=== PATIENT | female | born 1935 | race Caucasian/White ===

== ENCOUNTER → 2018-03-08 | Outpatient (CLI) | payer MEDICARE ==
--- NOTE | 2018-03-09 13:01 | MM ---
Reason for exam: screening (asymptomatic). Last mammogram was performed 1 year ago. History: Benign excisional biopsy of the right breast. Took estrogen for 6 months. Physical Findings: A clinical breast exam by your physician is recommended on an annual basis and results should be correlated with mammographic findings. MG Screening Mammo w CAD Bilateral CC and MLO view(s) were taken. Prior study comparison: March 08, 2017, mammogram. January 09, 2016, mammogram. The breast tissue is heterogeneously dense. This may lower the sensitivity of mammography. Stable benign calcifications. There is no discrete abnormality. No significant changes when compared with prior studies. ASSESSMENT: Benign, BI-RAD 2 RECOMMENDATION: Routine screening mammogram of both breasts in 1 year.
== END | disposition home or self-care (01) ==
LOC: RADMAMWWP 10:53
PROVIDERS: ATTEND Family Medicine
DX: Z12.31 Encounter for screening mammogram for malignant neoplasm of breast (principal)
CPT/HCPCS: 77067

== ENCOUNTER 2022-10-28 17:57 | Inpatient (IN) | payer MEDICARE ==
[2022-10-28] MEDS ORDERED: DILTIAZEM DRIP BOLUS FROM BAG 1 MG SOLN IV ONE (19:09)
[2022-10-28] MEDS ORDERED: ENOXAPARIN 80 MG/0.8 ML SYRINGE SQ STA (19:10)
--- NOTE | 2022-10-28 19:11 | XR ---
EXAMINATION TYPE: XR chest 1V portable DATE OF EXAM: 10/28/2022 7:05 PM COMPARISON: none TECHNIQUE: XR chest 1V portable Frontal view of the chest. CLINICAL INDICATION:Female, 86 years old with history of dysrhythmia; FINDINGS: Lungs/Pleura: Low lung volumes are present. There is no evidence of pleural effusion, focal consolida tion, or pneumothorax. Pulmonary vascularity: Unremarkable. Heart/mediastinum: Cardiomediastinal silhouette is unremarkable. Musculoskeletal: No acute osseous pathology. IMPRESSION: No acute cardiopulmonary disease/process.
--- NOTE | 2022-10-28 19:14 | ED ---
General Adult HPI - General Chief complaint: Nausea/Vomiting/Diarrhea Stated complaint: Weakness Time Seen by Provider: 10/28/22 18:49 Source: patient Mode of arrival: ambulatory Limitations: no limitations - History of Present Illness Initial comments: this patient is an 86-year-old woman with history of hypertension who presents to have evaluation of a constellation of symptoms that started approximately 5 days ago. She initially started with generalized malaise and then developed nausea vomiting and diarrhea on Wednesday. She did not note any hematemesis or coffee grounds. The patient did not have any bloody or dark tarry stools. She did not note abdominal pain other than some crampy discomfort. She states over the past couple of days she has been getting more fatigued and weak. Onset/Timin -: days(s) Severity scale (1-10): 0 Improves with: none Worsens with: none Associated Symptoms: nausea/vomiting, weakness Treatments Prior to Arrival: none - Related Data Home Medications Medication Instructions Recorded Confirmed Atorvastatin [Lipitor] 40 mg PO DAILY 10/28/22 10/28/22 Ondansetron Odt [Zofran ODT] 4 mg PO Q8HR PRN 10/28/22 10/28/22 Vit C/E/Zn/Coppr/Lutein/Zeaxan 1 cap PO DAILY 10/28/22 10/28/22 [Preservision Areds 2 Softgel] gemfibroziL [Lopid] 600 mg PO BID 10/28/22 10/28/22 Previous Rx's Medication Instructions Recorded Apixaban [Eliquis] 5 mg PO BID #60 tab 11/02/22 Famotidine [Pepcid] 20 mg PO DAILY #7 tablet 11/02/22 Magnesium Oxide [Mag-Ox] 400 mg PO BID 7 Days #14 tab 11/02/22 Metoprolol Tartrate [Lopressor] 25 mg PO BID #60 tab 11/02/22 Tamsulosin [Flomax] 0.4 mg PO PC-BRKFST #30 cap 11/02/22 cefUROXime axetiL [Ceftin] 500 mg PO BID 7 Days #14 tab 11/02/22 Allergies Allergy/AdvReac Type Severity Reaction Status Date / Time Penicillins Allergy Rash/Hives Verified 10/28/22 20:40 Review of Systems ROS Statement: Those systems with pertinent positive or pertinent negative responses have been documented in the HPI. ROS Other: All systems not noted in ROS Statement are negative. Constitutional: Reports: weakness. Denies: fever, chills Respiratory: Denies: cough, dyspnea Cardiovascular: Reports: chest pain, palpitations. Denies: orthopnea, edema, syncope Gastrointestinal: Reports: nausea, vomiting, diarrhea. Denies: abdominal pain, constipation, hematemesis, melena, hematochezia Genitourinary: Denies: dysuria, hematuria Musculoskeletal: Denies: back pain Skin: Denies: rash Neurological: Denies: headache, weakness Past Medical History Past Medical History: Chest Pain / Angina, Hypertension Additional Past Medical History / Comment(s): Bladder infection History of Any Multi-Drug Resistant Organisms: None Reported Past Surgical History: No Surgical Hx Reported Past Psychological History: No Psychological Hx Reported Smoking Status: Never smoker Past Alcohol Use History: None Reported Past Drug Use History: None Reported General Exam Limitations: no limitations General appearance: alert, in no apparent distress Head exam: Present: atraumatic, normocephalic Eye exam: Present: normal appearance. Absent: scleral icterus, conjunctival injection ENT exam: Present: mucous membranes dry Neck exam: Present: normal inspection, full ROM Respiratory exam: Present: normal lung sounds bilaterally. Absent: respiratory distress, wheezes, rales, rhonchi, stridor, accessory muscle use Cardiovascular Exam: Present: tachycardia, irregular rhythm, normal heart sounds. Absent: systolic murmur, diastolic murmur, rubs, gallop GI/Abdominal exam: Present: soft. Absent: distended, tenderness, guarding, rebound, rigid, mass Extremities exam: Present: normal inspection, normal capillary refill. Absent: pedal edema, calf tenderness Back exam: Present: normal inspection. Absent: CVA tenderness (R), CVA tenderness (L) Neurological exam: Present: alert, oriented X3. Absent: motor sensory deficit Skin exam: Present: warm, dry, intact, normal color. Absent: rash Course Vital Signs 10/28/22 10/28/22 10/28/22 18:12 19:40 20:33 Temperature 98.8 F Pulse Rate 111 H 130 H 128 H Pulse Rate [ [employer] Counter Person ] Respiratory 20 18 17 Rate Blood Pressure 133/67 80/39 87/66 O2 Sat by Pulse 96 Oximetry 0410/28/22 10/28/22 21:37 21:45 22:22 Temperature Pulse Rate 134 H 121 H 114 H Pulse Rate [ [employer] Counter Person ] Respiratory 18 16 16 Rate Blood Pressure 94/77 104/77 93/55 O2 Sat by Pulse Oximetry 10/28/22 10/29/22 10/29/22 23:37 00:00 02:07 Temperature Pulse Rate 121 H 113 H 120 H Pulse Rate [ [employer] Counter Person ] Respiratory 18 16 18 Rate Blood Pressure 85/52 80/46 98/38 O2 Sat by Pulse 95 Oximetry 10/29/22 10/29/22 10/29/22 03:41 04:48 06:10 Temperature Pulse Rate 107 H 110 H 116 H Pulse Rate [ [employer] Counter Person ] Respiratory 18 18 16 Rate Blood Pressure 88/56 92/68 84/60 O2 Sat by Pulse Oximetry 10/29/22 10/29/22 10/29/22 07:15 08:00 08:20 Temperature 98.2 F Pulse Rate 114 H 115 H Pulse Rate [ 113 H [employer] Counter Person ] Respiratory 16 18 18 Rate Blood Pressure 97/68 82/61 O2 Sat by Pulse 97 Oximetry EKG Findings - EKG Results: EKG: interpreted by MARIA VICTORIA, normal ST/T EKG shows: tachycardia (rate 152 bpm), atrial fibrillation Procedures - Sepsis Sepsis Focused Exam #1 Sepsis Focused Exam Complete: Yes Vital Signs & RN Notes Reviewed: Yes Capillary Refill: < 2 Seconds: Fingers Peripheral Pulses: Normal: Radial (R) Skin Color: Normal for Patient Respiratory Exam: normal lung sounds Cardiovascular Exam: tachycardia, irregular rhythm Medical Decision Making - Medical Decision Making This patient is an 86-year-old woman presenting with nausea vomiting and diarrhea for approximately 5-6 days, becoming progressively more weak and fatigued. She has no history of kidney failure or of atrial fibrillation but presents with both of these conditions. Patient also with urinary tract infection and sepsis. Patient started on fluid boluses, antibiotics, Cardizem, Lovenox. The case is discussed with admitting physician and with government teacher. Treatment recommendations are incorporated. Consultations ordered. The patient did have chest x-ray which I interpreted as not showing acute infiltrate, congestive heart failure, pneumothorax. Was pt. sent in by a medical professional or institution (, PA, [facility], urgent care, hospital, or detention...) When possible be specific @ -[No] Did you speak to anyone other than the patient for history (EMS, parent, family, police, friend...)? What history was obtained from this source @ -[No] Did you review nursing and triage notes (agree or disagree)? Why? @ -[I reviewed and agree with nursing and triage notes] Were old charts reviewed (outside hosp., previous admission, EMS record, old EKG, old radiological studies, urgent care reports/EKG's, detention records)? Report findings @ -[No old charts were reviewed] Differential Diagnosis (chest pain, altered mental status, abdominal pain women, abdominal pain men, vaginal bleeding, weakness, fever, dyspnea, syncope, headache, dizziness, GI bleed, back pain, seizure, CVA, palpatations, mental health, musculoskeletal)? @ -[MDM differential vomiting EKG interpreted by me (3pts min.). @ -[As above] X-rays interpreted by me (1pt min.). @ -[None done] CT interpreted by me (1pt min.). @ -[None done] U/S interpreted by me (1pt. min.). @ -[None done] What testing was considered but not performed or refused? (CT, X-rays, U/S, labs)? Why? @ -[None] What meds were considered but not given or refused? Why? @ -[None] Did you discuss the management of the patient with other professionals (professionals i.e. , PA, [facility], lab, RT, psych nurse, social worker masters, cio, teacher, chief sales officer, bilingual case manager)? Give summary @ -[Admitting physician Was smoking cessation discussed for >3mins.? @ -[No] Was critical care preformed (if so, how long)? @ -[Yes 35 minutes Were there social determinants of health that impacted care today? How? (Homelessness, low income, unemployed, alcoholism, drug addiction, transportation, low edu. Level, literacy, decrease access to med. care, skilled nursing, rehab)? @ -[No] Was there de-escalation of care discussed even if they declined (Discuss DNR or withdrawal of care, Hospice)? DNR status @ -[No] What co-morbidities impacted this encounter? (DM, HTN, Smoking, COPD, CAD, Cancer, CVA, ARF, Chemo, Hep., AIDS, mental health diagnosis, sleep apnea, morbid obesity)? @ -[None] Was patient admitted / discharged? Hospital course, mention meds given and route, prescriptions, significant lab abnormalities, going to OR and other pertinent info. @ -[The patient is admitted to have further care as well as multiple medical consultations. The patient is started on Cardizem for the atrial fibrillation. She is started on antibiotics and fluids for urinary tract infection/sepsis. Fluids also to treat the hyponatremia. Undiagnosed new problem with uncertain prognosis? @ -[No] Drug Therapy requiring intensive monitoring for toxicity (Heparin, Nitro, Insulin, Cardizem)? @ -[Cardizem Were any procedures done? @ -[No] Diagnosis/symptom? @ -1. Acute nausea and vomiting 2. Acute renal failure 3. New onset atrial fibrillation, rapid ventricular response, acute 4. Urinary tract infection, acute 5. Hyponatremia 6. Lactic acidosis 7. Elevated troponin I Acute, or Chronic, or Acute on Chronic? @ -[default] Uncomplicated (without systemic symptoms) or Complicated (systemic symptoms)? @ -[Complicated Side effects of treatment? @ -[No] Exacerbation, Progression, or Severe Exacerbation? @ -[No] Poses a threat to life or bodily function? How? (Chest pain, [place], [place], pneumonia, PE, COPD, DKA, ARF, appy, cholecystitis, CVA, Diverticulitis, Homicidal, Suicidal, threat to staff... and all critical care pts) @ -[Yes - Lab Data Result diagrams: 11/02/22 07:36 11/02/22 07:36 Lab Results 10/28/22 10/28/22 10/28/22 Range/Units 19:06 19:06 19:06 WBC 12.2 H (3.8-10.6) k/uL RBC 4.41 (3.80-5.40) m/uL Hgb 11.6 (11.4-16.0) gm/dL Hct 35.1 (34.0-46.0) % MCV 79.7 L (80.0-100.0) fL MCH 26.3 (25.0-35.0) pg MCHC 33.0 (31.0-37.0) g/dL RDW 15.1 (11.5-15.5) % Plt Count 200 (150-450) k/uL MPV 8.2 Neutrophils % 91 % Lymphocytes % 3 % Monocytes % 3 % Eosinophils % 1 % Basophils % 0 % Neutrophils # 11.1 H (1.3-7.7) k/uL Lymphocytes # 0.4 L (1.0-4.8) k/uL Monocytes # 0.4 (0-1.0) k/uL Eosinophils # 0.1 (0-0.7) k/uL Basophils # 0.0 (0-0.2) k/uL PT 10.6 (9.0-12.0) sec INR 1.0 (<1.2) APTT 23.8 (22.0-30.0) sec Sodium 123 L (137-145) mmol/L Potassium 3.3 L (3.5-5.1) mmol/L Chloride 91 L (98-107) mmol/L Carbon Dioxide 13 L (22-30) mmol/L Anion Gap 19 mmol/L BUN 60 H (7-17) mg/dL Creatinine 3.53 H (0.52-1.04) mg/dL Est GFR (CKD-EPI)AfAm 13 (>60 ml/min/1.73 sqM) Est GFR (CKD-EPI)NonAf 11 (>60 ml/min/1.73 sqM) Glucose 159 H (74-99) mg/dL Lactic Ac Sepsis Rflx Plasma Lactic Acid Pawan (0.7-2.0) mmol/L Calcium 7.6 L (8.4-10.2) mg/dL Magnesium 2.0 (1.6-2.3) mg/dL Total Bilirubin 1.3 (0.2-1.3) mg/dL AST 102 H (14-36) U/L ALT 45 H (4-34) U/L Alkaline Phosphatase 204 H (38-126) U/L Troponin I (0.000-0.034) ng/mL Total Protein 6.2 L (6.3-8.2) g/dL Albumin 3.2 L (3.5-5.0) g/dL Urine Color Urine Appearance (Clear) Urine pH (5.0-8.0) Ur Specific Waite (1.001-1.035) Urine Protein (Negative) Urine Glucose (UA) (Negative) Urine Ketones (Negative) Urine Blood (Negative) Urine Nitrite (Negative) Urine Bilirubin (Negative) Urine Urobilinogen (<2.0) mg/dL Ur Leukocyte Esterase (Negative) Urine RBC (0-5) /hpf Urine WBC (0-5) /hpf Urine WBC Clumps (None) /hpf Urine Bacteria (None) /hpf Urine Mucus (None) /hpf Influenza Type A (PCR) (Not Detectd) Influenza Type B (PCR) (Not Detectd) RSV (PCR) (Not Detectd) SARS-CoV-2 (PCR) (Not Detectd) 10/28/22 10/28/22 10/28/22 Range/Units 19:06 19:12 20:20 WBC (3.8-10.6) k/uL RBC (3.80-5.40) m/uL Hgb (11.4-16.0) gm/dL Hct (34.0-46.0) % MCV (80.0-100.0) fL MCH (25.0-35.0) pg MCHC (31.0-37.0) g/dL RDW (11.5-15.5) % Plt Count (150-450) k/uL MPV Neutrophils % % Lymphocytes % % Monocytes % % Eosinophils % % Basophils % % Neutrophils # (1.3-7.7) k/uL Lymphocytes # (1.0-4.8) k/uL Monocytes # (0-1.0) k/uL Eosinophils # (0-0.7) k/uL Basophils # (0-0.2) k/uL PT (9.0-12.0) sec INR (<1.2) APTT (22.0-30.0) sec Sodium (137-145) mmol/L Potassium (3.5-5.1) mmol/L Chloride (98-107) mmol/L Carbon Dioxide (22-30) mmol/L Anion Gap mmol/L BUN (7-17) mg/dL Creatinine (0.52-1.04) mg/dL Est GFR (CKD-EPI)AfAm (>60 ml/min/1.73 sqM) Est GFR (CKD-EPI)NonAf (>60 ml/min/1.73 sqM) Glucose (74-99) mg/dL Lactic Ac Sepsis Rflx Plasma Lactic Acid Pawan (0.7-2.0) mmol/L Calcium (8.4-10.2) mg/dL Magnesium (1.6-2.3) mg/dL Total Bilirubin (0.2-1.3) mg/dL AST (14-36) U/L ALT (4-34) U/L Alkaline Phosphatase (38-126) U/L Troponin I 0.375 H* (0.000-0.034) ng/mL Total Protein (6.3-8.2) g/dL Albumin (3.5-5.0) g/dL Urine Color Yellow Urine Appearance Turbid H (Clear) Urine pH 5.5 (5.0-8.0) Ur Specific Waite 1.016 (1.001-1.035) Urine Protein 2+ H (Negative) Urine Glucose (UA) Negative (Negative) Urine Ketones Negative (Negative) Urine Blood Small H (Negative) Urine Nitrite Negative (Negative) Urine Bilirubin Negative (Negative) Urine Urobilinogen <2.0 (<2.0) mg/dL Ur Leukocyte Esterase Large H (Negative) Urine RBC 20 H (0-5) /hpf Urine WBC >182 H (0-5) /hpf Urine WBC Clumps Many H (None) /hpf Urine Bacteria Many H (None) /hpf Urine Mucus Rare H (None) /hpf Influenza Type A (PCR) Not Detected (Not Detectd) Influenza Type B (PCR) Not Detected (Not Detectd) RSV (PCR) Not Detected (Not Detectd) SARS-CoV-2 (PCR) Not Detected (Not Detectd) 10/28/22 10/28/22 Range/Units 20:27 21:06 WBC (3.8-10.6) k/uL RBC (3.80-5.40) m/uL Hgb (11.4-16.0) gm/dL Hct (34.0-46.0) % MCV (80.0-100.0) fL MCH (25.0-35.0) pg MCHC (31.0-37.0) g/dL RDW (11.5-15.5) % Plt Count (150-450) k/uL MPV Neutrophils % % Lymphocytes % % Monocytes % % Eosinophils % % Basophils % % Neutrophils # (1.3-7.7) k/uL Lymphocytes # (1.0-4.8) k/uL Monocytes # (0-1.0) k/uL Eosinophils # (0-0.7) k/uL Basophils # (0-0.2) k/uL PT (9.0-12.0) sec INR (<1.2) APTT (22.0-30.0) sec Sodium (137-145) mmol/L Potassium (3.5-5.1) mmol/L Chloride (98-107) mmol/L Carbon Dioxide (22-30) mmol/L Anion Gap mmol/L BUN (7-17) mg/dL Creatinine (0.52-1.04) mg/dL Est GFR (CKD-EPI)AfAm (>60 ml/min/1.73 sqM) Est GFR (CKD-EPI)NonAf (>60 ml/min/1.73 sqM) Glucose (74-99) mg/dL Lactic Ac Sepsis Rflx Y Plasma Lactic Acid Pawan 3.0 H* (0.7-2.0) mmol/L Calcium (8.4-10.2) mg/dL Magnesium (1.6-2.3) mg/dL Total Bilirubin (0.2-1.3) mg/dL AST (14-36) U/L ALT (4-34) U/L Alkaline Phosphatase (38-126) U/L Troponin I (0.000-0.034) ng/mL Total Protein (6.3-8.2) g/dL Albumin (3.5-5.0) g/dL Urine Color Urine Appearance (Clear) Urine pH (5.0-8.0) Ur Specific Waite (1.001-1.035) Urine Protein (Negative) Urine Glucose (UA) (Negative) Urine Ketones (Negative) Urine Blood (Negative) Urine Nitrite (Negative) Urine Bilirubin (Negative) Urine Urobilinogen (<2.0) mg/dL Ur Leukocyte Esterase (Negative) Urine RBC (0-5) /hpf Urine WBC (0-5) /hpf Urine WBC Clumps (None) /hpf Urine Bacteria (None) /hpf Urine Mucus (None) /hpf Influenza Type A (PCR) (Not Detectd) Influenza Type B (PCR) (Not Detectd) RSV (PCR) (Not Detectd) SARS-CoV-2 (PCR) (Not Detectd) Critical Care Time Critical Care Time: Yes (35 minutes) Disposition Clinical Impression: Urinary tract infection, Sepsis, Atrial fibrillation with RVR, Acute renal failure, Hyponatremia Disposition: ADMITTED IP TO THIS HOSP Condition: Stable Is patient prescribed a controlled substance at d/c from ED?: No
[2022-10-28 19:22] LABS: Basophils % (A) 0 %; Eosinophils # (A) 0.1 k/uL (0-0.7); Eosinophils % (A) 1 %; HCT 35.1 % (34.0-46.0); HGB 11.6 gm/dL (11.4-16.0); Lymphocytes # (A) 0.4 k/uL (1.0-4.8); Lymphocytes % (A) 3 %; MCH 26.3 pg (25.0-35.0); MCV 79.7 fL (80.0-100.0); Mean Platelet Volume 8.2; Monocytes # (A) 0.4 k/uL (0-1.0); Monocytes % (A) 3 %; Neutrophils # (A) 11.1 k/uL (1.3-7.7); Neutrophils % (A) 91 %; Platelet Count 200 k/uL (150-450); RBC 4.41 m/uL (3.80-5.40); RDW 15.1 % (11.5-15.5); WBC 12.2 k/uL (3.8-10.6)
[2022-10-28 19:29] LABS: Partial Thromboplastin Time 23.8 sec (22.0-30.0); Prothrombin Time 10.6 sec (9.0-12.0)
[2022-10-28] MEDS ORDERED: SODIUM CHLORIDE 0.9% 500 ML 500 ML IV STA ×2 (19:44→20:06)
[2022-10-28 19:45] LABS: Calcium 7.6 mg/dL (8.4-10.2); Total Bilirubin 1.3 mg/dL (0.2-1.3)
[2022-10-28 19:50] LABS: Albumin 3.2 g/dL (3.5-5.0); Potassium 3.3 mmol/L (3.5-5.1); Total Protein 6.2 g/dL (6.3-8.2)
[2022-10-28] MEDS ORDERED: POTASSIUM CHLORIDE ER 20 MEQ TAB.ER PO STA (20:06)
[2022-10-28] MEDS ORDERED: SODIUM CHLORIDE 0.9% 1,000 ML IV STA (20:06)
[2022-10-28] MEDS: DILTIAZEM 125 MG in SODIUM CHLORIDE 0.9% 100 ML IV SCH (21:23)
[2022-10-28 22:14] LABS: Appearance,Urine Turbid (Clear); Bacteria,Urine Many /hpf; Bilirubin,Urine Negative (Negative); Blood,Urine Small (Negative); Color,Urine Yellow; Glucose,Urine (UA) Negative (Negative); Ketones,Urine Negative (Negative); Leukocyte Esterase,Urine Large (Negative); Mucus,Urine Rare /hpf; Nitrite,Urine Negative (Negative); PH, Urine 5.5 (5.0-8.0); Protein,Urine 2+ (Negative); RBC,Urine 20 /hpf (0-5); Specific Gravity,Urine 1.016 (1.001-1.035); Urobilinogen,Urine <2.0 mg/dL (<2.0); WBC,Urine >182 /hpf (0-5)
[2022-10-28] MEDS ORDERED: VANCOMYCIN IV PER PHARMACY 1 EACH MISC MISCELLANE PRN (23:28)
[2022-10-28] MEDS ORDERED: VANCOMYCIN 1,250 MG in SODIUM CHLORIDE 0.9% 250 ML IVPB STA (23:36)
[2022-10-28] MEDS ORDERED: METHADONE 10 MG TAB PO STA (23:58)
[2022-10-29] MEDS ORDERED: ENOXAPARIN 80 MG/0.8 ML SYRINGE SQ SCH (09:00)
[2022-10-29] MEDS ORDERED: SODIUM CHLORIDE 0.9% 1,000 ML IV SCH (09:15)
[2022-10-29] MEDS ORDERED: SODIUM CHLORIDE 0.9% 500 ML 500 ML IV ONE (09:17)
[2022-10-29] MEDS ORDERED: ONDANSETRON ODT 4 MG TAB PO PRN (11:01)
[2022-10-29] MEDS: METOPROLOL TARTRATE 25 MG TAB PO SCH ×2 (11:31→20:38)
--- NOTE | 2022-10-29 11:32 | P.NPCON ---
History of Present Illness - Reason for Consult acute renal failure - History of Present Illness Reason for consultation: Acute kidney injury History of present illness: Patient is a 86-year-old female seen in renal consultation for acute kidney injury. Patient presented to the hospital due to generalized weakness. Patient's stay she felt as if she had the flu. She does admit to body aches but denies fever. She admits to burning with urination. Denies gross hematuria. Patient states she last voided yesterday morning. She denies any melena or hematochezia. No hemoptysis. Denies use of nonsteroidals. No shortness of breath but did have chest pain with palpitations. Patient was noted to be in A. fib with RVR and is currently on Cardizem drip. Patient's blood pressure has been on the lower side in the systolic 80s. She received a liter of normal saline bolus and has another half a liter bolus water. She is also receiving normal saline at 75 mL an hour. No edema. No history of diabetes. She was taking losartan as well as thiazide diuretic at home which are both currently held. She is on antibiotics for UTI. Family present at bedside. Vital signs - Blood pressure in the lower side. In A. fib. General: No acute distress. HEENT: Head exam is unremarkable. LUNGS: No audible rhonchi or wheezes. HEART: Irregular rate and rhythm. ABDOMEN: Mild generalized tenderness. No distention. EXTREMITITES: No edema. Past Medical History Past Medical History: Chest Pain / Angina, Hypertension Additional Past Medical History / Comment(s): Bladder infection History of Any Multi-Drug Resistant Organisms: None Reported Past Surgical History: No Surgical Hx Reported, Hysterectomy Past Psychological History: No Psychological Hx Reported Smoking Status: Never smoker Past Alcohol Use History: None Reported Past Drug Use History: None Reported Medications and Allergies Home Medications Medication Instructions Recorded Confirmed Type Atorvastatin [Lipitor] 40 mg PO DAILY 10/28/22 10/28/22 History Losartan/Hydrochlorothiazide 1 tab PO DAILY 10/28/22 10/28/22 History [Losartan-Hctz 100-12.5 mg Tab] Metoprolol Succinate (ER) [Toprol 50 mg PO HS 10/28/22 10/28/22 History Xl] Ondansetron Odt [Zofran Odt] 4 mg PO Q8HR PRN 10/28/22 10/28/22 History Vit C/E/Zn/Coppr/Lutein/Zeaxan 1 cap PO DAILY 10/28/22 10/28/22 History [Preservision Areds 2 Softgel] gemfibroziL [Lopid] 600 mg PO BID 10/28/22 10/28/22 History Allergies Allergy/AdvReac Type Severity Reaction Status Date / Time Penicillins Allergy Rash/Hives Verified 10/28/22 20:40 Physical Exam Vitals: Vital Signs Temp Pulse Resp BP Pulse Ox 10/29/22 08:20 98.2 F 115 H 18 82/61 97 10/29/22 07:15 114 H 16 97/68 10/29/22 06:10 116 H 16 84/60 10/29/22 04:48 110 H 18 92/68 10/29/22 03:41 107 H 18 88/56 10/29/22 02:07 120 H 18 98/38 10/29/22 00:00 113 H 16 80/46 95 10/28/22 23:37 121 H 18 85/52 10/28/22 22:22 114 H 16 93/55 10/28/22 21:45 121 H 16 104/77 10/28/22 21:37 134 H 18 94/77 10/28/22 20:33 128 H 17 87/66 10/28/22 19:40 130 H 18 80/39 10/28/22 18:12 98.8 F 111 H 20 133/67 96 Intake and Output 10/28/22 10/29/22 10/29/22 22:59 06:59 14:59 Intake Total 49.333 Balance 49.333 Intake: Intake, IV Titration 49.333 Amount Diltiazem 125 mg In 49.333 Sodium Chloride 0.9% 100 ml @ 5 MG/HR 5 mls/hr IV .Q24H [facility] Rx#:[id number] Other: Weight 70.76 kg 70.76 kg Results - Lab Results Most recent lab results Calcium 7.6 mg/dL (8.4-10.2) L 10/28/22 19:06 Magnesium 2.0 mg/dL (1.6-2.3) 10/28/22 19:06 10/28/22 19:06 10/28/22 19:06 Assessment and Plan Plan: Assessment: 1. Acute kidney injury secondary to hemodynamic ATN and severe sepsis. Creatinine 3.53 on admission. Unknown baseline renal function. 2. Hypovolemic hyponatremia further worsened with the use of thiazide diuretic. 3. Metabolic acidosis secondary to lactic acidosis, acute kidney injury and IV fluids. 4. A. fib with RVR maintain on Cardizem drip. Also on Lopressor. Cardiology following. 5. UTI on antibiotics. 6. Benign hypertension. Blood pressure currently in the lower side. Antihypertensives held. 7. Hypokalemia from diuretics. Magnesium normal. Replaced. Plan: Maintain IV fluids. Will change to bicarb drip if no improvement in acidosis. Continue to hold antihypertensives. Check renal ultrasound. Check bladder scan to make sure no urinary retention. Follow-up morning labs. Monitor vancomycin levels. Dose to be adjusted for renal function. Continue to assess daily for need for renal replacement therapy. Discussed with patient, nurse and family present at bedside. Thank you for the consultation. I will continue to follow the patient with you during her hospital stay.
[2022-10-29 11:36] LABS: Basophils % (A) 0 %; Eosinophils % (A) 0 %; HGB 10.8 gm/dL (11.4-16.0); Hypochromasia Slight; Lymphocytes # (A) 0.4 k/uL (1.0-4.8); Lymphocytes % (A) 4 %; MCH 25.9 pg (25.0-35.0); MCHC 30.9 g/dL (31.0-37.0); Mean Platelet Volume 8.6; Monocytes # (A) 0.3 k/uL (0-1.0); Monocytes % (A) 3 %; Neutrophils # (A) 9.2 k/uL (1.3-7.7); Neutrophils % (A) 91 %; Platelet Count 178 k/uL (150-450); RBC 4.16 m/uL (3.80-5.40); RDW 15.1 % (11.5-15.5); WBC 10.1 k/uL (3.8-10.6)
[2022-10-29 11:42] LABS: ALT 48 U/L (4-34); AST 82 U/L (14-36); African American GFR (CKD) 14 (>60 ml/min/1.73 sqM); Albumin 2.8 g/dL (3.5-5.0); Alkaline Phosphatase 231 U/L (38-126); Anion Gap 19 mmol/L; Blood Urea Nitrogen 58 mg/dL (7-17); Carbon Dioxide 12 mmol/L (22-30); Chloride 99 mmol/L (98-107); Glucose 90 mg/dL (74-99); Non-African American GFR(CKD) 12 (>60 ml/min/1.73 sqM); Sodium 130 mmol/L (137-145); Total Bilirubin 0.8 mg/dL (0.2-1.3); Total Protein 5.6 g/dL (6.3-8.2)
--- NOTE | 2022-10-29 11:53 | P.CRDCN ---
History of Present Illness History of present illness: HISTORY OF PRESENT ILLNESS: This is a 86-year-old female with a past medical history significant for hypertension and hyperlipidemia. 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 We have been asked to see the patient in consultation for atrial fibrillation with RVR. Patient examined at the bedside. Patient states she started to feel unwell on Wednesday. She reports having nausea. She reports having vomiting and diarrhea. She states that she has had generalized weakness. She states she has had no appetite and reports decreased oral intake. She denies any use of NSAIDs at home. She denied any chest pain or shortness of breath. She denied any fluttering in her chest or palpitations. Patient presented to the hospital for further evaluation. Patient was found to have urinary tract infection with sepsis, acute renal failure, hyponatremia, and atrial fibrillation with RVR. The patient denies a history of atrial fibrillation. The patient was started on therapeutic Lovenox and IV Cardizem. She remains in atrial for relation of the time of my examination with a heart rate around 110. She is hypotensive this morning with a blood pressure 82/61. * EKG reveals atrial fibrillation with RVR * Chest xray negative for acute process * Laboratory data: WBC 10.1. Hemoglobin 10.8. Platelet count 178. Sodium 123. Potassium 3.3. BUN 60. Creatinine 3.53. Lactic acid 3.0. Repeat 1.0. AST 102. ALT 45. Troponin 0.375. * Current home cardiac medications include metoprolol succinate 50 mg at night, losartan-hydrochlorothiazide 100-12.5mg daily, Lipitor 40 mg daily, and Lopid 600 mg twice a day REVIEW OF SYSTEMS: At the time of my exam: CONSTITUTIONAL: Denies fever or chills. HEENT: Denies blurred vision, vision changes, or eye pain. Denies hemoptysis CARDIOVASCULAR: Denies chest pain. Denies orthopnea. Denies PND. Denies palpitations RESPIRATORY: Denies shortness of breath. GASTROINTESTINAL: Denies abdominal pain. Denies nausea or vomiting. HEMATOLOGIC: Denies bleeding disorders. GENITOURINARY: Denies any blood in urine. SKIN: Denies pruitis. Denies rash. PHYSICAL EXAM: VITAL SIGNS: Reviewed. GENERAL: Well-developed in no acute distress. HEENT: Head is normocephalic. Pupils are equal, round. Sclerae anicteric. Mucous membranes of the mouth are moist. Neck supple. No JVD or thyromegaly LUNGS: Respirations even and unlabored. Lungs essentially clear to auscultation bilaterally. HEART: Tachycardic. Regular rate and rhythm. S1 and S2 heard. ABDOMEN: Soft. Nondistended. Nontender. EXTREMITIES: Normal range of motion. No clubbing or cyanosis. Peripheral pulses intact. No lower extremity edema NEUROLOGIC: Awake and alert. Oriented x 3. ASSESSMENT: Generalized weakness Nausea and vomiting with diarrhea Urinary tract infection with sepsis Hyponatremia Lactic acidosis Acute renal failure Abnormal troponin, suspect secondary to above, no evidence of acute coronary syndrome New-onset atrial fibrillation with RVR Elevated LFTs Hypotension History of hypertension Hyperlipidemia PLAN: Obtain 2-D echo to assess cardiac structure and function Patient currently on therapeutic Lovenox 70 mg every 12 hours. We'll transition to oral when renal function improves-Eliquis 5mg BID. Patient to receive IV fluid bolus this morning. Followed by IV fluids at 75 mL an hour Resume metoprolol. Change dosing to 25 mg twice a day secondary to hypotension Wean Cardizem drip as tolerated Hold losartan secondary to kidney function and hypotension Hold Lipitor secondary to elevated LFTs Continue to monitor labs Continue telemetry monitoring Check TSH Further recommendations pending patient course Nurse practitioner note has been reviewed by physician. Signing provider agrees with the documented findings, assessment, and plan of care. Past Medical History Past Medical History: Chest Pain / Angina, Hypertension Additional Past Medical History / Comment(s): Bladder infection History of Any Multi-Drug Resistant Organisms: None Reported Past Surgical History: No Surgical Hx Reported Past Psychological History: No Psychological Hx Reported Smoking Status: Never smoker Past Alcohol Use History: None Reported Past Drug Use History: None Reported Medications and Allergies Home Medications Medication Instructions Recorded Confirmed Type Atorvastatin [Lipitor] 40 mg PO DAILY 10/28/22 10/28/22 History Losartan/Hydrochlorothiazide 1 tab PO DAILY 10/28/22 10/28/22 History [Losartan-Hctz 100-12.5 mg Tab] Metoprolol Succinate (ER) [Toprol 50 mg PO HS 10/28/22 10/28/22 History Xl] Ondansetron Odt [Zofran Odt] 4 mg PO Q8HR PRN 10/28/22 10/28/22 History Vit C/E/Zn/Coppr/Lutein/Zeaxan 1 cap PO DAILY 10/28/22 10/28/22 History [Preservision Areds 2 Softgel] gemfibroziL [Lopid] 600 mg PO BID 10/28/22 10/28/22 History Allergies Allergy/AdvReac Type Severity Reaction Status Date / Time Penicillins Allergy Rash/Hives Verified 10/28/22 20:40 Physical Exam Vitals: Vital Signs Temp Pulse Resp BP Pulse Ox 10/29/22 08:20 98.2 F 115 H 18 82/61 97 10/29/22 07:15 114 H 16 97/68 10/29/22 06:10 116 H 16 84/60 10/29/22 04:48 110 H 18 92/68 10/29/22 03:41 107 H 18 88/56 10/29/22 02:07 120 H 18 98/38 10/29/22 00:00 113 H 16 80/46 95 10/28/22 23:37 121 H 18 85/52 10/28/22 22:22 114 H 16 93/55 10/28/22 21:45 121 H 16 104/77 10/28/22 21:37 134 H 18 94/77 10/28/22 20:33 128 H 17 87/66 10/28/22 19:40 130 H 18 80/39 10/28/22 18:12 98.8 F 111 H 20 133/67 96 Intake and Output 10/28/22 10/29/22 10/29/22 22:59 06:59 14:59 Intake Total 49.333 Balance 49.333 Intake: Intake, IV Titration 49.333 Amount Diltiazem 125 mg In 49.333 Sodium Chloride 0.9% 100 ml @ 5 MG/HR 5 mls/hr IV .Q24H [facility] Rx#:[id number] Other: Weight 70.76 kg Results 10/29/22 10:34 10/29/22 10:34 Cardiac Enzymes 10/28/22 10/28/22 Range/Units 19:06 19:06 AST 102 H (14-36) U/L Troponin I 0.375 H* (0.000-0.034) ng/mL Coagulation 10/28/22 Range/Units 19:06 PT 10.6 (9.0-12.0) sec APTT 23.8 (22.0-30.0) sec CBC 10/28/22 Range/Units 19:06 WBC 12.2 H (3.8-10.6) k/uL RBC 4.41 (3.80-5.40) m/uL Hgb 11.6 (11.4-16.0) gm/dL Hct 35.1 (34.0-46.0) % Plt Count 200 (150-450) k/uL Comprehensive Metabolic Panel 10/28/22 Range/Units 19:06 Sodium 123 L (137-145) mmol/L Potassium 3.3 L (3.5-5.1) mmol/L Chloride 91 L (98-107) mmol/L Carbon Dioxide 13 L (22-30) mmol/L BUN 60 H (7-17) mg/dL Creatinine 3.53 H (0.52-1.04) mg/dL Glucose 159 H (74-99) mg/dL Calcium 7.6 L (8.4-10.2) mg/dL AST 102 H (14-36) U/L ALT 45 H (4-34) U/L Alkaline Phosphatase 204 H (38-126) U/L Total Protein 6.2 L (6.3-8.2) g/dL Albumin 3.2 L (3.5-5.0) g/dL Current Medications Generic Name Dose Route Start Last Admin Trade Name Freq PRN Reason Stop Dose Admin Diltiazem HCl 125 mg/ Sodium 125 mls @ 5 mls/hr 10/28/22 19:15 10/29/22 07:15 Chloride IV 5 mg/hr .Q24H [facility] 5 mls/hr Infusion 5 MG/HR Ceftriaxone Sodium 1 gm/ 50 mls @ 100 mls/hr 10/29/22 21:00 Sodium Chloride IVPB Q24H [facility] Vancomycin HCl 1,250 mg/ 250 mls @ 125 mls/hr 10/29/22 20:00 Sodium Chloride IVPB 10/29/22 21:59 ONCE ONE Miscellaneous Information 1 each 10/28/22 23:28 Vancomycin Iv Per Pharmacy 1 Each Misc MISCELLANE DIRECTED PRN Per Protocol Intake and Output 10/28/22 10/29/22 10/29/22 22:59 06:59 14:59 Intake Total 49.333 Balance 49.333 Intake: Intake, IV Titration 49.333 Amount Diltiazem 125 mg In 49.333 Sodium Chloride 0.9% 100 ml @ 5 MG/HR 5 mls/hr IV .Q24H [facility] Rx#:[id number] Other: Weight 70.76 kg 10/28/22 19:06 10/28/22 19:06
[2022-10-29] MEDS ORDERED: Potassium Replacement Protocol 1 EACH MISC MISCELLANE PRN (12:48)
[2022-10-29 12:53] LABS: T4, Free (Free Thyroxine) 1.42 ng/dL (0.78-2.19)
[2022-10-29] MEDS ORDERED: POTASSIUM CHLORIDE ER 20 MEQ TAB.ER PO ONE (13:00)
--- NOTE | 2022-10-29 13:12 | US ---
EXAMINATION TYPE: US kidneys/renal and bladder DATE OF EXAM: 10/29/2022 COMPARISON: NONE CLINICAL INDICATION: Female, 86 years old with history of jeanette; JEANETTE EXAM MEASUREMENTS: Right Kidney: 12.5 x 6.6 x 5.9 cm Left Kidney: 12.0 x 5.0 x 5.9 cm Multiple grayscale and color Doppler ultrasound images of both kidneys and urinary bladder were obtai tad. Right Kidney:Measures slightly enlarged. Two anechoic areas seen at mid. #1 measures 3.0 x 2.7 x 3.7 cm. #2 measures 3.2 x 2.7 x 2.5 cm. Left Kidney: Anechoic area seen medially: 1.0 x 1.3 x 1.1 cm. Hypoechoic lesion seen upper pole: 3.5 x 3.6 x 3.0 cm. Bladder: Appears anechoic. Bilateral Jets seen: Not seen during exam. No hydronephrosis or nephrolithiasis. Corticomedullary differentiation is maintained bilaterally. Franklyn ateral simple cysts identified with additional hypoechoic lesion within the upper pole of the left ki dney measuring 3.5 x 3.6 x 3.0 cm. No internal color flow identified. There is some posterior acousti c enhancement.. Urinary bladder appears anechoic. IMPRESSION: 1. No hydronephrosis or nephrolithiasis. 2. Bilateral simple renal cysts with additional hypoechoic cystic lesion within the superior pole lef t kidney. This could represent a hemorrhagic/proteinaceous cyst. Further evaluation with CT or MR abd omen with IV contrast (renal mass protocol) is recommended.
[2022-10-29] MEDS ORDERED: MELATONIN 3 MG TABLET PO PRN (13:18)
[2022-10-29] MEDS ORDERED: ACETAMINOPHEN TAB 325 MG TAB PO PRN (13:18)
[2022-10-29] MEDS ORDERED: LORazepam 0.5 MG TAB PO PRN (13:18)
[2022-10-29] MEDS ORDERED: ONDANSETRON 4 MG/2 ML VIAL IVP PRN (13:18)
[2022-10-29] MEDS ORDERED: DEXTROSE 5% IN WATER 1,000 ML with SODIUM BICARB (1 MEQ/ML) 100 ML IV SCH (13:30)
[2022-10-29] MEDS: ATORVASTATIN 40 MG TAB PO SCH (13:52)
[2022-10-29] MEDS: FENOFIBRATE 160 MG TAB PO SCH (13:52)
--- NOTE | 2022-10-29 15:27 | P.HPIM ---
History of Present Illness H&P Date: 10/29/22 Chief Complaint: Weak and tired This is a pleasant 86-year-old patient who follows with Dr. Ortiz. Chronic stable medical conditions include hypertension, hyperlipidemia, arthritis. Patient is passively old paper to get around. About 2 weeks ago she was diagnosed a UTI. Received antibiotics. About 5 days ago patient started having nausea vomiting and diarrhea that progressed. By time yesterday for biliary to get out of bed but able to keep much down weak and tired. She is having 2-3 bowel movements a day. Watery. No blood. Totally exhausted. In the ER she was found to be in atrial fibrillation with rapid ventricular rate. Was put on a Cardizem drip. Subcu Lovenox This morning laying in bed. Tired. On a soft diet. Other family members are present. No fever no chills Review of systems: GEN.: Tired EYES: None HEENT: None NECK: None RESPIRATORY: None CARDIOVASCULAR: None GASTROINTESTINAL: As above GENITOURINARY: None MUSCULOSKELETAL: Some joint pains LYMPHATICS: None HEMATOLOGICAL: None PSYCHIATRY: None NEUROLOGICAL: None Past medical history to include: Hypertension, hyperlipidemia Social history: Lives alone. No smoking. No alcohol. Physical examination: VITAL SIGNS: 98.8, 1:30, 18, 80/39, 96% room air upon presentation GENERAL: BMI 28.5, laying in bed awake tired. EYES: Pupils equal. Conjunctiva normal. HEENT: External appearance of nose and ears normal, oral cavity grossly normal. NECK: JVD not raised; masses not palpable. HEART: Heart sounds irregular; no edema. LUNGS: Respiratory rate normal; clear to auscultation. ABDOMEN: Soft, nontender, liver spleen not palpable, no masses palpable. PSYCH: [Alert and oriented x3; mood and affect tired MUSCULOSKELETAL:No Clubbing/cyanosis;muscles-grossly intact, OA NEUROLOGICAL: Cranial nerves grossly intact; no facial asymmetry, power and sensation grossly intact. LYMPHATICS: No lymph nodes palpable in the axilla and neck INVESTIGATIONS, reviewed in the clinical context: October 29: White count 10.1 hemoglobin 10.8 platelets 178 sodium 1:30 potassium 3 BUN 58 creatinine 3.36 bicarb 12 October 28: Hemoglobin 11.6 sodium 123 potassium 3.3 BUN 60 creatinine 3.53 Troponin I 0.375, 0.266 JSD 82 ALT 48 TSH 0.401 free T4 1 0.4 to UA negative for nitrite Influenza type A, B, RSV, COVID-19: Not detected EKG tracing personally reviewed by me-atrial fibrillation rate 130s Chest x-ray film personally reviewed by me-no infiltrates Assessment and plan: -New onset atrial fibrillation with a rapid ventricular rate IV Cardizem drip. Lovenox 70 mg subcu every 12 -Acute kidney injury combination of prerenal, ATN IV fluids -Acute metabolic acidosis from renal failure Sodium bicarbonate drip -Essential hypertension Lopressor 25 mg twice a day -Hypotension from A. fib with rapid ventricular rate increased acute kidney injury and present presentation IV fluids Hyperlipidemia Lopid, Lipitor -Possibly antibiotic associated diarrhea IV fluids. Diet has been advanced. -DO NOT RESUSCITATE Care was discussed with the patient in several family members bedside. Qu estions answered Past Medical History Past Medical History: Chest Pain / Angina, Hypertension Additional Past Medical History / Comment(s): Bladder infection History of Any Multi-Drug Resistant Organisms: None Reported Past Surgical History: No Surgical Hx Reported Past Psychological History: No Psychological Hx Reported Smoking Status: Never smoker Past Alcohol Use History: None Reported Past Drug Use History: None Reported Medications and Allergies Home Medications Medication Instructions Recorded Confirmed Type Atorvastatin [Lipitor] 40 mg PO DAILY 10/28/22 10/28/22 History Losartan/Hydrochlorothiazide 1 tab PO DAILY 10/28/22 10/28/22 History [Losartan-Hctz 100-12.5 mg Tab] Metoprolol Succinate (ER) [Toprol 50 mg PO HS 10/28/22 10/28/22 History Xl] Ondansetron Odt [Zofran Odt] 4 mg PO Q8HR PRN 10/28/22 10/28/22 History Vit C/E/Zn/Coppr/Lutein/Zeaxan 1 cap PO DAILY 10/28/22 10/28/22 History [Preservision Areds 2 Softgel] gemfibroziL [Lopid] 600 mg PO BID 10/28/22 10/28/22 History Allergies Allergy/AdvReac Type Severity Reaction Status Date / Time Penicillins Allergy Rash/Hives Verified 10/28/22 20:40 Physical Exam Vitals: Vital Signs Temp Pulse Resp BP Pulse Ox 10/29/22 08:20 98.2 F 115 H 18 82/61 97 10/29/22 07:15 114 H 16 97/68 10/29/22 06:10 116 H 16 84/60 10/29/22 04:48 110 H 18 92/68 10/29/22 03:41 107 H 18 88/56 10/29/22 02:07 120 H 18 98/38 10/29/22 00:00 113 H 16 80/46 95 10/28/22 23:37 121 H 18 85/52 10/28/22 22:22 114 H 16 93/55 10/28/22 21:45 121 H 16 104/77 10/28/22 21:37 134 H 18 94/77 10/28/22 20:33 128 H 17 87/66 10/28/22 19:40 130 H 18 80/39 10/28/22 18:12 98.8 F 111 H 20 133/67 96 Intake and Output 10/28/22 10/29/22 10/29/22 22:59 06:59 14:59 Intake Total 49.333 Balance 49.333 Intake: Intake, IV Titration 49.333 Amount Diltiazem 125 mg In 49.333 Sodium Chloride 0.9% 100 ml @ 5 MG/HR 5 mls/hr IV .Q24H [facility] Rx#:[id number] Other: Weight 70.76 kg Results CBC & Chem 7: 10/29/22 10:34 10/29/22 10:34 Labs: Abnormal Lab Results - Last 24 Hours (Table) 10/28/22 10/28/22 10/28/22 Range/Units 19:06 19:06 19:06 WBC 12.2 H (3.8-10.6) k/uL MCV 79.7 L (80.0-100.0) fL Neutrophils # 11.1 H (1.3-7.7) k/uL Lymphocytes # 0.4 L (1.0-4.8) k/uL Sodium 123 L (137-145) mmol/L Potassium 3.3 L (3.5-5.1) mmol/L Chloride 91 L (98-107) mmol/L Carbon Dioxide 13 L (22-30) mmol/L BUN 60 H (7-17) mg/dL Creatinine 3.53 H (0.52-1.04) mg/dL Glucose 159 H (74-99) mg/dL Plasma Lactic Acid Pawan (0.7-2.0) mmol/L Calcium 7.6 L (8.4-10.2) mg/dL AST 102 H (14-36) U/L ALT 45 H (4-34) U/L Alkaline Phosphatase 204 H (38-126) U/L Troponin I 0.375 H* (0.000-0.034) ng/mL Total Protein 6.2 L (6.3-8.2) g/dL Albumin 3.2 L (3.5-5.0) g/dL Urine Appearance (Clear) Urine Protein (Negative) Urine Blood (Negative) Ur Leukocyte Esterase (Negative) Urine RBC (0-5) /hpf Urine WBC (0-5) /hpf Urine WBC Clumps (None) /hpf Urine Bacteria (None) /hpf Urine Mucus (None) /hpf 10/28/22 10/28/22 Range/Units 20:20 20:27 WBC (3.8-10.6) k/uL MCV (80.0-100.0) fL Neutrophils # (1.3-7.7) k/uL Lymphocytes # (1.0-4.8) k/uL Sodium (137-145) mmol/L Potassium (3.5-5.1) mmol/L Chloride (98-107) mmol/L Carbon Dioxide (22-30) mmol/L BUN (7-17) mg/dL Creatinine (0.52-1.04) mg/dL Glucose (74-99) mg/dL Plasma Lactic Acid Pawan 3.0 H* (0.7-2.0) mmol/L Calcium (8.4-10.2) mg/dL AST (14-36) U/L ALT (4-34) U/L Alkaline Phosphatase (38-126) U/L Troponin I (0.000-0.034) ng/mL Total Protein (6.3-8.2) g/dL Albumin (3.5-5.0) g/dL Urine Appearance Turbid H (Clear) Urine Protein 2+ H (Negative) Urine Blood Small H (Negative) Ur Leukocyte Esterase Large H (Negative) Urine RBC 20 H (0-5) /hpf Urine WBC >182 H (0-5) /hpf Urine WBC Clumps Many H (None) /hpf Urine Bacteria Many H (None) /hpf Urine Mucus Rare H (None) /hpf Microbiology - Last 24 Hours (Table) 10/28/22 20:20 Urine Culture - Preliminary Urine,Catheterized
--- NOTE | 2022-10-29 17:29 | CA ---
Transthoracic Echo Report Name: Maia Patiño Age: 86 Gender: F : 1935 Exam Date: 10/29/2022 13:34 Exam Location: [facility] Ht (in): 62 Wt (lb): 156 Ordering Physician: Myesha Claros Attending/Referring Phys: [id number], Hyacinth Form Layer Zohreh Benjamin RDCS Procedure CPT: Indications: LV function Cardiac Hx: Technical Quality: Fair Contrast 1: Total Dose (mL): Contrast 2: Total Dose (mL): MEASUREMENTS (Male / Female) Normal Values 2D ECHO LV Diastolic Diameter PLAX 3.2 cm 4.2 - 5.9 / 3.9 - 5.3 cm LV Systolic Diameter PLAX 1.9 cm IVS Diastolic Thickness 1.1 cm 0.6 - 1.0 / 0.6 - 0.9 cm LVPW Diastolic Thickness 1.1 cm 0.6 - 1.0 / 0.6 - 0.9 cm LV Relative Wall Thickness 0.7 RV Internal Dim ED PLAX 3.5 cm LA Volume 47.1 cm??? 18 - 58 / 22 - 52 cm??? M-MODE Aortic Root Diameter MM 3.2 cm LA Systolic Diameter MM 4.9 cm LA Ao Ratio MM 1.6 AV Cusp Separation MM 1.2 cm DOPPLER AV Peak Velocity 138.6 cm/s AV Peak Gradient 7.7 mmHg AV Mean Velocity 103.5 cm/s AV Mean Gradient 4.7 mmHg AV Velocity Time Integral 25.6 cm LVOT Peak Velocity 114.7 cm/s LVOT Peak Gradient 5.3 mmHg LVOT Velocity Time Integral 19.1 cm MV Area PHT 3.3 cm??? Mitral E Point Velocity 134.3 cm/s Mitral A Point Velocity 0.4 cm/s Mitral E to A Ratio 310.2 MV Deceleration Time 232.9 ms MV E' Velocity 7.5 cm/s Mitral E to MV E' Ratio 17.8 TR Peak Velocity 272.3 cm/s TR Peak Gradient 29.7 mmHg Right Ventricular Systolic Press 34.0 mmHg FINDINGS Left Ventricle Left ventricular cavity size normal. Mildly increased left ventricular wall thickness. Normal left ventricular systolic function with no obvious regional wall motion abnormalities. Left ventricular ejection fraction is estimated at 55 %. Right Ventricle Right ventricular systolic pressure within normal limits. Mild right ventricular dilatation. Right Atrium Normal right atrial size. Left Atrium Normal left atrial size. Mitral Valve Structurally normal mitral valve. [id number] mitral regurgitation. Aortic Valve No aortic valve stenosis or regurgitation. Thickened aortic valve without stenosis. Tricuspid Valve Structurally normal tricuspid valve. Mild tricuspid regurgitation. Pulmonic Valve Structurally normal pulmonic valve. Pericardium No pericardial effusion. Aorta Normal size aortic root and proximal ascending aorta. CONCLUSIONS Normal LV function Mild to moderate mitral regurgitation Previewed by: Dr. Franco Dumont MD (Electronically Signed) Final Date: 29 October 2022 17:28
[2022-10-29] MEDS: DEXTROSE 5% IN WATER 1,000 ML with SODIUM BICARB (1 MEQ/ML) 150 ML IV SCH (17:32)
[2022-10-29] MEDS ORDERED: VANCOMYCIN 1,250 MG in SODIUM CHLORIDE 0.9% 250 ML IVPB ONE (20:00)
[2022-10-29] MEDS: DILTIAZEM 125 MG in SODIUM CHLORIDE 0.9% 100 ML IV SCH (20:17)
--- NOTE | 2022-10-29 22:41 | P.CONS ---
History of Present Illness - Reason for Consult Consult date: 10/29/22 Sepsis, UTI Requesting physician: Juancarlos Chapman - Chief Complaint Mental status changes x one day - History of Present Illness Patient is a 78-year-old female with a past medical history significant for hypertension and history of recurrent UTI presented to hospital for evaluation of generalized weakness malaise nausea did have an episode of vomiting some left-sided abdominal pain more of a dull aching 4-5 today no radiation specially nausea vomiting did have some constipation no loose stools did have some chills but no high-grade fever, Patient did have urinary symptoms of burning and some suprapubic discomfort and frequency however urine output has decreased over the last day or 2 per the patient patient presented to the hospital was afebrile she did have vital of 12.2 with a left shift did have elevated BUN and creatinine as well as elevated liver enzymes urine was positive influenza RSV and COVID testing was negative chest x-ray was negative for pneumonia patient did have abdominal ultrasound that was negative for hydronephrosis patient was started on Rocephin has been admitted to hospital infectious disease was consulted for further management of antibiotic therapy Review of Systems Positive point and negatives has been mentioned in the HPI, complete review of systems was performed and all other systems are negative Past Medical History Past Medical History: Chest Pain / Angina, Hypertension Additional Past Medical History / Comment(s): Bladder infection History of Any Multi-Drug Resistant Organisms: None Reported Past Surgical History: No Surgical Hx Reported Past Psychological History: No Psychological Hx Reported Smoking Status: Never smoker Past Alcohol Use History: None Reported Past Drug Use History: None Reported Medications and Allergies Home Medications Medication Instructions Recorded Confirmed Type Atorvastatin [Lipitor] 40 mg PO DAILY 10/28/22 10/28/22 History Ondansetron Odt [Zofran ODT] 4 mg PO Q8HR PRN 10/28/22 10/28/22 History Vit C/E/Zn/Coppr/Lutein/Zeaxan 1 cap PO DAILY 10/28/22 10/28/22 History [Preservision Areds 2 Softgel] gemfibroziL [Lopid] 600 mg PO BID 10/28/22 10/28/22 History Apixaban [Eliquis] 5 mg PO BID #60 tab 11/02/22 Rx Famotidine [Pepcid] 20 mg PO DAILY #7 tablet 11/02/22 Rx Magnesium Oxide [Mag-Ox] 400 mg PO BID 7 Days #14 tab 11/02/22 Rx Metoprolol Tartrate [Lopressor] 25 mg PO BID #60 tab 11/02/22 Rx Tamsulosin [Flomax] 0.4 mg PO PC-BRKFST #30 cap 11/02/22 Rx cefUROXime axetiL [Ceftin] 500 mg PO BID 7 Days #14 tab 11/02/22 Rx Allergies Allergy/AdvReac Type Severity Reaction Status Date / Time Penicillins Allergy Rash/Hives Verified 10/28/22 20:40 Physical Exam Vitals: Vital Signs Temp Pulse Pulse Resp BP BP Pulse Ox 10/29/22 11:35 97.9 F 113 H 18 100/69 93 L 10/29/22 08:20 98.2 F 115 H 18 82/61 97 10/29/22 08:00 113 H 18 10/29/22 07:15 114 H 16 97/68 10/29/22 06:10 116 H 16 84/60 10/29/22 04:48 110 H 18 92/68 10/29/22 03:41 107 H 18 88/56 10/29/22 02:07 120 H 18 98/38 10/29/22 00:00 113 H 16 80/46 95 10/28/22 23:37 121 H 18 85/52 10/28/22 22:22 114 H 16 93/55 10/28/22 21:45 121 H 16 104/77 10/28/22 21:37 134 H 18 94/77 10/28/22 20:33 128 H 17 87/66 10/28/22 19:40 130 H 18 80/39 10/28/22 18:12 98.8 F 111 H 20 133/67 96 Intake and Output 10/28/22 10/29/22 10/29/22 22:59 06:59 14:59 Intake Total 49.333 Balance 49.333 Intake: Intake, IV Titration 49.333 Amount Diltiazem 125 mg In 49.333 Sodium Chloride 0.9% 100 ml @ 5 MG/HR 5 mls/hr IV .Q24H [facility] Rx#:[id number] Other: Weight 70.76 kg 70.76 kg GENERAL DESCRIPTION: Elderly female lying in bed, no distress. No tachypnea or accessory muscle of respiration use. HEENT: Shows Pallor , no scleral icterus. Oral mucous membrane is dry. No pharyngeal erythema or thrush NECK: Trachea central, no thyromegaly. LUNGS: Unlabored breathing. Clear to auscultation anteriorly. No wheeze or crackle. HEART: S1, S2, regular rate and rhythm. No loud murmur ABDOMEN: Soft, no tenderness , guarding or rigidity, no organomegaly EXTREMITIES: No edema of feet. SKIN: No rash, no masses palpable. NEUROLOGICAL: The patient is awake, alert, oriented x3, mood and affect normal. Results CBC & Chem 7: 11/02/22 07:36 11/02/22 07:36 Labs: Abnormal Lab Results - Last 24 Hours (Table) 10/28/22 10/28/22 10/28/22 Range/Units 19:06 19:06 19:06 WBC 12.2 H (3.8-10.6) k/uL Hgb (11.4-16.0) gm/dL MCV 79.7 L (80.0-100.0) fL MCHC (31.0-37.0) g/dL Neutrophils # 11.1 H (1.3-7.7) k/uL Lymphocytes # 0.4 L (1.0-4.8) k/uL Sodium 123 L (137-145) mmol/L Potassium 3.3 L (3.5-5.1) mmol/L Chloride 91 L (98-107) mmol/L Carbon Dioxide 13 L (22-30) mmol/L BUN 60 H (7-17) mg/dL Creatinine 3.53 H (0.52-1.04) mg/dL Glucose 159 H (74-99) mg/dL Plasma Lactic Acid Pawan (0.7-2.0) mmol/L Calcium 7.6 L (8.4-10.2) mg/dL AST 102 H (14-36) U/L ALT 45 H (4-34) U/L Alkaline Phosphatase 204 H (38-126) U/L Troponin I 0.375 H* (0.000-0.034) ng/mL Total Protein 6.2 L (6.3-8.2) g/dL Albumin 3.2 L (3.5-5.0) g/dL TSH (0.465-4.680) mIU/L Urine Appearance (Clear) Urine Protein (Negative) Urine Blood (Negative) Ur Leukocyte Esterase (Negative) Urine RBC (0-5) /hpf Urine WBC (0-5) /hpf Urine WBC Clumps (None) /hpf Urine Bacteria (None) /hpf Urine Mucus (None) /hpf 10/28/22 10/28/22 10/29/22 Range/Units 20:20 20:27 10:34 WBC (3.8-10.6) k/uL Hgb 10.8 L (11.4-16.0) gm/dL MCV (80.0-100.0) fL MCHC 30.9 L (31.0-37.0) g/dL Neutrophils # 9.2 H (1.3-7.7) k/uL Lymphocytes # 0.4 L (1.0-4.8) k/uL Sodium (137-145) mmol/L Potassium (3.5-5.1) mmol/L Chloride (98-107) mmol/L Carbon Dioxide (22-30) mmol/L BUN (7-17) mg/dL Creatinine (0.52-1.04) mg/dL Glucose (74-99) mg/dL Plasma Lactic Acid Pawan 3.0 H* (0.7-2.0) mmol/L Calcium (8.4-10.2) mg/dL AST (14-36) U/L ALT (4-34) U/L Alkaline Phosphatase (38-126) U/L Troponin I (0.000-0.034) ng/mL Total Protein (6.3-8.2) g/dL Albumin (3.5-5.0) g/dL TSH (0.465-4.680) mIU/L Urine Appearance Turbid H (Clear) Urine Protein 2+ H (Negative) Urine Blood Small H (Negative) Ur Leukocyte Esterase Large H (Negative) Urine RBC 20 H (0-5) /hpf Urine WBC >182 H (0-5) /hpf Urine WBC Clumps Many H (None) /hpf Urine Bacteria Many H (None) /hpf Urine Mucus Rare H (None) /hpf 10/29/22 10/29/22 Range/Units 10:34 10:34 WBC (3.8-10.6) k/uL Hgb (11.4-16.0) gm/dL MCV (80.0-100.0) fL MCHC (31.0-37.0) g/dL Neutrophils # (1.3-7.7) k/uL Lymphocytes # (1.0-4.8) k/uL Sodium 130 L (137-145) mmol/L Potassium 3.0 L (3.5-5.1) mmol/L Chloride (98-107) mmol/L Carbon Dioxide 12 L (22-30) mmol/L BUN 58 H (7-17) mg/dL Creatinine 3.36 H (0.52-1.04) mg/dL Glucose (74-99) mg/dL Plasma Lactic Acid Pawan (0.7-2.0) mmol/L Calcium 7.0 L (8.4-10.2) mg/dL AST 82 H (14-36) U/L ALT 48 H (4-34) U/L Alkaline Phosphatase 231 H (38-126) U/L Troponin I 0.266 H* (0.000-0.034) ng/mL Total Protein 5.6 L (6.3-8.2) g/dL Albumin 2.8 L (3.5-5.0) g/dL TSH 0.401 L (0.465-4.680) mIU/L Urine Appearance (Clear) Urine Protein (Negative) Urine Blood (Negative) Ur Leukocyte Esterase (Negative) Urine RBC (0-5) /hpf Urine WBC (0-5) /hpf Urine WBC Clumps (None) /hpf Urine Bacteria (None) /hpf Urine Mucus (None) /hpf Microbiology - Last 24 Hours (Table) 10/28/22 20:20 Urine Culture - Preliminary Urine,Catheterized Assessment and Plan (1) Urinary tract infection Status: Acute Code(s): N39.0 - URINARY TRACT INFECTION, SITE NOT SPECIFIED SNOMED Code(s): 66999196 Plan: 1patient was in the hospital with generalized weakness malaise did have a urinary symptoms of burning nausea and vomiting also constipation patient noticed to have left lower abdominal wall tenderness with concern for possible diverticulitis versus left-sided pyelonephritis as the patient did have significantly positive UA 2-we will obtain CT of abdominal pelvis with oral contrast only 3-patient to continue with Rocephin while waiting for the work-up to be completed We will follow on clinical condition and cultures to further adjust medication if needed Thank you for this consultation we will follow the patient along with you Time with Patient: Greater than 30
[2022-10-30] MEDS: DEXTROSE 5% IN WATER 1,000 ML with SODIUM BICARB (1 MEQ/ML) 150 ML IV SCH ×3 (03:24→18:36)
[2022-10-30] MEDS ORDERED: ENOXAPARIN 80 MG/0.8 ML SYRINGE SQ SCH (09:00)
[2022-10-30] MEDS: IOPAMIDOL CONTRAST (ORAL USE) VIAL PO PRN ×2 (09:12→09:15)
[2022-10-30] MEDS: ATORVASTATIN 40 MG TAB PO SCH (09:13)
[2022-10-30] MEDS: VIT A,C & E-LUTEIN-MINERALS 1 EACH TAB PO SCH (09:13)
[2022-10-30] MEDS: FENOFIBRATE 160 MG TAB PO SCH (09:13)
[2022-10-30] MEDS: METOPROLOL TARTRATE 25 MG TAB PO SCH ×2 (09:13→20:04)
--- NOTE | 2022-10-30 11:16 | CT ---
EXAMINATION TYPE: CT abdomen pelvis wo con DATE OF EXAM: 10/30/2022 HISTORY: Lt sided tenderness, abn US CT DLP: 693.6 mGycm. Automated Exposure Control for Dose Reduction was Utilized. TECHNIQUE: CT scan of the abdomen and pelvis is performed with oral but without IV contrast. COMPARISON: Renal ultrasound from yesterday. FINDINGS: Within the limitations of a non-contrast study, the following observations are made. LUNG BASES: No significant abnormality is appreciated. LIVER/GB: No significant abnormality is appreciated. PANCREAS: No significant abnormality is seen. SPLEEN: No significant abnormality is seen. ADRENALS: No significant abnormality is seen. KIDNEYS: Right kidney shows central 4.2 x 3.0 cm simple appearing thin-walled cyst axial image 41 is slightly smaller lateral 2.8 cm thin-walled cyst both mid to lower pole level. There is 2.3 cm simple appearing thin-walled cyst upper pole right kidney axial image 31 not clearly seen on ultrasound. Left kidney shows simple appearing exophytic thin-walled 3.0 cm cyst with Hounsfield units averaging between 7 and 8 posteriorly upper pole left kidney corresponding to ultrasound lesion of concern. The re is a hyperdense 1.[address] axial image 33 anteriorly at upper pole level corresponds to f airly simple-appearing cyst on ultrasound. Rmoero catheter decompresses bladder. No renal calculi or hydronephrosis seen bilaterally. BOWEL: There is moderate to large size hiatal hernia with twisting of the herniated portion of stomac h. Stomach is poorly distended and thus suboptimally evaluated. Oral contrast extends to the rectum. There is no suspicious small or large bowel dilatation. There is left lateral pelvic hernia containin g fat and nondilated portion of sigmoid colon. GENITAL ORGANS: Uterus is surgically absent. Occasional scattered tiny left-sided pelvic phlebolith. LYMPH NODES: No greater than 1cm abdominal or pelvic lymph nodes are appreciated. OSSEOUS STRUCTURES: Mild to moderate disc space narrowing at T12-L1 and L1-L2 levels. Moderate joint space loss in both hips. OTHER: Small to moderate size fat-containing right inguinal hernia. IMPRESSION: 1. There is a spigelian type hernia containing nonobstructed sigmoid colon in the left pelvis lateral ly. No bowel obstruction. No acute findings are evident. 2. There are simple appearing thin-walled cysts scattered throughout both kidneys. No concerning danie d or cystic mass clearly seen on noncontrast CT.
[2022-10-30] MEDS ORDERED: TAMSULOSIN 0.4 MG CAP.ER.24H PO STA (11:40)
--- NOTE | 2022-10-30 11:41 | P.PN ---
Subjective Patient is seen in follow-up for acute kidney injury. Renal function improving. Nonoliguric. Romero catheter placed 10/29/2022 for urinary retention. On room air. Denies chest pain or shortness of breath. Off Cardizem drip. Heart rate stable. Vital signs are stable. General: No acute distress. HEENT: Head exam is unremarkable. LUNGS: No audible rhonchi or wheezes. HEART: Rate and Rhythm are regular. ABDOMEN: Nontender. EXTREMITITES: No edema. Objective - Vital Signs Vital signs: Vital Signs Temp 98.4 F 10/30/22 09:11 Pulse 95 10/30/22 09:11 Resp 18 10/30/22 09:11 BP 94/65 10/30/22 09:11 Pulse Ox 99 10/30/22 09:11 FiO2 Intake & Output 10/29/22 10/30/22 10/30/22 18:59 06:59 18:59 Intake Total 98.791 120 Output Total 750 350 Balance 98.791 -750 -230 Weight 70.76 kg Intake: Intake, IV Titration 98.791 Amount Diltiazem 125 mg In 98.791 Sodium Chloride 0.9% 100 ml @ 5 MG/HR 5 mls/hr IV .Q24H [facility] Rx#:[id number] Oral 120 Output: Urine 750 350 Other: Voiding Method Indwelling Catheter Indwelling Catheter # Bowel Movements 2 - Labs CBC & Chem 7: 10/29/22 10:34 10/30/22 09:17 Labs: Abnormal Lab Results - Last 24 Hours (Table) 10/29/22 10/29/22 10/29/22 Range/Units 10:34 10:34 10:34 Hgb 10.8 L (11.4-16.0) gm/dL MCHC 30.9 L (31.0-37.0) g/dL Neutrophils # 9.2 H (1.3-7.7) k/uL Lymphocytes # 0.4 L (1.0-4.8) k/uL Sodium 130 L (137-145) mmol/L Potassium 3.0 L (3.5-5.1) mmol/L Carbon Dioxide 12 L (22-30) mmol/L BUN 58 H (7-17) mg/dL Creatinine 3.36 H (0.52-1.04) mg/dL Calcium 7.0 L (8.4-10.2) mg/dL AST 82 H (14-36) U/L ALT 48 H (4-34) U/L Alkaline Phosphatase 231 H (38-126) U/L Troponin I 0.266 H* (0.000-0.034) ng/mL Total Protein 5.6 L (6.3-8.2) g/dL Albumin 2.8 L (3.5-5.0) g/dL TSH 0.401 L (0.465-4.680) mIU/L 10/30/22 Range/Units 09:17 Hgb (11.4-16.0) gm/dL MCHC (31.0-37.0) g/dL Neutrophils # (1.3-7.7) k/uL Lymphocytes # (1.0-4.8) k/uL Sodium (137-145) mmol/L Potassium (3.5-5.1) mmol/L Carbon Dioxide (22-30) mmol/L BUN (7-17) mg/dL Creatinine 2.64 H (0.52-1.04) mg/dL Calcium (8.4-10.2) mg/dL AST (14-36) U/L ALT (4-34) U/L Alkaline Phosphatase (38-126) U/L Troponin I (0.000-0.034) ng/mL Total Protein (6.3-8.2) g/dL Albumin (3.5-5.0) g/dL TSH (0.465-4.680) mIU/L Microbiology - Last 24 Hours (Table) 10/28/22 23:35 Blood Culture - Preliminary Blood 10/28/22 23:35 Blood Culture - Preliminary Blood 10/28/22 20:20 Urine Culture - Preliminary Urine,Catheterized Gram Neg Bacilli Assessment and Plan Plan: Assessment: 1. Acute kidney injury secondary to hemodynamic ATN and severe sepsis. Creatinine 3.53 on admission - 2.64 today. Nonoliguric. Unknown baseline renal function. No hydronephrosis noted on kidney ultrasound. CAT scan showed bilateral simple cysts. No acute findings. 2. Hypovolemic hyponatremia further worsened with the use of thiazide diuretic. Improved. 3. Metabolic acidosis secondary to lactic acidosis, acute kidney injury and IV fluids. Currently on bicarb drip. 4. A. fib with RVR status post Cardizem drip. Also on Lopressor. Cardiology following. 5. Gram-negative UTI on antibiotics. 6. Benign hypertension. Blood pressure currently in the lower side. Antihypertensives held. 7. Hypokalemia from diuretics. Magnesium normal. Replaced. 8. Urinary retention. Romero catheter placed. Plan: Maintain bicarb drip for now. Follow-up morning labs. Continue to hold antihypertensives. Check cortisol level. Add midodrine - hold for sbp >115. Add Flomax.
--- NOTE | 2022-10-30 11:59 | P.PN ---
Subjective Progress Note Date: 10/30/22 This is a 86-year-old female with a past medical history significant for hypertension and hyperlipidemia. 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 We have been asked to see the patient in consultation for atrial fibrillation with RVR. Patient examined at the bedside. Patient states she started to feel unwell on Wednesday. She reports having nausea. She reports having vomiting and diarrhea. She states that she has had generalized weakness. She states she has had no appetite and reports decreased oral intake. She denies any use of NSAIDs at home. She denied any chest pain or shortness of breath. She denied any fluttering in her chest or palpitations. Patient presented to the hospital for further evaluation. Patient was found to have urinary tract infection with sepsis, acute renal failure, hyponatremia, and atrial fibrillation with RVR. The patient denies a history of atrial fibrillation. The patient was started on therapeutic Lovenox and IV Cardizem. She remains in atrial for relation of the time of my examination with a heart rate around 110. She is hypotensive this morning with a blood pressure 82/61. * EKG reveals atrial fibrillation with RVR * Chest xray negative for acute process * Laboratory data: WBC 10.1. Hemoglobin 10.8. Platelet count 178. Sodium 123. Potassium 3.3. BUN 60. Creatinine 3.53. Lactic acid 3.0. Repeat 1.0. AST 102. ALT 45. Troponin 0.375. * Current home cardiac medications include metoprolol succinate 50 mg at night, losartan-hydrochlorothiazide 100-12.5mg daily, Lipitor 40 mg daily, and Lopid 600 mg twice a day 10/30/2022 Patient was seen and examined resting comfortably in bed. Labs this morning showed creatinine of 2.64. Echocardiogram with Doppler study showed a normal LV systolic function with mild to moderate MR. She remains on Lovenox. She's converted to sinus mechanism and IV cardizem has been stopped. Objective - Vital Signs Vital signs: Vital Signs Temp 98.4 F 10/30/22 09:11 Pulse 95 10/30/22 09:11 Resp 18 10/30/22 09:11 BP 94/65 10/30/22 09:11 Pulse Ox 99 10/30/22 09:11 FiO2 Intake & Output 10/29/22 10/30/22 10/30/22 18:59 06:59 18:59 Intake Total 98.791 120 Output Total 750 350 Balance 98.791 -750 -230 Weight 70.76 kg Intake: Intake, IV Titration 98.791 Amount Diltiazem 125 mg In 98.791 Sodium Chloride 0.9% 100 ml @ 5 MG/HR 5 mls/hr IV .Q24H [facility] Rx#:[id number] Oral 120 Output: Urine 750 350 Other: Voiding Method Indwelling Catheter Indwelling Catheter # Bowel Movements 2 - Exam GENERAL: Well-developed in no acute distress. HEENT: Head is normocephalic. Pupils are equal, round. Sclerae anicteric. Mucous membranes of the mouth are moist. Neck supple. No JVD or thyromegaly LUNGS: Respirations even and unlabored. Lungs essentially clear to auscultation bilaterally. HEART: Regular rate and rhythm. S1 and S2 heard. ABDOMEN: Soft. Nondistended. Nontender. EXTREMITIES: Normal range of motion. No clubbing or cyanosis. Peripheral pulses intact. No lower extremity edema NEUROLOGIC: Awake and alert. Oriented x 3. - Labs CBC & Chem 7: 10/29/22 10:34 10/30/22 09:17 Labs: Abnormal Lab Results - Last 24 Hours (Table) 10/29/22 10/29/22 10/30/22 Range/Units 10:34 10:34 09:17 Sodium 130 L (137-145) mmol/L Potassium 3.0 L (3.5-5.1) mmol/L Carbon Dioxide 12 L (22-30) mmol/L BUN 58 H (7-17) mg/dL Creatinine 3.36 H 2.64 H (0.52-1.04) mg/dL Calcium 7.0 L (8.4-10.2) mg/dL AST 82 H (14-36) U/L ALT 48 H (4-34) U/L Alkaline Phosphatase 231 H (38-126) U/L Troponin I 0.266 H* (0.000-0.034) ng/mL Total Protein 5.6 L (6.3-8.2) g/dL Albumin 2.8 L (3.5-5.0) g/dL TSH 0.401 L (0.465-4.680) mIU/L Microbiology - Last 24 Hours (Table) 10/28/22 23:35 Blood Culture - Preliminary Blood 10/28/22 23:35 Blood Culture - Preliminary Blood 10/28/22 20:20 Urine Culture - Preliminary Urine,Catheterized Gram Neg Bacilli Assessment and Plan Assessment: Generalized weakness Nausea and vomiting with diarrhea Urinary tract infection with sepsis Hyponatremia Lactic acidosis Acute renal failure Abnormal troponin, suspect secondary to above, no evidence of acute coronary syndrome New-onset atrial fibrillation with RVR, currently maintaining sinus mechanism Elevated LFTs Hypotension History of hypertension Hyperlipidemia Plan: From Cardiology's perspective we will switch to Eliquis 2.5 mg BID. Continue to monitor renal function. Continue to hold ARB for now. Continue telemetry. We will continue to follow the patient and provide further recommendations accordingly. 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 Patient was seen and examined.
[2022-10-30] MEDS: MIDODRINE 5 MG TAB PO SCH ×2 (13:14→17:35)
--- NOTE | 2022-10-30 13:18 | P.PN ---
Subjective Progress Note Date: 10/30/22 Principal diagnosis: Urinary tract infection Patient is a 78-year-old female with a past medical history significant for hypertension and history of recurrent UTI presented to hospital for evaluation of generalized weakness malaise nausea did have an episode of vomiting patient did have positive concerning for UTI she was also tender left lower quadrant area for a CT was done did show hernia but no evidence of any obstruction or colitis On today's evaluation that is 10/30/2022, the patient denies having any fever or any chills, the patient is breathing comfortably, patient apparently further nausea vomiting abdominal pain has improved has been complaining of some diarrhea no blood or mucus in the stool Objective - Vital Signs Vital signs: Vital Signs Temp 98.4 F 10/30/22 09:11 Pulse 95 10/30/22 09:11 Resp 18 10/30/22 09:11 BP 94/65 10/30/22 09:11 Pulse Ox 99 10/30/22 09:11 FiO2 Intake & Output 10/29/22 10/30/22 10/30/22 18:59 06:59 18:59 Intake Total 98.791 120 Output Total 750 350 Balance 98.791 -750 -230 Weight 70.76 kg Intake: Intake, IV Titration 98.791 Amount Diltiazem 125 mg In 98.791 Sodium Chloride 0.9% 100 ml @ 5 MG/HR 5 mls/hr IV .Q24H [facility] Rx#:[id number] Oral 120 Output: Urine 750 350 Other: Voiding Method Indwelling Catheter Indwelling Catheter # Bowel Movements 2 - Exam GENERAL DESCRIPTION: An elderly female lying in bed in no distress RESPIRATORY SYSTEM: Unlabored breathing , decreased breath sounds at bases HEART: S1 S2 regular rate and rhythm , ABDOMEN: Soft , no tenderness EXTREMITIES: No edema feet - Labs CBC & Chem 7: 10/29/22 10:34 10/30/22 09:17 Labs: Abnormal Lab Results - Last 24 Hours (Table) 10/29/22 10/29/22 10/29/22 Range/Units 10:34 10:34 10:34 Hgb 10.8 L (11.4-16.0) gm/dL MCHC 30.9 L (31.0-37.0) g/dL Neutrophils # 9.2 H (1.3-7.7) k/uL Lymphocytes # 0.4 L (1.0-4.8) k/uL Sodium 130 L (137-145) mmol/L Potassium 3.0 L (3.5-5.1) mmol/L Carbon Dioxide 12 L (22-30) mmol/L BUN 58 H (7-17) mg/dL Creatinine 3.36 H (0.52-1.04) mg/dL Calcium 7.0 L (8.4-10.2) mg/dL AST 82 H (14-36) U/L ALT 48 H (4-34) U/L Alkaline Phosphatase 231 H (38-126) U/L Troponin I 0.266 H* (0.000-0.034) ng/mL Total Protein 5.6 L (6.3-8.2) g/dL Albumin 2.8 L (3.5-5.0) g/dL TSH 0.401 L (0.465-4.680) mIU/L Microbiology - Last 24 Hours (Table) 10/28/22 23:35 Blood Culture - Preliminary Blood 10/28/22 23:35 Blood Culture - Preliminary Blood 10/28/22 20:20 Urine Culture - Preliminary Urine,Catheterized Gram Neg Bacilli Assessment and Plan (1) Urinary tract infection Current Visit: Yes Status: Acute Code(s): N39.0 - URINARY TRACT INFECTION, SITE NOT SPECIFIED SNOMED Code(s): 81042936 Plan: 1patient was in the hospital with generalized weakness malaise did have a urinary symptoms of burning nausea and vomiting also constipation patient noticed to have left lower abdominal wall tenderness with concern for possible diverticulitis versus left-sided pyelonephritis as the patient did have significantly positive UA 2-CT of abdominal pelvis with oral contrast only did show hernia but no o bstruction or colitis 3-patient to continue with Rocephin while waiting for cultures to finalize and monitor clinical course closely Time with Patient: Less than 30
[2022-10-30 14:56] LABS: Calcium 6.9 mg/dL (8.4-10.2); Potassium 2.9 mmol/L (3.5-5.1)
--- NOTE | 2022-10-30 15:26 | CDI ---
Documentation Clarification Form Date: 10/30/2022 2:58:22 PM From: Rupa Franks RN, CCDS Admit Date: 10/28/2022 11:28:00 PM Patient Name: Maia Patiño Visit Number: [id number] Discharge Date: ATTENTION: The Clinical Documentation Specialists (CDI) and [facility] Coding Staff appreciate your assistance in clarifying documentation. Please respond to the clarification below the line at the bottom and electronically sign. The CDI & [facility] Coding staff will review the response and follow-up if needed. Please note: Queries are made part of the Legal Health Record. If you have any questions, please contact the author of this message via ITS. Dr. Gregory Aleman Sepsis is documented in the ED assessment, Cardiology consult and Nephrology. Based on this information and the findings below, is there an additional diagnosis that is clinically appropriate for this patient? 10/29 ID Consult: concern for possible diverticulitis versus left-sided pyelonephritis as the patient did have significantly positive UA History/Risk Factors: Hypertension, Angina Bladder infection Clinical Indicators: 86-year-old female who present for evaluation of nausea/vomiting/diarrhea. 10/28 VS 133/67 111 20 98.8 96 % RA 10/28 Labs: WBC 12.2, Neutrophils 11.1 10/29 WBC 10.1 10/28 Lactic acid: 3.0 10/28 Blood cultures: Pending 10/28 Urine Culture: Gram Neg Bacilli Treatment: Rocephin 2 Gm IVPB Q 24 HRS Vancomycin HCL 1,250 mg IVPB X2 10/28 -10/29 .9NS 500 ML Bolus x3 10/28 Is there an additional diagnosis that is clinically appropriate for this patient? [ ] Sepsis, present on admission [ + ] Sepsis ruled out [ ] Other, please specify [ ] Unable to determine SIRS Criteria: 2 or more of the following may indicate SIRS Temperature < 96.8F (36C) or > 101.0F (38.3C) Heart Rate > 90 bpm Respiratory Rate > 20 breaths/min or PaCO2 < 32 mmHg White Blood Cell Count > 12,000 or < 4,000 cells/mm3 or > 10% bands (Template Last Reviewed: July 2022) MTDD
--- NOTE | 2022-10-30 16:01 | P.PN ---
Progress Note - Text Progress Note Date: 10/30/22 Chief Complaint: Weak and tired This is a pleasant 86-year-old patient who follows with Dr. Ortiz. Chronic stable medical conditions include hypertension, hyperlipidemia, arthritis. Patient is normally able to get around. About 2 weeks ago she was diagnosed a UTI. Received antibiotics. About 5 days ago patient started having nausea vomiting and diarrhea that progressed. By time yesterday finding it difficult to get out of bed and not able to keep much down weak and tired. She is having 2-3 bowel movements a day. Watery. No blood. Totally exhausted. In the ER she was found to be in atrial fibrillation with rapid ventricular rate. Was put on a Cardizem drip. Subcu Lovenox This morning laying in bed. Tired. On a soft diet. Other family members are present. No fever no chills October 30: Patient had 2 bowel movements overnight. Does feel a bit better. Color looking better. Daughter the bedside. Diet advanced. Computed tomography scan abdomen does done today nonspecific. She converted to sinus. IV Cardizem was discontinued. Blood pressure low this morning. On sodium bicarbonate drip. Active Medications Acetaminophen (Acetaminophen Tab 325 Mg Tab) 650 mg PO Q6HR PRN PRN Reason: Mild Pain or Fever > 100.5 Apixaban (Apixaban 2.5 Mg Tablet) 2.5 mg PO BID [facility]; Protocol Atorvastatin Calcium (Atorvastatin 40 Mg Tab) 40 mg PO DAILY [facility] Last Admin: 10/30/22 09:13 Dose: 40 mg Fenofibrate (Fenofibrate 160 Mg Tab) 160 mg PO DAILY [facility] Last Admin: 10/30/22 09:13 Dose: 160 mg Sodium Bicarbonate 150 ml/ (Dextrose/Water) 1,150 mls @ 125 mls/hr IV .Q9H12M [facility] Last Admin: 10/30/22 03:24 Dose: 125 mls/hr Ceftriaxone Sodium 2 gm/ (Sodium Chloride) 50 mls @ 100 mls/hr IVPB Q24H [facility] Last Admin: 10/29/22 20:37 Dose: 100 mls/hr Lorazepam (Lorazepam 0.5 Mg Tab) 0.5 mg PO Q6HR PRN PRN Reason: Anxiety Melatonin (Melatonin 3 Mg Tablet) 3 mg PO HS PRN PRN Reason: Insomnia Metoprolol Tartrate (Metoprolol Tartrate 25 Mg Tab) 25 mg PO BID [facility] Last Admin: 10/30/22 09:13 Dose: 25 mg Midodrine (Midodrine 5 Mg Tab) 5 mg PO AC-BID [facility] Last Admin: 10/30/22 13:14 Dose: 5 mg Miscellaneous Information (Potassium Replacement Protocol 1 Each Misc) 1 each MISCELLANE DAILY PRN; Protocol PRN Reason: Per Protocol Multivitamins/Minerals (Vit A,C & F-Pfslew-Cdfdmhzv 1 Each Tab) 1 each PO DAILY [facility] Last Admin: 10/30/22 09:13 Dose: 1 each Ondansetron HCl (Ondansetron Odt 4 Mg Tab) 4 mg PO Q8HR PRN PRN Reason: Nausea Ondansetron HCl (Ondansetron 4 Mg/2 Ml Vial) 4 mg IVP Q8HR PRN PRN Reason: Nausea And Vomiting Potassium Chloride (Potassium Chloride Er 20 Meq Tab.Er) 20 meq PO Q1HR [facility]; Protocol Stop: 10/30/22 18:01 Past medical history to include: Hypertension, hyperlipidemia Social history: Lives alone. No smoking. No alcohol. Physical examination: VITAL SIGNS: 97.6, 86, 16, 107/65, 99% room air GENERAL: BMI 28.5, up in a chair, breathing a bit better EYES: Pupils equal. Conjunctiva normal. HEENT: External appearance of nose and ears normal, oral cavity grossly normal. NECK: JVD not raised; masses not palpable. HEART: Heart sounds irregular; no edema. LUNGS: Respiratory rate normal; clear to auscultation. ABDOMEN: Soft, nontender, liver spleen not palpable, no masses palpable. PSYCH: [Alert and oriented x3; mood and affect tired MUSCULOSKELETAL:No Clubbing/cyanosis;muscles-grossly intact, OA INVESTIGATIONS, reviewed in the clinical context: Renal ultrasound: Nonspecific 2-D echocardiogram: EF 55%. [id number] MR. CT abdomen pelvis: Sclerae GEN hernia left pelvis. Thinwall cyst both the kidneys October 30: Sodium 132 potassium 2.9 BUN 59 creatinine 2.65 October 29: White count 10.1 hemoglobin 10.8 platelets 178 sodium 1:30 potassium 3 BUN 58 creatinine 3.36 bicarb 12 October 28: Hemoglobin 11.6 sodium 123 potassium 3.3 BUN 60 creatinine 3.53 Troponin I 0.375, 0.266 JSD 82 ALT 48 TSH 0.401 free T4 1 0.4 to UA negative for nitrite Influenza type A, B, RSV, COVID-19: Not detected EKG tracing personally reviewed by me-atrial fibrillation rate 130s Chest x-ray film personally reviewed by me-no infiltrates Assessment and plan: -Paroxysmal atrial fibrillation with a rapid ventricular rate, non-sinus rhythm IV Cardizem drip discontinued. Lovenox changed over to eliquis -Acute kidney injury combination of prerenal, ATN: Slow to respond IV sodium bicarbonate drip -Acute metabolic acidosis from renal failure: Slow to respond Sodium bicarbonate drip -Essential hypertension Lopressor 25 mg twice a day -Hypotension from A. fib with rapid ventricular rate increased acute kidney injury and present presentation IV fluids Hyperlipidemia Lopid, Lipitor -Possibly antibiotic associated diarrhea IV fluids. Diet has been advanced. Add Metamucil -DO NOT RESUSCITATE Care was discussed with the patient and daughter the bedside. IV Cardizem and subcu Lovenox discontinued. Started on eliquis. Add Metamucil. Continue sodium bicarbonate drip.
[2022-10-30] MEDS: POTASSIUM CHLORIDE ER 20 MEQ TAB.ER PO SCH (17:35)
[2022-10-30 18:42] LABS: Calcium 6.7 mg/dL (8.4-10.2); Magnesium 1.8 mg/dL (1.6-2.3); Potassium 3.1 mmol/L (3.5-5.1)
[2022-10-30] MEDS: APIXABAN 2.5 MG TABLET PO SCH (20:04)
[2022-10-30] MEDS: PSYLLIUM HUSK 100% 6 GM PACKET PO SCH (20:05)
[2022-10-31] MEDS: DEXTROSE 5% IN WATER 1,000 ML with SODIUM BICARB (1 MEQ/ML) 150 ML IV SCH (02:54)
[2022-10-31] MEDS: MIDODRINE 5 MG TAB PO SCH ×2 (06:26→16:51)
[2022-10-31] MEDS: METOPROLOL TARTRATE 25 MG TAB PO SCH ×2 (08:36→20:29)
[2022-10-31] MEDS: ATORVASTATIN 40 MG TAB PO SCH (08:36)
[2022-10-31] MEDS: VIT A,C & E-LUTEIN-MINERALS 1 EACH TAB PO SCH (08:36)
[2022-10-31] MEDS: APIXABAN 2.5 MG TABLET PO SCH ×2 (08:36→20:29)
[2022-10-31] MEDS: FENOFIBRATE 160 MG TAB PO SCH (08:36)
[2022-10-31] MEDS: PSYLLIUM HUSK 100% 6 GM PACKET PO SCH (08:36)
[2022-10-31 09:34] LABS: Calcium 6.7 mg/dL (8.4-10.2)
[2022-10-31 09:35] LABS: Potassium 2.7 mmol/L (3.5-5.1)
[2022-10-31] MEDS ORDERED: SODIUM CHLORIDE TAB 1 GM TAB PO STA (11:12)
--- NOTE | 2022-10-31 11:13 | P.PN ---
Subjective Patient is seen in follow-up for acute kidney injury. Renal function improving. Nonoliguric. Romero catheter placed 10/29/2022 for urinary retention. On room air. Denies chest pain or shortness of breath. Off Cardizem drip. Heart rate stable. Daughter present at bedside. Vital signs are stable. General: No acute distress. HEENT: Head exam is unremarkable. LUNGS: No audible rhonchi or wheezes. HEART: Rate and Rhythm are regular. ABDOMEN: Nontender. EXTREMITITES: No edema. Objective - Vital Signs Vital signs: Vital Signs Temp 97.7 F 10/31/22 08:30 Pulse 80 10/31/22 08:30 Resp 16 10/31/22 08:30 BP 110/68 10/31/22 08:30 Pulse Ox 96 10/31/22 08:30 FiO2 Intake & Output 10/30/22 10/31/22 10/31/22 18:59 06:59 18:59 Intake Total 120 318 0 Output Total 825 550 700 Balance -353 -968 -102 Intake: Oral 120 318 0 Output: Urine 825 550 700 Other: Voiding Method Indwelling Catheter Indwelling Catheter Indwelling Catheter # Bowel Movements 2 - Labs CBC & Chem 7: 10/29/22 10:34 10/31/22 08:59 Labs: Abnormal Lab Results - Last 24 Hours (Table) 10/30/22 10/30/22 10/31/22 Range/Units 09:17 17:56 08:59 Sodium 132 L 127 L 127 L (137-145) mmol/L Potassium 2.9 L 3.1 L 2.7 L* (3.5-5.1) mmol/L Chloride 90 L 90 L (98-107) mmol/L Carbon Dioxide 15 L 21 L (22-30) mmol/L BUN 59 H 54 H 46 H (7-17) mg/dL Creatinine 2.65 H 2.12 H 1.62 H (0.52-1.04) mg/dL Glucose 159 H 115 H 152 H (74-99) mg/dL Calcium 6.9 L 6.7 L 6.7 L (8.4-10.2) mg/dL Microbiology - Last 24 Hours (Table) 10/28/22 23:35 Blood Culture - Preliminary Blood 10/28/22 23:35 Blood Culture - Preliminary Blood 10/28/22 20:20 Urine Culture - Preliminary Urine,Catheterized Gram Neg Bacilli Assessment and Plan Plan: Assessment: 1. Acute kidney injury secondary to hemodynamic ATN and severe sepsis. Creatin ine 3.53 on admission - 1.62 today. Nonoliguric. Unknown baseline renal function. No hydronephrosis noted on kidney ultrasound. CAT scan showed bilateral simple cysts. No acute findings. 2. Hypovolemic hyponatremia further worsened with the use of thiazide diuretic. Sodium level is stable at 127 today. 3. Metabolic acidosis secondary to lactic acidosis, acute kidney injury and IV fluids. Currently on bicarb drip. 4. A. fib with RVR status post Cardizem drip. On Lopressor. Cardiology following. 5. Gram-negative UTI on antibiotics. 6. Benign hypertension. Stable. 7. Hypokalemia from diuretics and intracellular shifting from IV bicarb. Magnesium normal. 8. Urinary retention. Romero catheter placed. Flomax discontinued. Unclear why. 9. Mild to moderate mitral regurgitation. Plan: Hep-Lock IV fluids. Replace potassium and recheck this afternoon and continue to replace as needed. Cortisol level now. Maintain midodrine - hold for sbp >115. Trial avoid tomorrow. Encouraged oral intake. 1200 mL fluid restriction. Sodium chloride tab once today.
[2022-10-31] MEDS: POTASSIUM CHLORIDE ER 20 MEQ TAB.ER PO SCH ×5 (12:15→19:00)
[2022-10-31] MEDS ORDERED: POTASSIUM CHLORIDE ER 20 MEQ TAB.ER PO ONE (15:00)
--- NOTE | 2022-10-31 15:36 | P.PN ---
Subjective Progress Note Date: 10/31/22 This is a 86-year-old female with a past medical history significant for hypertension and hyperlipidemia. Patient does not follow with a programming specialist. We have been asked to see the patient in consultation for atrial fibrillation with RVR. Patient examined at the bedside. Patient states she started to feel unwell on Wednesday. She reports having nausea. She reports having vomiting and diarrhea. She states that she has had generalized weakness. She states she has had no appetite and reports decreased oral intake. She denies any use of NSAIDs at home. She denied any chest pain or shortness of breath. She denied any fluttering in her chest or palpitations. Patient presented to the hospital for further evaluation. Patient was found to have urinary tract infection with sepsis, acute renal failure, hyponatremia, and atrial fibrillation with RVR. The patient denies a history of atrial fibrillation. The patient was started on therapeutic Lovenox and IV Cardizem. She remains in atrial for relation of the time of my examination with a heart rate around 110. She is hypotensive this morning with a blood pressure 82/61. * EKG reveals atrial fibrillation with RVR * Chest xray negative for acute process * Laboratory data: WBC 10.1. Hemoglobin 10.8. Platelet count 178. Sodium 123. Potassium 3.3. BUN 60. Creatinine 3.53. Lactic acid 3.0. Repeat 1.0. AST 102. ALT 45. Troponin 0.375. * Current home cardiac medications include metoprolol succinate 50 mg at night, losartan-hydrochlorothiazide 100-12.5mg daily, Lipitor 40 mg daily, and Lopid 600 mg twice a day 10/30/2022 Patient was seen and examined resting comfortably in bed. Labs this morning showed creatinine of 2.64. Echocardiogram with Doppler study showed a normal LV systolic function with mild to moderate MR. She remains on Lovenox. She's converted to sinus mechanism and IV cardizem has been stopped. 10/31/2022 Patient is overall feeling about the same. She continues to complain of nausea. Potassium is low, being replaced by nephrology. Objective - Vital Signs Vital signs: Vital Signs Temp 98.0 F 10/31/22 11:40 Pulse 65 10/31/22 11:40 Resp 16 10/31/22 11:40 BP 112/73 10/31/22 11:40 Pulse Ox 97 10/31/22 11:40 FiO2 Intake & Output 10/30/22 10/31/22 10/31/22 18:59 06:59 18:59 Intake Total 120 318 0 Output Total 286 055 3697 Balance -367 -319 -1252 Intake: Oral 120 318 0 Output: Urine 355 792 2123 Other: Voiding Method Indwelling Catheter Indwelling Catheter Indwelling Catheter # Bowel Movements 2 - Exam GENERAL: Well-developed in no acute distress. HEENT: Head is normocephalic. Pupils are equal, round. Sclerae anicteric. Mucous membranes of the mouth are moist. Neck supple. No JVD or thyromegaly LUNGS: Respirations even and unlabored. Lungs essentially clear to auscultation bilaterally. HEART: Regular rate and rhythm. S1 and S2 heard. ABDOMEN: Soft. Nondistended. Nontender. EXTREMITIES: Normal range of motion. No clubbing or cyanosis. Peripheral pulses intact. No lower extremity edema NEUROLOGIC: Awake and alert. Oriented x 3. - Labs CBC & Chem 7: 10/29/22 10:34 10/31/22 08:59 Labs: Abnormal Lab Results - Last 24 Hours (Table) 10/30/22 10/31/22 Range/Units 17:56 08:59 Sodium 127 L 127 L (137-145) mmol/L Potassium 3.1 L 2.7 L* (3.5-5.1) mmol/L Chloride 90 L 90 L (98-107) mmol/L Carbon Dioxide 21 L (22-30) mmol/L BUN 54 H 46 H (7-17) mg/dL Creatinine 2.12 H 1.62 H (0.52-1.04) mg/dL Glucose 115 H 152 H (74-99) mg/dL Calcium 6.7 L 6.7 L (8.4-10.2) mg/dL Microbiology - Last 24 Hours (Table) 10/28/22 23:35 Blood Culture - Preliminary Blood 10/28/22 23:35 Blood Culture - Preliminary Blood Assessment and Plan Assessment: Generalized weakness Nausea and vomiting with diarrhea Urinary tract infection with sepsis Hyponatremia Lactic acidosis Acute renal failure Abnormal troponin, suspect secondary to above, no evidence of acute coronary syndrome New-onset atrial fibrillation with RVR, currently maintaining sinus mechanism Elevated LFTs Hypotension History of hypertension Hyperlipidemia Plan: From Cardiology's perspective medications were reviewed and will continue the same. Continue to monitor renal function and adjust Eliquis dose if needed. Continue to hold ARB for now. Continue telemetry. We will continue to follow the patient and provide further recommendations accordingly. [employer] note has been reviewed, I agree with a documented findings and plan of care. Patient was seen and examined.
[2022-10-31] MEDS ORDERED: ONDANSETRON 4 MG/2 ML VIAL IVP PRN (16:50)
[2022-10-31] MEDS ORDERED: DEXTROSE 50% SYRINGE 50 ML IVP PRN ×2 (16:51)
--- NOTE | 2022-10-31 17:03 | P.PN ---
Subjective Progress Note Date: 10/31/22 This is a pleasant 86-year-old patient who follows with Dr. Ortiz. Chronic stable medical conditions include hypertension, hyperlipidemia, arthritis. Patient is normally able to get around. About 2 weeks ago she was diagnosed a UTI. Received antibiotics. About 5 days ago patient started having nausea v omiting and diarrhea that progressed. By time yesterday finding it difficult to get out of bed and not able to keep much down weak and tired. She is having 2-3 bowel movements a day. Watery. No blood. Totally exhausted. In the ER she was found to be in atrial fibrillation with rapid ventricular rate. Was put on a Cardizem drip. Subcu Lovenox This morning laying in bed. Tired. On a soft diet. Other family members are present. No fever no chills October 30: Patient had 2 bowel movements overnight. Does feel a bit better. Color looking better. Daughter the bedside. Diet advanced. Computed tomography scan abdomen does done today nonspecific. She converted to sinus. IV Cardizem was discontinued. Blood pressure low this morning. On sodium bicarbonate drip. 10/31/2022 Patient is evaluated today resting in bed. Complaints of nausea and had an episode of vomiting today. No coffee ground or black emesis. Denies any further episodes of diarrhea actually reports feeling constipated. Has bowel sounds and soft abdomen. Likely medication effect causing the nausea. Urine culture has completed showing E. Coli with drug resistance and she remains on IV ceftriaxone. Sodium is 127 today, potassium 2.7, BUN 46, creatinine 1.62. Patient is on midodrine. Bicarb gtt is off. Patient is started on fluid restriction 1200 ml. Review of Systems Constitutional: Denied any fatigue denied any fever. Cardio vascular: denied any chest pain, palpitations Gastrointestinal: denied any nausea, vomiting, diarrhea Pulmonary: Denied any shortness of breath cough Neurologic denied any new focal deficits All inpatient medications were reviewed and appropriate changes in these medications as dictated in the interval history and assessment and plan. Assessment and Plan Assessment -Acute urinary tract infection and sepsis present on admission -Nausea and vomiting likely medication related -Hyponatremia, Hypovolemic on admission -Urinary retention currently with indwelling cheng catheter -Paroxysmal atrial fibrillation with a rapid ventricular rate now in normal sinus rhythm -Acute kidney injury combination of prerenal and acute tubular necrosis -Essential hypertension with hypotension on admission -Hyperlipidemia -Possibly antibiotic associated diarrhea check C.Dif GI prophylaxis DVT prophylaxis on eliquis Do Not Resuscitate/Do Not Intubate Plan IV sodium bicarbonate discontinued Continue IV ceftriaxone antibiotics per ID Replace potassium and repeat this afternoon Continue 1200 CC fluid restriction AM labs Continue IDC possible voiding trial tomorrow Home on discharge The impression and plan of care has been dictated by Juliana Braun, Nurse Practitioner as directed. Dr. Tessa MD I have performed a history and physical examination and medical decision making of this patient, discussed the same with the dictator, and agree with the dic tators assessment and plan as written, documented as a scribe. Based on total visit time, I have performed more than 50% of this visit. Objective - Vital Signs Vital signs: Vital Signs Temp 97.9 F 10/31/22 15:20 Pulse 71 10/31/22 15:20 Resp 16 10/31/22 15:20 BP 127/73 10/31/22 15:20 Pulse Ox 96 10/31/22 15:20 FiO2 Intake & Output 10/30/22 10/31/22 10/31/22 18:59 06:59 18:59 Intake Total 120 318 0 Output Total 010 131 9052 Balance -516 -283 -9278 Intake: Oral 120 318 0 Output: Urine 118 057 3097 Other: Voiding Method Indwelling Catheter Indwelling Catheter Indwelling Catheter # Bowel Movements 2 - Labs CBC & Chem 7: 10/29/22 10:34 10/31/22 08:59 Labs: Abnormal Lab Results - Last 24 Hours (Table) 10/30/22 10/31/22 Range/Units 17:56 08:59 Sodium 127 L 127 L (137-145) mmol/L Potassium 3.1 L 2.7 L* (3.5-5.1) mmol/L Chloride 90 L 90 L (98-107) mmol/L Carbon Dioxide 21 L (22-30) mmol/L BUN 54 H 46 H (7-17) mg/dL Creatinine 2.12 H 1.62 H (0.52-1.04) mg/dL Glucose 115 H 152 H (74-99) mg/dL Calcium 6.7 L 6.7 L (8.4-10.2) mg/dL Microbiology - Last 24 Hours (Table) 10/28/22 20:20 Urine Culture - Final Urine,Catheterized Escherichia coli 04/19/23 23:35 Blood Culture - Preliminary Blood 10/28/22 23:35 Blood Culture - Preliminary Blood Assessment and Plan Time with Patient: Less than 30
[2022-10-31 17:09] LABS: Glucose,Whole Blood 102 mg/dL (70-110)
[2022-10-31] MEDS: INSULIN ASPART (NovoLOG) 100 UNIT/ML VIAL SQ SCH ×2 (17:20→20:19)
[2022-10-31 20:19] LABS: Glucose,Whole Blood 106 mg/dL (70-110)
[2022-10-31] MEDS: PANTOPRAZOLE 40 MG/10 ML VIAL IVP SCH (20:30)
--- NOTE | 2022-10-31 22:28 | P.PN ---
Subjective Progress Note Date: 10/31/22 Principal diagnosis: Urinary tract infection Patient is a 78-year-old female with a past medical history significant for hypertension and history of recurrent UTI presented to hospital for evaluation of generalized weakness malaise nausea did have an episode of vomiting patient did have positive concerning for UTI she was also tender left lower quadrant area for a CT was done did show hernia but no evidence of any obstruction or colitis On today's evaluation that is 10/31/2022, the patient remains to be afebrile, the patient is breathing comfortably on room air, patient denies further nausea vomiting abdominal pain has improved and diarrhea has resolved Objective - Vital Signs Vital signs: Vital Signs Temp 98.2 F 10/31/22 04:00 Pulse 73 10/31/22 04:00 Resp 18 10/31/22 01:37 BP 113/70 10/31/22 06:22 Pulse Ox 99 10/31/22 04:00 FiO2 Intake & Output 10/30/22 10/31/22 10/31/22 18:59 06:59 18:59 Intake Total 120 318 0 Output Total 825 550 700 Balance -430 -284 -700 Intake: Oral 120 318 0 Output: Urine 825 550 700 Other: Voiding Method Indwelling Catheter Indwelling Catheter # Bowel Movements 2 - Exam GENERAL DESCRIPTION: An elderly female lying in bed in no distress RESPIRATORY SYSTEM: Unlabored breathing , decreased breath sounds at bases HEART: S1 S2 regular rate and rhythm , ABDOMEN: Soft , no tenderness EXTREMITIES: No edema feet - Labs CBC & Chem 7: 10/29/22 10:34 10/31/22 20:39 Labs: Abnormal Lab Results - Last 24 Hours (Table) 10/30/22 10/30/22 10/30/22 Range/Units 09:17 09:17 17:56 Sodium 132 L 127 L (137-145) mmol/L Potassium 2.9 L 3.1 L (3.5-5.1) mmol/L Chloride 90 L (98-107) mmol/L Carbon Dioxide 15 L 21 L (22-30) mmol/L BUN 59 H 54 H (7-17) mg/dL Creatinine 2.64 H 2.65 H 2.12 H (0.52-1.04) mg/dL Glucose 159 H 115 H (74-99) mg/dL Calcium 6.9 L 6.7 L (8.4-10.2) mg/dL Microbiology - Last 24 Hours (Table) 10/28/22 23:35 Blood Culture - Preliminary Blood 10/28/22 23:35 Blood Culture - Preliminary Blood 10/28/22 20:20 Urine Culture - Preliminary Urine,Catheterized Gram Neg Bacilli Assessment and Plan (1) Urinary tract infection Current Visit: Yes Status: Acute Code(s): N39.0 - URINARY TRACT INFECTION, SITE NOT SPECIFIED SNOMED Code(s): 89342194 Plan: 1patient was in the hospital with generalized weakness malaise did have a urinary symptoms of burning nausea and vomiting also constipation patient noticed to have left lower abdominal wall tenderness with concern for possible diverticulitis versus left-sided pyelonephritis as the patient did have significantly positive UA 2-CT of abdominal pelvis with oral contrast only did show hernia but no obstruction or colitis 3-patient has shown some clinical improvement and will continue with Rocephin while waiting for cultures to finalize and continue supportive care Time with Patient: Less than 30
[2022-11-01 06:14] LABS: Glucose,Whole Blood 87 mg/dL (70-110)
[2022-11-01] MEDS: INSULIN ASPART (NovoLOG) 100 UNIT/ML VIAL SQ SCH ×4 (06:15→21:22)
[2022-11-01] MEDS: MIDODRINE 5 MG TAB PO SCH ×2 (06:28→16:15)
[2022-11-01 08:28] LABS: Basophils % (A) 0 %; Eosinophils # (A) 0.2 k/uL (0-0.7); Eosinophils % (A) 2 %; HCT 33.1 % (34.0-46.0); HGB 10.2 gm/dL (11.4-16.0); Lymphocytes # (A) 1.2 k/uL (1.0-4.8); Lymphocytes % (A) 8 %; MCH 25.5 pg (25.0-35.0); MCV 82.4 fL (80.0-100.0); Mean Platelet Volume 8.7; Monocytes # (A) 0.4 k/uL (0-1.0); Monocytes % (A) 3 %; Neutrophils # (A) 11.7 k/uL (1.3-7.7); Neutrophils % (A) 84 %; Platelet Count 238 k/uL (150-450); RBC 4.01 m/uL (3.80-5.40); RDW 15.8 % (11.5-15.5); WBC 13.9 k/uL (3.8-10.6)
[2022-11-01 08:48] LABS: Albumin 2.7 g/dL (3.5-5.0); Calcium 7.9 mg/dL (8.4-10.2); Magnesium 1.9 mg/dL (1.6-2.3); Potassium 4.3 mmol/L (3.5-5.1); Total Bilirubin 0.4 mg/dL (0.2-1.3); Total Protein 5.4 g/dL (6.3-8.2)
--- NOTE | 2022-11-01 09:56 | P.PN ---
Subjective Patient is seen in follow-up for acute kidney injury. Renal function improving. Nonoliguric. Romero catheter placed 10/29/2022 for urinary retention. On room air. Denies chest pain or shortness of breath. Oral intake good. Off Cardizem drip and IV fluids. Heart rate stable. Daughter present at bedside. Vital signs are stable. General: No acute distress. HEENT: Head exam is unremarkable. LUNGS: No audible rhonchi or wheezes. HEART: Rate and Rhythm are regular. ABDOMEN: Nontender. EXTREMITITES: No edema. Objective - Vital Signs Vital signs: Vital Signs Temp 97.9 F 11/01/22 08:15 Pulse 74 11/01/22 08:15 Resp 16 11/01/22 08:15 BP 111/74 11/01/22 08:15 Pulse Ox 93 L 11/01/22 09:05 FiO2 Intake & Output 10/31/22 11/01/22 11/01/22 18:59 06:59 18:59 Intake Total 120 0 Output Total 1250 1700 0 Balance -1130 -1700 0 Intake: Oral 120 0 Output: Gastric Drainage 0 Urine 1250 1700 Stool 0 0 Urine/Stool Mix 0 Emesis 0 Oral Regurgitation 0 Other 0 Other: Voiding Method Indwelling Catheter Indwelling Catheter Indwelling Catheter # Voids 0 # Bowel Movements 0 - Labs CBC & Chem 7: 11/01/22 07:47 11/01/22 07:47 Labs: Abnormal Lab Results - Last 24 Hours (Table) 10/31/22 11/01/22 11/01/22 Range/Units 16:52 07:47 07:47 WBC 13.9 H (3.8-10.6) k/uL Hgb 10.2 L (11.4-16.0) gm/dL Hct 33.1 L (34.0-46.0) % RDW 15.8 H (11.5-15.5) % Neutrophils # 11.7 H (1.3-7.7) k/uL Sodium 130 L (137-145) mmol/L Potassium 3.2 L (3.5-5.1) mmol/L Chloride 97 L (98-107) mmol/L BUN 39 H (7-17) mg/dL Creatinine 1.33 H (0.52-1.04) mg/dL Calcium 7.9 L (8.4-10.2) mg/dL AST 78 H (14-36) U/L ALT 45 H (4-34) U/L Alkaline Phosphatase 209 H (38-126) U/L Total Protein 5.4 L (6.3-8.2) g/dL Albumin 2.7 L (3.5-5.0) g/dL Microbiology - Last 24 Hours (Table) 10/28/22 20:20 Urine Culture - Final Urine,Catheterized Escherichia coli 10/28/22 23:35 Blood Culture - Preliminary Blood 10/28/22 23:35 Blood Culture - Preliminary Blood Assessment and Plan Plan: Assessment: 1. Acute kidney injury secondary to hemodynamic ATN and severe sepsis. Creatinine 3.53 on admission - 1.33 today. Nonoliguric. Unknown baseline renal function. No hydronephrosis noted on kidney ultrasound. CAT scan showed bilateral simple cysts. No acute findings. 2. Hypovolemic hyponatremia further worsened with the use of thiazide diuretic. Sodium level improved to 130 today. 3. Metabolic acidosis secondary to lactic acidosis, acute kidney injury and IV fluids. Status post bicarb drip. Improved. 4. A. fib with RVR status post Cardizem drip. On Lopressor. Cardiology following. 5. E. coli UTI on antibiotics. 6. Benign hypertension. Stable. 7. Hypokalemia from diuretics and intracellular shifting from IV bicarb. Magnesium normal. Replaced. Improved. 8. Urinary retention. Romero catheter placed. On Flomax. 9. Mild to moderate mitral regurgitation. Plan: Hep-Lock IV fluids. Cortisol level not low. Maintain midodrine - hold for sbp >115. Trial of void today. Encouraged oral intake. Maintain fluid restriction.
[2022-11-01] MEDS: PANTOPRAZOLE 40 MG/10 ML VIAL IVP SCH ×2 (10:27→21:21)
[2022-11-01] MEDS: VIT A,C & E-LUTEIN-MINERALS 1 EACH TAB PO SCH (10:28)
[2022-11-01] MEDS: METOPROLOL TARTRATE 25 MG TAB PO SCH ×2 (10:28→21:21)
[2022-11-01] MEDS: ATORVASTATIN 40 MG TAB PO SCH (10:28)
[2022-11-01] MEDS: APIXABAN 2.5 MG TABLET PO SCH ×2 (10:28→21:21)
[2022-11-01] MEDS: TAMSULOSIN 0.4 MG CAP.ER.24H PO SCH (10:31)
[2022-11-01 12:29] LABS: Glucose,Whole Blood 104 mg/dL (70-110)
--- NOTE | 2022-11-01 13:26 | P.PN ---
Subjective Progress Note Date: 11/01/22 This is a 86-year-old female with a past medical history significant for hypertension and hyperlipidemia. 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 We have been asked to see the patient in consultation for atrial fibrillation with RVR. Patient examined at the bedside. Patient states she started to feel unwell on Wednesday. She reports having nausea. She reports having vomiting and diarrhea. She states that she has had generalized weakness. She states she has had no appetite and reports decreased oral intake. She denies any use of NSAIDs at home. She denied any chest pain or shortness of breath. She denied any fluttering in her chest or palpitations. Patient presented to the hospital for further evaluation. Patient was found to have urinary tract infection with sepsis, acute renal failure, hyponatremia, and atrial fibrillation with RVR. The patient denies a history of atrial fibrillation. The patient was started on therapeutic Lovenox and IV Cardizem. She remains in atrial for relation of the time of my examination with a heart rate around 110. She is hypotensive this morning with a blood pressure 82/61. * EKG reveals atrial fibrillation with RVR * Chest xray negative for acute process * Laboratory data: WBC 10.1. Hemoglobin 10.8. Platelet count 178. Sodium 123. Potassium 3.3. BUN 60. Creatinine 3.53. Lactic acid 3.0. Repeat 1.0. AST 102. ALT 45. Troponin 0.375. * Current home cardiac medications include metoprolol succinate 50 mg at night, losartan-hydrochlorothiazide 100-12.5mg daily, Lipitor 40 mg daily, and Lopid 600 mg twice a day 10/30/2022 Patient was seen and examined resting comfortably in bed. Labs this morning showed creatinine of 2.64. Echocardiogram with Doppler study showed a normal LV systolic function with mild to moderate MR. She remains on Lovenox. She's converted to sinus mechanism and IV cardizem has been stopped. 10/31/2022 Patient is overall feeling about the same. She continues to complain of nausea. Potassium is low, being replaced by nephrology. 11/01/2022 Patient was seen and examined resting completely bed. She is overall feeling better. Denies any nausea today. Her breathing is stable. Labs show sodium 1:30, potassium 4.3, BUN and creatinine have improved at 39 and 1.33 respectively. AST ALT and alkaline phosphatase remained elevated but improved compared to 10/29/2022. Total bilirubin is normal. Objective - Vital Signs Vital signs: Vital Signs Temp 97.9 F 11/01/22 08:15 Pulse 74 11/01/22 08:15 Resp 16 11/01/22 08:15 BP 111/74 11/01/22 08:15 Pulse Ox 93 L 11/01/22 09:05 FiO2 Intake & Output 10/31/22 11/01/22 11/01/22 18:59 06:59 18:59 Intake Total 120 0 Output Total 1250 1700 0 Balance -1130 -1700 0 Intake: Oral 120 0 Output: Gastric Drainage 0 Urine 1250 1700 Stool 0 0 Urine/Stool Mix 0 Emesis 0 Oral Regurgitation 0 Other 0 Other: Voiding Method Indwelling Catheter Indwelling Catheter Indwelling Catheter # Voids 0 # Bowel Movements 0 - Exam GENERAL: Well-developed in no acute distress. HEENT: Head is normocephalic. Pupils are equal, round. Sclerae anicteric. Mucous membranes of the mouth are moist. Neck supple. No JVD or thyromegaly LUNGS: Respirations even and unlabored. Lungs essentially clear to auscultation bilaterally. HEART: Regular rate and rhythm. S1 and S2 heard. ABDOMEN: Soft. Nondistended. Nontender. EXTREMITIES: Normal range of motion. No clubbing or cyanosis. Peripheral pulses intact. No lower extremity edema NEUROLOGIC: Awake and alert. Oriented x 3. - Labs CBC & Chem 7: 11/01/22 07:47 11/01/22 07:47 Labs: Abnormal Lab Results - Last 24 Hours (Table) 10/31/22 11/01/22 11/01/22 Range/Units 16:52 07:47 07:47 WBC 13.9 H (3.8-10.6) k/uL Hgb 10.2 L (11.4-16.0) gm/dL Hct 33.1 L (34.0-46.0) % RDW 15.8 H (11.5-15.5) % Neutrophils # 11.7 H (1.3-7.7) k/uL Sodium 130 L (137-145) mmol/L Potassium 3.2 L (3.5-5.1) mmol/L Chloride 97 L (98-107) mmol/L BUN 39 H (7-17) mg/dL Creatinine 1.33 H (0.52-1.04) mg/dL Calcium 7.9 L (8.4-10.2) mg/dL AST 78 H (14-36) U/L ALT 45 H (4-34) U/L Alkaline Phosphatase 209 H (38-126) U/L Total Protein 5.4 L (6.3-8.2) g/dL Albumin 2.7 L (3.5-5.0) g/dL Microbiology - Last 24 Hours (Table) 10/28/22 23:35 Blood Culture - Preliminary Blood 10/28/22 23:35 Blood Culture - Preliminary Blood 10/28/22 20:20 Urine Culture - Final Urine,Catheterized Escherichia coli Assessment and Plan Assessment: Generalized weakness Nausea and vomiting with diarrhea Urinary tract infection with sepsis Hyponatremia Lactic acidosis Acute renal failure Abnormal troponin, suspect secondary to above, no evidence of acute coronary syndrome New-onset atrial fibrillation with RVR, currently maintaining sinus mechanism Elevated LFTs Hypotension History of hypertension Hyperlipidemia Plan: From Cardiology's perspective medications were reviewed and will continue the same. Continue to monitor renal function and if creatinine remains less than 1.5 increase Eliquis to 5 mg by mouth twice a day. We will continue to follow the patient and provide further recommendations accordingly. WELDER EXPLOSION note has been reviewed, I agree with a documented findings and plan of care. Patient was seen and examined.
--- NOTE | 2022-11-01 14:47 | P.PN ---
Subjective Progress Note Date: 11/01/22 This is a pleasant 86-year-old patient who follows with Dr. Ortiz. Chronic stable medical conditions include hypertension, hyperlipidemia, arthritis. Patient is normally able to get around. About 2 weeks ago she was diagnosed a UTI. Received antibiotics. About 5 days ago patient started having nausea v omiting and diarrhea that progressed. By time yesterday finding it difficult to get out of bed and not able to keep much down weak and tired. She is having 2-3 bowel movements a day. Watery. No blood. Totally exhausted. In the ER she was found to be in atrial fibrillation with rapid ventricular rate. Was put on a Cardizem drip. Subcu Lovenox This morning laying in bed. Tired. On a soft diet. Other family members are present. No fever no chills October 30: Patient had 2 bowel movements overnight. Does feel a bit better. Color looking better. Daughter the bedside. Diet advanced. Computed tomography scan abdomen does done today nonspecific. She converted to sinus. IV Cardizem was discontinued. Blood pressure low this morning. On sodium bicarbonate drip. 10/31/2022 Patient is evaluated today resting in bed. Complaints of nausea and had an episode of vomiting today. No coffee ground or black emesis. Denies any further episodes of diarrhea actually reports feeling constipated. Has bowel sounds and soft abdomen. Likely medication effect causing the nausea. Urine culture has completed showing E. Coli with drug resistance and she remains on IV ceftriaxone. Sodium is 127 today, potassium 2.7, BUN 46, creatinine 1.62. Patient is on midodrine. Bicarb gtt is off. Patient is started on fluid restriction 1200 ml. 11/01/2022 Patient clinically has improved today. Patient has been up ambulating without difficulty. Urine culture has finalized to E.Coli with no resistance on IV ceftriaxone and pending final recommendations by ID. Creatinine down to 1.33. Indwelling catheter has been removed and patient has urinated and passed voiding trial. Nausea has improve with no further episodes of emesis. Patient is having bowel movements. LFT's remain elevated slightly improving. Abdominal pelvis CT negative for liver/gallbladder findings. Hepatitis panel is done. Review of Systems Constitutional: Denied any fatigue denied any fever. Cardio vascular: denied any chest pain, palpitations Gastrointestinal: denied any nausea, vomiting, diarrhea Pulmonary: Denied any shortness of breath cough Neurologic denied any new focal deficits All inpatient medications were reviewed and appropriate changes in these medications as dictated in the interval history and assessment and plan. Assessment and Plan Assessment -Acute urinary tract infection and sepsis present on admission -Nausea and vomiting likely medication related and improved -Possibly antibiotic associated diarrhea, improved and C. Dif negative. -Hyponatremia, Hypovolemic on admission improving. -Urinary retention currently with indwelling cheng catheter, resolved and catheter has been discontinued. -Paroxysmal atrial fibrillation with a rapid ventricular rate now in normal sinus rhythm -Acute kidney injury combination of prerenal and acute tubular necrosis improving -Essential hypertension with hypotension on admission -Hyperlipidemia GI prophylaxis DVT prophylaxis on eliquis Do Not Resuscitate/Do Not Intubate Plan IV sodium bicarbonate discontinued Continue IV ceftriaxone antibiotics per ID Continue 1200 CC fluid restriction Follow up LFTs in the AM Possible D/C in the next 24 hours The impression and plan of care has been dictated by Juliana Braun Nurse Practitioner as directed. Dr. Tessa MD I have performed a history and physical examination and medical decision making of this patient, discussed the same with the dictator, and agree with the dictators assessment and plan as written, documented as a scribe. Based on total visit time, I have performed more than 50% of this visit. Objective - Vital Signs Vital signs: Vital Signs Temp 97.9 F 11/01/22 08:15 Pulse 74 11/01/22 08:15 Resp 16 11/01/22 08:15 BP 111/74 11/01/22 08:15 Pulse Ox 93 L 11/01/22 09:05 FiO2 Intake & Output 10/31/22 11/01/22 11/01/22 18:59 06:59 18:59 Intake Total 120 0 Output Total 1250 1700 0 Balance -1130 -1700 0 Intake: Oral 120 0 Output: Gastric Drainage 0 Urine 1250 1700 Stool 0 0 Urine/Stool Mix 0 Emesis 0 Oral Regurgitation 0 Other 0 Other: Voiding Method Indwelling Catheter Indwelling Catheter Indwelling Catheter # Voids 0 # Bowel Movements 0 - Labs CBC & Chem 7: 11/01/22 07:47 11/01/22 07:47 Labs: Abnormal Lab Results - Last 24 Hours (Table) 10/31/22 11/01/22 11/01/22 Range/Units 16:52 07:47 07:47 WBC 13.9 H (3.8-10.6) k/uL Hgb 10.2 L (11.4-16.0) gm/dL Hct 33.1 L (34.0-46.0) % RDW 15.8 H (11.5-15.5) % Neutrophils # 11.7 H (1.3-7.7) k/uL Sodium 130 L (137-145) mmol/L Potassium 3.2 L (3.5-5.1) mmol/L Chloride 97 L (98-107) mmol/L BUN 39 H (7-17) mg/dL Creatinine 1.33 H (0.52-1.04) mg/dL Calcium 7.9 L (8.4-10.2) mg/dL AST 78 H (14-36) U/L ALT 45 H (4-34) U/L Alkaline Phosphatase 209 H (38-126) U/L Total Protein 5.4 L (6.3-8.2) g/dL Albumin 2.7 L (3.5-5.0) g/dL Microbiology - Last 24 Hours (Table) 10/28/22 20:20 Urine Culture - Final Urine,Catheterized Escherichia coli 10/28/22 23:35 Blood Culture - Preliminary Blood 10/28/22 23:35 Blood Culture - Preliminary Blood Assessment and Plan Time with Patient: Less than 30
[2022-11-01 16:44] LABS: Glucose,Whole Blood 117 mg/dL (70-110)
[2022-11-01 20:11] LABS: Glucose,Whole Blood 154 mg/dL (70-110)
--- NOTE | 2022-11-01 20:14 | P.PN ---
Subjective Progress Note Date: 11/01/22 Principal diagnosis: Urinary tract infection Patient is a 78-year-old female with a past medical history significant for hypertension and history of recurrent UTI presented to hospital for evaluation of generalized weakness malaise nausea did have an episode of vomiting patient did have positive concerning for UTI she was also tender left lower quadrant area for a CT was done did show hernia but no evidence of any obstruction or colitis On today's evaluation that is 11/01/2022, the patient continues to be afebrile, the patient is breathing comfortably on room air, patient denies any chest pain shortness of cough, no nausea vomiting abdominal pain has improved and diarrhea has resolved Objective - Vital Signs Vital signs: Vital Signs Temp 97.8 F 11/01/22 03:18 Pulse 70 11/01/22 03:18 Resp 14 11/01/22 03:18 BP 113/71 11/01/22 06:20 Pulse Ox 95 11/01/22 03:18 FiO2 Intake & Output 10/31/22 11/01/22 11/01/22 18:59 06:59 18:59 Intake Total 120 0 Output Total 1250 1700 Balance -1130 -1700 Intake: Oral 120 0 Output: Gastric Drainage 0 Urine 1250 1700 Stool 0 Urine/Stool Mix 0 Emesis 0 Oral Regurgitation 0 Other 0 Other: Voiding Method Indwelling Catheter Indwelling Catheter # Voids 0 # Bowel Movements 0 - Exam GENERAL DESCRIPTION: An elderly female lying in bed in no distress RESPIRATORY SYSTEM: Unlabored breathing , decreased breath sounds at bases HEART: S1 S2 regular rate and rhythm , ABDOMEN: Soft , no tenderness EXTREMITIES: No edema feet - Labs CBC & Chem 7: 11/01/22 07:47 11/01/22 07:47 Labs: Abnormal Lab Results - Last 24 Hours (Table) 10/31/22 10/31/22 Range/Units 08:59 16:52 Sodium 127 L (137-145) mmol/L Potassium 2.7 L* 3.2 L (3.5-5.1) mmol/L Chloride 90 L (98-107) mmol/L BUN 46 H (7-17) mg/dL Creatinine 1.62 H (0.52-1.04) mg/dL Glucose 152 H (74-99) mg/dL Calcium 6.7 L (8.4-10.2) mg/dL Microbiology - Last 24 Hours (Table) 10/28/22 20:20 Urine Culture - Final Urine,Catheterized Escherichia coli 10/28/22 23:35 Blood Culture - Preliminary Blood 10/28/22 23:35 Blood Culture - Preliminary Blood Assessment and Plan (1) Urinary tract infection Current Visit: Yes Status: Acute Code(s): N39.0 - URINARY TRACT INFECTION, SITE NOT SPECIFIED SNOMED Code(s): 93852436 Plan: 1patient was in the hospital with generalized weakness malaise did have a urinary symptoms of burning nausea and vomiting also constipation patient noticed to have left lower abdominal wall tenderness with concern for possible diverticulitis versus left-sided pyelonephritis as the patient did have significantly positive UA 2-CT of abdominal pelvis with oral contrast only did show hernia but no obstruction or colitis 3-patient has shown some clinical improvement and urine cultures have been fi nalized with an E. coli that is sensitive pathogen on Rocephin finishing therapy with oral Ceftin This was a telehealth visit Time with Patient: Less than 30
[2022-11-02 06:20] LABS: Glucose,Whole Blood 95 mg/dL (70-110)
[2022-11-02] MEDS: INSULIN ASPART (NovoLOG) 100 UNIT/ML VIAL SQ SCH ×2 (06:20→12:33)
[2022-11-02] MEDS: MIDODRINE 5 MG TAB PO SCH (06:30)
[2022-11-02 07:55] LABS: Basophils % (A) 0 %; Eosinophils # (A) 0.2 k/uL (0-0.7); Eosinophils % (A) 1 %; HCT 32.1 % (34.0-46.0); Lymphocytes # (A) 1.2 k/uL (1.0-4.8); Lymphocytes % (A) 10 %; MCH 25.9 pg (25.0-35.0); MCV 83.6 fL (80.0-100.0); Mean Platelet Volume 7.9; Monocytes # (A) 0.4 k/uL (0-1.0); Monocytes % (A) 3 %; Neutrophils # (A) 10.6 k/uL (1.3-7.7); Neutrophils % (A) 83 %; Platelet Count 211 k/uL (150-450); RBC 3.84 m/uL (3.80-5.40); RDW 15.7 % (11.5-15.5); WBC 12.8 k/uL (3.8-10.6)
[2022-11-02 09:00] LABS: Albumin 2.7 g/dL (3.5-5.0); Calcium 8.2 mg/dL (8.4-10.2); Magnesium 1.8 mg/dL (1.6-2.3); Potassium 4.3 mmol/L (3.5-5.1); Total Bilirubin 0.4 mg/dL (0.2-1.3); Total Protein 5.4 g/dL (6.3-8.2)
[2022-11-02] MEDS: ATORVASTATIN 40 MG TAB PO SCH (09:58)
[2022-11-02] MEDS: APIXABAN 2.5 MG TABLET PO SCH (09:58)
[2022-11-02] MEDS: PANTOPRAZOLE 40 MG/10 ML VIAL IVP SCH (09:58)
[2022-11-02] MEDS: METOPROLOL TARTRATE 25 MG TAB PO SCH (09:58)
[2022-11-02] MEDS: VIT A,C & E-LUTEIN-MINERALS 1 EACH TAB PO SCH (09:58)
[2022-11-02] MEDS: TAMSULOSIN 0.4 MG CAP.ER.24H PO SCH (09:58)
[2022-11-02] MEDS ORDERED: MAGNESIUM OXIDE 400 MG TAB PO SCH (10:00)
--- NOTE | 2022-11-02 10:11 | P.PN ---
Subjective HISTORY OF PRESENTING ILLNESS This is a 86-year-old female with a past medical history significant for hypertension and hyperlipidemia. 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 We have been asked to see the patient in consultation for atrial fibrillation with RVR. Patient examined at the bedside. Patient states she started to feel unwell on Wednesday. She reports having nausea. She reports having vomiting and diarrhea. She states that she has had generalized weakness. She states she has had no appetite and reports decreased oral intake. She denies any use of NSAIDs at home. She denied any chest pain or shortness of breath. She denied any fluttering in her chest or palpitations. Patient presented to the hospital for further evaluation. Patient was found to have urinary tract infection with sepsis, acute renal failure, hyponatremia, and atrial fibrillation with RVR. The patient denies a history of atrial fibrillation. The patient was started on therapeutic Lovenox and IV Cardizem. She remains in atrial for relation of the time of my examination with a heart rate around 110. She is hypotensive this morning with a blood pressure 82/61. EKG reveals atrial fibrillation with RVR Chest xray negative for acute process Laboratory data: WBC 10.1. Hemoglobin 10.8. Platelet count 178. Sodium 123. Potassium 3.3. BUN 60. Creatinine 3.53. Lactic acid 3.0. Repeat 1.0. AST 102. ALT 45. Troponin 0.375. Current home cardiac medications include metoprolol succinate 50 mg at night, losartan-hydrochlorothiazide 100-12.5mg daily, Lipitor 40 mg daily, and Lopid 600 mg twice a day 10/30/2022 Patient was seen and examined resting comfortably in bed. Labs this morning showed creatinine of 2.64. Echocardiogram with Doppler study showed a normal LV systolic function with mild to moderate MR. She remains on Lovenox. She's converted to sinus mechanism and IV cardizem has been stopped. 10/31/2022 Patient is overall feeling about the same. She continues to complain of nausea. Potassium is low, being replaced by nephrology. 11/01/2022 Patient was seen and examined resting completely bed. She is overall feeling better. Denies any nausea today. Her breathing is stable. Labs show sodium 1:30, potassium 4.3, BUN and creatinine have improved at 39 and 1.33 respectively. AST ALT and alkaline phosphatase remained elevated but improved compared to 10/29/2022. Total bilirubin is normal. 11/02 Patient seen and examined. Creatinine improved to 1.0 today. She denies any chest pain or pressure. States has been eating okay and no lightheadedness or dizziness. PHYSICAL EXAMINATION Vital signs reviewed. CONSTITUTIONAL: No apparent distress. HEENT: Head is normocephalic. Pupils are equal, round. Sclerae anicteric. Mucous membranes of the mouth are moist. No JVD. No carotid bruit. CHEST EXAMINATION: Lungs are clear to auscultation. No chest wall tenderness is noted on palpation or with deep breathing. HEART EXAMINATION: Regular rate and rhythm. S1, S2 heard. No murmurs, gallops or rub. ABDOMEN: Soft, nontender. Positive bowel sounds. EXTREMITIES: 2+ peripheral pulses, no lower extremity edema and no calf tenderness. NEUROLOGIC EXAMINATION: Patient is awake, alert and oriented x3. Assessment: Generalized weakness Nausea and vomiting with diarrhea Urinary tract infection with sepsis Hyponatremia Lactic acidosis Acute renal failure Abnormal troponin, suspect secondary to above, no evidence of acute coronary syndrome New-onset atrial fibrillation with RVR, currently maintaining sinus mechanism Elevated LFTs Hypotension History of hypertension Hyperlipidemia Plan: Patient remains in sinus rhythm. Change Eliquis to 5 mg twice a day. Continue current regimen. Appears stable for discharge home. Objective - Vital Signs Vital signs: Vital Signs Temp 97.8 F 11/02/22 04:00 Pulse 81 11/02/22 04:00 Resp 19 11/02/22 04:00 BP 142/84 11/02/22 04:00 Pulse Ox 95 11/02/22 04:00 FiO2 Intake & Output 11/01/22 11/02/22 11/02/22 18:59 06:59 18:59 Intake Total 240 Output Total 840 1000 Balance -840 -1000 240 Intake: Oral 240 Output: Urine 600 1000 Post Void Residual 240 Stool 0 Other: Voiding Method Toilet Toilet # Voids 2 - Labs CBC & Chem 7: 11/02/22 07:36 11/02/22 07:36 Labs: Abnormal Lab Results - Last 24 Hours (Table) 11/01/22 11/01/22 11/01/22 Range/Units 07:47 16:43 20:09 WBC (3.8-10.6) k/uL Hgb (11.4-16.0) gm/dL Hct (34.0-46.0) % RDW (11.5-15.5) % Neutrophils # (1.3-7.7) k/uL Sodium (137-145) mmol/L BUN (7-17) mg/dL POC Glucose (mg/dL) 117 H 154 H (70-110) mg/dL Hemoglobin A1c 6.2 H (0.0-6.0) % Calcium (8.4-10.2) mg/dL AST (14-36) U/L ALT (4-34) U/L Alkaline Phosphatase (38-126) U/L Total Protein (6.3-8.2) g/dL Albumin (3.5-5.0) g/dL 11/02/22 11/02/22 Range/Units 07:36 07:36 WBC 12.8 H (3.8-10.6) k/uL Hgb 10.0 L (11.4-16.0) gm/dL Hct 32.1 L (34.0-46.0) % RDW 15.7 H (11.5-15.5) % Neutrophils # 10.6 H (1.3-7.7) k/uL Sodium 134 L (137-145) mmol/L BUN 34 H (7-17) mg/dL POC Glucose (mg/dL) (70-110) mg/dL Hemoglobin A1c (0.0-6.0) % Calcium 8.2 L (8.4-10.2) mg/dL AST 58 H (14-36) U/L ALT 39 H (4-34) U/L Alkaline Phosphatase 173 H (38-126) U/L Total Protein 5.4 L (6.3-8.2) g/dL Albumin 2.7 L (3.5-5.0) g/dL Microbiology - Last 24 Hours (Table) 10/28/22 23:35 Blood Culture - Preliminary Blood 10/28/22 23:35 Blood Culture - Preliminary Blood
--- NOTE | 2022-11-02 11:08 | P.PN ---
Subjective Patient is seen for follow-up for acute kidney injury. She is currently doing well. Renal function has improved. Patient had urine retention for which a Romero catheter was placed and this has been removed. Serum creatinine improved to 1.0 today Objective - Vital Signs Vital signs: Vital Signs Temp 97.8 F 11/02/22 04:00 Pulse 81 11/02/22 04:00 Resp 19 11/02/22 04:00 BP 142/84 11/02/22 04:00 Pulse Ox 95 11/02/22 04:00 FiO2 Intake & Output 11/01/22 11/02/22 11/02/22 18:59 06:59 18:59 Intake Total 240 Output Total 840 1000 Balance -840 -1000 240 Intake: Oral 240 Output: Urine 600 1000 Post Void Residual 240 Stool 0 Other: Voiding Method Toilet Toilet # Voids 2 - Exam Patient is awake, comfortable, no acute distress Examination of the heart S1 and S2 Examination of the lungs bilateral breath sounds are heard Abdomen is soft nontender Examination of the lower extremities shows no evidence of edema COOKING CHEF exam grossly intact - Labs CBC & Chem 7: 11/02/22 07:36 11/02/22 07:36 Labs: Abnormal Lab Results - Last 24 Hours (Table) 11/01/22 11/01/22 11/01/22 Range/Units 07:47 16:43 20:09 WBC (3.8-10.6) k/uL Hgb (11.4-16.0) gm/dL Hct (34.0-46.0) % RDW (11.5-15.5) % Neutrophils # (1.3-7.7) k/uL Sodium (137-145) mmol/L BUN (7-17) mg/dL POC Glucose (mg/dL) 117 H 154 H (70-110) mg/dL Hemoglobin A1c 6.2 H (0.0-6.0) % Calcium (8.4-10.2) mg/dL AST (14-36) U/L ALT (4-34) U/L Alkaline Phosphatase (38-126) U/L Total Protein (6.3-8.2) g/dL Albumin (3.5-5.0) g/dL 11/02/22 11/02/22 Range/Units 07:36 07:36 WBC 12.8 H (3.8-10.6) k/uL Hgb 10.0 L (11.4-16.0) gm/dL Hct 32.1 L (34.0-46.0) % RDW 15.7 H (11.5-15.5) % Neutrophils # 10.6 H (1.3-7.7) k/uL Sodium 134 L (137-145) mmol/L BUN 34 H (7-17) mg/dL POC Glucose (mg/dL) (70-110) mg/dL Hemoglobin A1c (0.0-6.0) % Calcium 8.2 L (8.4-10.2) mg/dL AST 58 H (14-36) U/L ALT 39 H (4-34) U/L Alkaline Phosphatase 173 H (38-126) U/L Total Protein 5.4 L (6.3-8.2) g/dL Albumin 2.7 L (3.5-5.0) g/dL Microbiology - Last 24 Hours (Table) 10/28/22 23:35 Blood Culture - Preliminary Blood 10/28/22 23:35 Blood Culture - Preliminary Blood Assessment and Plan Assessment: . Acute kidney injury secondary to hemodynamic ATN and severe sepsis. Creatin ine 3.53 on admission - 1.0 today. Nonoliguric. Unknown baseline renal function. No hydronephrosis noted on kidney ultrasound. CAT scan showed bilateral simple cysts. No acute findings. 2. Hypovolemic hyponatremia further worsened with the use of thiazide diuretic. Sodium level improved to 130 today. 3. Metabolic acidosis secondary to lactic acidosis, acute kidney injury and IV fluids. Status post bicarb drip. Improved. 4. A. fib with RVR status post Cardizem drip. On Lopressor. Cardiology following. 5. E. coli UTI on antibiotics. 6. Benign hypertension. Stable. 7. Hypokalemia from diuretics and intracellular shifting from IV bicarb. Magnesium normal. Replaced. Improved. 8. Urinary retention. Status post removal of Romero catheter yesterday On Flomax. Post void scans less than 80 ML 9. Mild to moderate mitral regurgitation. Plan: Patient is stable for discharge from nephrology standpoint.
--- NOTE | 2022-11-02 11:22 | P.PN ---
Subjective Progress Note Date: 11/02/22 Principal diagnosis: Urinary tract infection Patient is a 78-year-old female with a past medical history significant for hypertension and history of recurrent UTI presented to hospital for evaluation of generalized weakness malaise nausea did have an episode of vomiting patient did have positive concerning for UTI she was also tender left lower quadrant area for a CT was done did show hernia but no evidence of any obstruction or colitis On today's evaluation that is 11/02/2022, the patient denies any fever or chills, the patient is breathing comfortably on room air, patient denies any chest pain shortness of cough, the patient denies nausea vomiting abdominal pain and no diarrhea Objective - Vital Signs Vital signs: Vital Signs Temp 97.8 F 11/02/22 04:00 Pulse 81 11/02/22 04:00 Resp 19 11/02/22 04:00 BP 142/84 11/02/22 04:00 Pulse Ox 95 11/02/22 04:00 FiO2 Intake & Output 11/01/22 11/02/22 11/02/22 18:59 06:59 18:59 Intake Total 240 Output Total 840 1000 Balance -840 -1000 240 Intake: Oral 240 Output: Urine 600 1000 Post Void Residual 240 Stool 0 Other: Voiding Method Toilet Toilet # Voids 2 - Exam GENERAL DESCRIPTION: An elderly female lying in bed in no distress RESPIRATORY SYSTEM: Unlabored breathing , decreased breath sounds at bases HEART: S1 S2 regular rate and rhythm , ABDOMEN: Soft , no tenderness EXTREMITIES: No edema feet - Labs CBC & Chem 7: 11/02/22 07:36 11/02/22 07:36 Labs: Abnormal Lab Results - Last 24 Hours (Table) 11/01/22 11/01/22 11/01/22 Range/Units 07:47 16:43 20:09 WBC (3.8-10.6) k/uL Hgb (11.4-16.0) gm/dL Hct (34.0-46.0) % RDW (11.5-15.5) % Neutrophils # (1.3-7.7) k/uL Sodium (137-145) mmol/L BUN (7-17) mg/dL POC Glucose (mg/dL) 117 H 154 H (70-110) mg/dL Hemoglobin A1c 6.2 H (0.0-6.0) % Calcium (8.4-10.2) mg/dL AST (14-36) U/L ALT (4-34) U/L Alkaline Phosphatase (38-126) U/L Total Protein (6.3-8.2) g/dL Albumin (3.5-5.0) g/dL 11/02/22 11/02/22 Range/Units 07:36 07:36 WBC 12.8 H (3.8-10.6) k/uL Hgb 10.0 L (11.4-16.0) gm/dL Hct 32.1 L (34.0-46.0) % RDW 15.7 H (11.5-15.5) % Neutrophils # 10.6 H (1.3-7.7) k/uL Sodium 134 L (137-145) mmol/L BUN 34 H (7-17) mg/dL POC Glucose (mg/dL) (70-110) mg/dL Hemoglobin A1c (0.0-6.0) % Calcium 8.2 L (8.4-10.2) mg/dL AST 58 H (14-36) U/L ALT 39 H (4-34) U/L Alkaline Phosphatase 173 H (38-126) U/L Total Protein 5.4 L (6.3-8.2) g/dL Albumin 2.7 L (3.5-5.0) g/dL Microbiology - Last 24 Hours (Table) 10/28/22 23:35 Blood Culture - Preliminary Blood 10/28/22 23:35 Blood Culture - Preliminary Blood Assessment and Plan (1) Urinary tract infection Current Visit: Yes Status: Acute Code(s): N39.0 - URINARY TRACT INFECTION, SITE NOT SPECIFIED SNOMED Code(s): 04215464 Plan: 1patient was in the hospital with generalized weakness malaise did have a urinary symptoms of burning nausea and vomiting also constipation patient noticed to have left lower abdominal wall tenderness with concern for possible diverticulitis versus left-sided pyelonephritis as the patient did have significantly positive UA 2-CT of abdominal pelvis with oral contrast only did show hernia but no obstruction or colitis 3-patient has shown clinical improvement and urine cultures have been finalized with an E. coli that is sensitive pathogen , patient on Rocephin and will finish therapy with oral Ceftin prescription sent to the pharmacy Time with Patient: Less than 30
[2022-11-02 11:37] LABS: Glucose,Whole Blood 104 mg/dL (70-110)
[2022-11-02 11:48] VITALS: RESP 18; TEMP 98
[2022-11-02 14:03] VITALS: BP 141/64; PULSE 84
[2022-11-02] MEDS ORDERED: APIXABAN 5 MG TAB PO SCH (21:00)
[2022-11-03 02:12] LABS: Hepatitis A Antibody IgM Nonreactive (Nonreactive); Hepatitis B Core IgM Nonreactive (Nonreactive); Hepatitis B Surface Antigen Nonreactive (Nonreactive); Hepatitis C IgG Antibody Nonreactive (Nonreactive)
--- NOTE | 2022-11-03 23:18 | P.DS ---
Providers Date of admission: 10/28/22 23:28 Attending physician: Gregory Aleman Consults: 10/28/22 23:28 Consult Physician Routine Consulting Provider: Dorothy Saleh Consult Reason/Comments: Sepsis, UTI Do you want consulting provider notified?: Yes Consult Physician Routine Consulting Provider: Franco Dumont Consult Reason/Comments: New onset atrial fibrillation Do you want consulting provider notified?: Yes 10/29/22 08:32 Consult Physician Routine Consulting Provider: Kenyon Gomez Consult Reason/Comments: acute renal failure Do you want consulting provider notified?: Yes Primary care physician: Avelino Ortiz [facility] Course: Final Diagnosis -Acute urinary tract infection and sepsis present on admission -Troponin leak likely from the sepsis, cardiology has ruled out an acute coronary syndrome -Lactic acidosis on admission resolved -Elevated LFT's with abdominal pelvis CT showing no acute gallbladder or liver changes. Possibly medication effect patient is on gemfibrozil and atorvastatin outpatient. Possibly from the sepsis as well. -Nausea and vomiting likely medication related and improved -Possibly antibiotic associated diarrhea, improved and C. Dif negative. -Hyponatremia, Hypovolemic on admission resolved -new onset atrial fibrillation with a rapid ventricular rate now in normal sinus rhythm -Acute kidney injury combination of prerenal and acute tubular necrosis resolved -Urinary retention currently with indwelling cheng catheter, resolved and catheter has been discontinued. -Essential hypertension with hypotension on admission -Hyperlipidemia Do Not Resuscitate/Do Not Intubate Discharge Disposition Patient is stable for discharge home. Patient to continue antibiotic therapy with oral ceftin 500 mg twice a day for 7 days. Patient has been started on flom ax, urinary retention has resolved and indwelling catheter has been removed. Likely this can be discontinued outpatient if no further issues with urinary retention. Patient has been anticoagulated with eliquis 5 mg twice a day. Recommend follow up labs to monitor patients liver enzymes closely they have remained elevated this admission. Patient is on atorvastatin and gemfibrozil. Follow up with nephrology, ID, and cardiology. Patient is given information for Dr. Naz Dumont if LFTs remain elevated for follow up if needed. Hospital Course This is a pleasant 86-year-old patient who follows with Dr. Ortiz. Chronic stable medical conditions include hypertension, hyperlipidemia, arthritis. Patient is normally able to get around. About 2 weeks ago she was diagnosed a UTI. Received antibiotics. About 5 days ago patient started having nausea vomiting and diarrhea that progressed. By time yesterday finding it difficult to get out of bed and not able to keep much down weak and tired. She is having 2-3 water bowel movemnts per day and is significantly weakened. Patient reports low appetite. In the ER she was found to be in atrial fibrillation with rapid ventricular rate and was started on a Cardizem gtt. Patients urinalysis was suggestive of an acute urinary tract infection and sepsis is suspected. Patient was hypotensive on admission. Creatinine was 3.53 and patient also had lactic a cidosis. Patient was started on IV fluids. Patient was admitted for acute renal failure, UTI and atrial fibrillation with rapid rate. Patient was started on bicarbonate gtt for the JEANETTE. She did convert to normal sinus rhythm and was taken off the oral Cardizem. Patient was evaluated by cardiology, nephrology, and infectious disease. Patient required urinary catheter as she did develop urinary retention which attributed to the acute kidney injury. Patient was started on IV antibiotics while awaiting for the urine culture to finalize. Experienced nausea and vomiting this was likely from the antibiotics. Diarrhea has improved. Urine culture found to be positive for E. Coli and ID recommending short course of oral ceftin on discharge. Patient had echocardiogram done showing normal LV function and mild to moderate mitral regurgitation. Patient was recommended to be anticoagulated by cardiology. Patient has also had elevated LFTs this admission she had abdominal pelvis CT done showing no acute changes to the gallbladder or liver. There is a spigelian type hernia containing nonobstructed sigmoid colon in the left pelvis laterally. No bowel obstruction. No acute findings are evident. There are simple appearing thin-walled cysts scattered throughout both kidney. No concerning solid or cystic mass clearly seen on noncontrast CT. Patients renal function normalized and patient did pass a voiding trial after urinary catheter has been removed. Recommending for patient to follow up LFT's closely on discharge. 11/02/2022 Patient is evaluated today sitting up in the chair. No acute events overnight. Patient denies shortness of breath, no chest pain. No nausea, vomiting, or diarrhea. Has had normal bowel movement. She is tolerating diet. Patients lungs are clear, S1 S2 auscultated and patient is alert x 3. Focal neurological exam is negative. Patients labs today show a creatinine of 1.03. Sodium of 134. Magnesium of 1.8. Patient will be discharged home with above mentioned recommen dations. Please see medication reconciliation for a list of current medication. Thank you for allowing us to participate in the care of this patient. The impression and plan of care has been dictated by Juliaan Braun, Nurse Practitioner as directed. Dr. Tessa MD I have performed a history and physical examination and medical decision making of this patient, discussed the same with the dictator, and agree with the dictators assessment and plan as written, documented as a scribe. Based on total visit time, I have performed more than 50% of this visit. Patient Condition at Discharge: Stable Plan - Discharge Summary New Discharge Prescriptions: New cefUROXime axetiL [Ceftin] 500 mg PO BID 7 Days #14 tab Tamsulosin [Flomax] 0.4 mg PO PC-BRKFST #30 cap Metoprolol Tartrate [Lopressor] 25 mg PO BID #60 tab Apixaban [Eliquis] 5 mg PO BID #60 tab Magnesium Oxide [Mag-Ox] 400 mg PO BID 7 Days #14 tab Famotidine [Pepcid] 20 mg PO DAILY #7 tablet Continue Ondansetron Odt [Zofran ODT] 4 mg PO Q8HR PRN PRN Reason: Nausea gemfibroziL [Lopid] 600 mg PO BID Vit C/E/Zn/Coppr/Lutein/Zeaxan [Preservision Areds 2 Softgel] 1 cap PO DAILY Atorvastatin [Lipitor] 40 mg PO DAILY Discontinued Metoprolol Succinate (ER) [Toprol Xl] 50 mg PO HS Losartan/Hydrochlorothiazide [Losartan-Hctz 100-12.5 mg Tab] 1 tab PO DAILY Discharge Medication List Atorvastatin [Lipitor] 40 mg PO DAILY 10/28/22 [History] Ondansetron Odt [Zofran ODT] 4 mg PO Q8HR PRN 10/28/22 [History] Vit C/E/Zn/Coppr/Lutein/Zeaxan [Preservision Areds 2 Softgel] 1 cap PO DAILY 10/28/22 [History] gemfibroziL [Lopid] 600 mg PO BID 10/28/22 [History] Apixaban [Eliquis] 5 mg PO BID #60 tab 11/02/22 [Rx] Famotidine [Pepcid] 20 mg PO DAILY #7 tablet 11/02/22 [Rx] Magnesium Oxide [Mag-Ox] 400 mg PO BID 7 Days #14 tab 11/02/22 [Rx] Metoprolol Tartrate [Lopressor] 25 mg PO BID #60 tab 11/02/22 [Rx] Tamsulosin [Flomax] 0.4 mg PO PC-BRKFST #30 cap 11/02/22 [Rx] cefUROXime axetiL [Ceftin] 500 mg PO BID 7 Days #14 tab 11/02/22 [Rx] Follow up Appointment(s)/Referral(s): Robert Peña MD [STAFF PHYSICIAN] - 1 Week (Office will call patient to schedule the appt) Tayler Martinez MD [STAFF PHYSICIAN] - 1-2 Days Avelino Ortiz MD [Primary Care Provider] - 1-2 days Esha Dumont MD [STAFF PHYSICIAN] - As Needed Kenyon Gomez DO [STAFF PHYSICIAN] - 1 Week Ambulatory/Diagnostic Orders: Basic Metabolic Panel [LAB.AMB] Time Frame: 3 Days, Location: None Selected Comprehensive Metabolic Panel [LAB.AMB] Time Frame: 3 Days, Location: None Selected Activity/Diet/Wound Care/Special Instructions: Repeat labs in 2 to 3 days Follow up with primary care Follow up with cardiology Recommend to monitor liver enzymes and f/u labs See GI services Dr. Naz Dumont if needed Discharge Disposition: HOME SELF-CARE
== END 2022-11-02 14:48 | disposition home or self-care (01) | DRG 871 ==
LOC: EC 17:57 → 3SCARD 23:28
PROVIDERS: ADMIT Hospitalist; ATTEND Hospitalist
DX: A41.51 Sepsis due to Escherichia coli [E. coli] (principal); N17.0 Acute kidney failure with tubular necrosis; E87.21 Acute metabolic acidosis; E87.1 Hypo-osmolality and hyponatremia; K52.1 Toxic gastroenteritis and colitis; K57.92 Diverticulitis of intestine, part unspecified, without perforation or abscess without bleeding; N39.0 Urinary tract infection, site not specified; Z16.30 Resistance to unspecified antimicrobial drugs; I95.89 Other hypotension; I48.0 Paroxysmal atrial fibrillation; I34.0 Nonrheumatic mitral (valve) insufficiency; I10 Essential (primary) hypertension; E86.1 Hypovolemia; T36.95XA Adverse effect of unspecified systemic antibiotic, initial encounter; E78.5 Hyperlipidemia, unspecified; Z66 Do not resuscitate; M19.90 Unspecified osteoarthritis, unspecified site; B96.20 Unspecified Escherichia coli [E. coli] as the cause of diseases classified elsewhere; R53.81 Other malaise; K59.00 Constipation, unspecified; E87.6 Hypokalemia; T50.2X5A Adverse effect of carbonic-anhydrase inhibitors, benzothiadiazides and other diuretics, initial encounter; R77.8 Other specified abnormalities of plasma proteins; N28.1 Cyst of kidney, acquired; R65.20 Severe sepsis without septic shock; Z20.822 Contact with and (suspected) exposure to COVID-19; Z88.0 Allergy status to penicillin; Z79.899 Other long term (current) drug therapy; Z87.440 Personal history of urinary (tract) infections
CPT/HCPCS: 36415; 71045; 74176; 76770; 80048; 80053; 80074; 81001; 82533; 82565; 83036; 83605; 83735; 84132; 84439; 84443; 84484; 85025; 85610; 85730; 87077; 87086; 87186; 87324; 87636; 93005; 93306; 94760; 96361; 96365; 96366; 96367; 96368; 96372; 99291

== ENCOUNTER → 2022-11-19 | Outpatient (CLI) | payer MEDICARE ==
[2022-11-19 10:40] LABS: ALT 19 U/L (4-34); AST 25 U/L (14-36); African American GFR (CKD) 65 (>60 ml/min/1.73 sqM); Albumin 4.3 g/dL (3.5-5.0); Albumin/Globulin Ratio 1.3; Alkaline Phosphatase 123 U/L (38-126); Anion Gap 13 mmol/L; Blood Urea Nitrogen 21 mg/dL (7-17); Calcium 9.6 mg/dL (8.4-10.2); Carbon Dioxide 20 mmol/L (22-30); Chloride 108 mmol/L (98-107); Globulin 3.4 g/dL; Glucose 92 mg/dL (74-99); Non-African American GFR(CKD) 57 (>60 ml/min/1.73 sqM); Potassium 3.8 mmol/L (3.5-5.1); Sodium 141 mmol/L (137-145); Total Bilirubin 0.4 mg/dL (0.2-1.3); Total Protein 7.7 g/dL (6.3-8.2)
[2022-11-19 16:18] LABS: Chol/HDL Ratio 3.72 Ratio; LDL Cholesterol,Calculated 109.1 mg/dL (0.0-131.0)
== END | disposition home or self-care (01) ==
LOC: LABWHC1 09:23
PROVIDERS: ATTEND Internal Medicine Interventional Cardiology
DX: I50.32 Chronic diastolic (congestive) heart failure (principal); E78.2 Mixed hyperlipidemia
CPT/HCPCS: 36415; 80053; 80061; 83880

== ENCOUNTER → 2023-03-30 | Outpatient (CLI) | payer MEDICARE ==
[2023-03-30 16:06] LABS: BUN/Creat Ratio 18.75 Ratio (12.00-20.00); Chol/HDL Ratio 3.07 Ratio; Glucose 96 mg/dL (70-110); LDL Cholesterol,Calculated 110.4 mg/dL (0.0-131.0)
[2023-03-30 16:07] LABS: ALT 18 U/L (8-44); AST 28 U/L (13-35); Albumin 4.7 d/dL (3.8-4.9); Albumin/Globulin Ratio 1.88 Ratio (1.60-3.17); Alkaline Phosphatase 106 U/L (41-126); Calcium 9.8 mg/dL (8.7-10.3); Carbon Dioxide 25.4 mmol/L (21.6-31.8); Chloride 103 mmol/L (96-109); Globulin 2.5 d/dL (1.6-3.3); Sodium 140 mmol/L (135-145); Total Bilirubin 0.5 mg/dL (0.3-1.2); Total Protein 7.2 d/dL (6.2-8.2)
== END | disposition home or self-care (01) ==
LOC: LABWHC1 10:11
PROVIDERS: ATTEND Internal Medicine Interventional Cardiology
DX: E78.2 Mixed hyperlipidemia (principal)
CPT/HCPCS: 36415; 80053; 80061

== ENCOUNTER → 2023-08-24 | Outpatient (CLI) | payer MEDICARE ==
[2023-08-24 15:47] LABS: ALT 29 U/L (8-44); AST 31 U/L (13-35); Albumin 4.6 g/dL (3.8-4.9); Albumin/Globulin Ratio 1.53 Ratio (1.60-3.17); Alkaline Phosphatase 118 U/L (41-126); BUN/Creat Ratio 17.12 Ratio (12.00-20.00); Blood Urea Nitrogen 13.7 mg/dL (9.0-27.0); Chloride 106 mmol/L (96-109); Chol/HDL Ratio 2.99 Ratio; Glucose 97 mg/dL (70-110); LDL Cholesterol,Calculated 76.3 mg/dL (0.0-131.0); Potassium 3.8 mmol/L (3.5-5.5); Sodium 143 mmol/L (135-145); Total Bilirubin 0.4 mg/dL (0.3-1.2); Total Protein 7.6 g/dL (6.2-8.2)
== END | disposition home or self-care (01) ==
LOC: LABWHC1 10:49
PROVIDERS: ATTEND Internal Medicine Interventional Cardiology
DX: I10 Essential (primary) hypertension (principal); E78.2 Mixed hyperlipidemia
CPT/HCPCS: 36415; 80053; 80061

== ENCOUNTER → 2024-01-21 | Outpatient (CLI) | payer MEDICARE ==
--- NOTE | 2024-01-21 10:51 | FL ---
EXAMINATION TYPE: FL barium enema DATE OF EXAM: 01/21/2024 9:14 AM CLINICAL INDICATION:Female, 88 years old with history of K57.30 diverticulosis; COMPARISON: 10/30/2022 TECHNIQUE: The procedure was explained and patient history elicited. All patient questions were answ ered prior to beginning. Multiple spot fluoroscopic images of the colon were obtained after the recta l administration of liquid barium as the contrast agent. Multiple postprocedural overhead images, w ere obtained and reviewed. Fluoroscopic time: 1 minute 22 seconds min Fluoroscopic images: No Radiographs taken: 20 DAP: Not reported [id number] FINDINGS: The room service manager abdominal radiograph demonstrates a normal bowel gas pattern without dilated loo ps of small or large bowel. There is no evidence for organomegaly or pneumoperitoneum. No abnormal calcifications. The visualized osseous structures are intact. The colon demonstrates normal course and contour without evidence of focal stricture or internal fill ing defects. There is multiple colonic diverticula present. Views of the cecum with manual compressi on are unremarkable. Postevacuation images are unremarkable. IMPRESSION: 1. No evidence for abnormal stricture or mass lesion within the sigmoid colon. 2. Colonic diverticulosis.
== END | disposition home or self-care (01) ==
LOC: RADFLMAIN 07:53
PROVIDERS: ATTEND Surgery Plastic and Reconstructive Surgery
DX: K57.30 Diverticulosis of large intestine without perforation or abscess without bleeding (principal)
CPT/HCPCS: 74270

== ENCOUNTER → 2024-05-08 | Outpatient (CLI) | payer MEDICARE ==
[2024-05-08 15:44] LABS: ALT 27 U/L (8-44); AST 38 U/L (13-35); Albumin 4.7 g/dL (3.8-4.9); Albumin/Globulin Ratio 1.57 Ratio (1.60-3.17); Alkaline Phosphatase 111 U/L (41-126); BUN/Creat Ratio 40.14 Ratio (12.00-20.00); Blood Urea Nitrogen 28.1 mg/dL (9.0-27.0); Calcium 9.8 mg/dL (8.7-10.3); Carbon Dioxide 21.5 mmol/L (21.6-31.8); Chloride 104 mmol/L (96-109); Glucose 102 mg/dL (70-110); Potassium 3.8 mmol/L (3.5-5.5); Sodium 141 mmol/L (135-145); Total Bilirubin 0.5 mg/dL (0.3-1.2); Total Protein 7.7 g/dL (6.2-8.2)
[2024-05-08 17:13] LABS: Basophils # (A) 0.04 X 10*3/uL (0.00-0.10); Basophils % (A) 0.7 %; Eosinophils # (A) 0.12 X 10*3/uL (0.04-0.35); Eosinophils % (A) 2.1 %; HCT 38.4 % (37.2-46.3); HGB 12.2 g/dL (12.0-15.0); Lymphocytes # (A) 1.29 X 10*3/uL (0.90-5.00); Lymphocytes % (A) 22.7 %; MCH 29.4 pg (27.0-32.0); MCHC 31.8 g/dL (32.0-37.0); MCV 92.5 FL (80.0-97.0); Mean Platelet Volume 10.4 FL (9.5-12.2); Monocytes # (A) 0.45 X 10*3/uL (0.20-1.00); Monocytes % (A) 7.9 %; NRBC Per 100 WBC 0 X 10*3/uL (0.00-0.01); Neutrophils # (A) 3.76 X 10*3/uL (1.80-7.70); Neutrophils % (A) 66.2 %; Platelet Count 264 X 10*3/uL (140-440); RBC 4.15 X 10*6/uL (4.10-5.20); RDW 14.1 % (11.5-14.5); WBC 5.68 X 10*3/uL (4.50-10.00)
== END | disposition home or self-care (01) ==
LOC: LABWHC1 09:26
PROVIDERS: ATTEND Surgery Plastic and Reconstructive Surgery
DX: K57.92 Diverticulitis of intestine, part unspecified, without perforation or abscess without bleeding (principal)
CPT/HCPCS: 36415; 80053; 85025; 86850; 86900; 86901

== ENCOUNTER 2024-05-11 10:01 | Inpatient (IN) | payer MEDICARE ==
[2024-05-11] MEDS ORDERED: Antibiotics per Pharmacy 1 EACH MISC MISCELLANE PRN (10:52)
--- NOTE | 2024-05-11 10:54 | P.GSHP ---
History of Present Illness H&P Date: 05/11/24 CHIEF COMPLAINT: Sigmoid diverticulosis possible obstruction HISTORY OF PRESENT ILLNESS: The patient is a 88-year-old female who presents with change in bowel habits including intermittent large bowel obstruction for over 6 months. She reports intermittent gas bloat. She had attempted prior colonoscopy unsuccessful. She presents for surgical options, sigmoid colectomy. PAST MEDICAL HISTORY: Please see list. PAST SURGICAL HISTORY: Please see list. MEDICATIONS: Please see list. ALLERGIES: Please see list. SOCIAL HISTORY: No illicit drug use FAMILY HISTORY: No reports of Crohn disease or ulcerative colitis. REVIEW OF ORGAN SYSTEMS: CONSTITUTIONAL: Denies any fever or chills. HEENT: Denies any trouble with vision or nosebleeds. No difficulty swallowing. LYMPHATIC: The patient denies any lumps and bumps around the neck. ENDOCRINE: Denies any thyroid disorders. Has blood sugar glucose intolerance. RESPIRATORY: Denies pneumonia. Denies any troubles with breathing or dyspnea on exertion. CARDIOVASCULAR: Denies any chest pain, palpitations, or recent heart attacks. GASTROINTESTINAL: Has chronic diverticulitis. GENITOURINARY: Has increased urinary frequency. MUSCULOSKELETAL: Has back pain, stiffness, joint arthritis. NEUROLOGIC: Denies any numbness or tingling along the distal extremities. No seizure disorders or headaches. PSYCHIATRIC: Denies depression or suidical ideation. HEMATOLOGIC: Denies any abnormal bleeding or bruising. PHYSICAL EXAM: VITAL SIGNS: Stable GENERAL: Well-developed pleasant in no acute distress. HEENT: No scleral icterus. Extraocular movements grossly intact. Moist buccal mucosa. NECK: Supple without lymphadenopathy. CHEST: Unlabored respirations. Equal bilateral excursions. CARDIOVASCULAR: Tachycardic ABDOMEN: Soft, nontender, nondistended. MUSCULOSKELETAL: No clubbing, cyanosis, or edema. NERUO: Cranial nerves 2-12 grossly intact. PSYCH: Alert and oriented to person place and time. ASSESSMENT: 1. Sigmoid diverticulosis with intermittent bowel obstruction PLAN: 1. Benefits and risks of surgical robotic sigmoid resection was reviewed in detail. Robotic-assisted approach was also described. 2. Enhanced colon recovery program. 3. DVT prophylaxis. 4. Antibiotic prophylaxis. 5. Inpatient hospitalization greater than 2 nights. 6. Recommend colonoscopy for extent of obstruction and evaluation of neoplasm. 7. Immediate EKG preop due to tachyarrhythmia 8. CBC and CMP preoperatively 9. She is elevated risk for complications Past Medical History Past Medical History: Hyperlipidemia, Hypertension Additional Past Medical History / Comment(s): Bladder infection, doesn't know why she's on eliquis History of Any Multi-Drug Resistant Organisms: None Reported Past Surgical History: Hysterectomy Past Anesthesia/Blood Transfusion Reactions: No Reported Reaction Smoking Status: Never smoker - Past Family History Father History Unknown: Yes Medications and Allergies Home Medications Medication Instructions Recorded Confirmed Type Atorvastatin [Lipitor] 40 mg PO HS 10/28/22 05/11/24 History Vit C/E/Zn/Coppr/Lutein/Zeaxan 1 cap PO DAILY 10/28/22 05/11/24 History [Preservision Areds 2 Softgel] Apixaban [Eliquis] 5 mg PO BID #60 tab 11/02/22 05/09/24 Rx Ezetimibe [Zetia] 10 mg PO DAILY 05/09/24 05/09/24 History Furosemide [Lasix] 20 mg PO DAILY 05/09/24 05/11/24 History Metoprolol Tartrate [Lopressor] 50 mg PO DAILY 05/09/24 05/09/24 History Allergies Allergy/AdvReac Type Severity Reaction Status Date / Time Penicillins Allergy Rash/Hives Verified 05/11/24 10:30 Surgical - Exam Vital Signs Temp Pulse Resp BP Pulse Ox 98.3 F 121 H 16 149/91 97 05/11/24 10:40 05/11/24 10:40 05/11/24 10:40 05/11/24 10:40 05/11/24 10:40
[2024-05-11] MEDS: IV FLUID CONTINUATION 1,000 ML IV ONE ×2 (11:11→13:30)
[2024-05-11 11:21] LABS: Basophils % (A) 0 %; Eosinophils # (A) 0.1 k/uL (0-0.7); Eosinophils % (A) 1 %; HCT 36.9 % (34.0-46.0); HGB 12.1 gm/dL (11.4-16.0); Hypochromasia Slight; Lymphocytes # (A) 1.1 k/uL (1.0-4.8); Lymphocytes % (A) 19 %; MCH 29.3 pg (25.0-35.0); MCHC 32.9 g/dL (31.0-37.0); Mean Platelet Volume 6.8; Monocytes # (A) 0.3 k/uL (0-1.0); Monocytes % (A) 5 %; Neutrophils # (A) 4.1 k/uL (1.3-7.7); Neutrophils % (A) 73 %; Platelet Count 227 k/uL (150-450); RBC 4.14 m/uL (3.80-5.40); RDW 13.9 % (11.5-15.5); WBC 5.6 k/uL (3.8-10.6)
[2024-05-11 11:43] LABS: ALT 33 U/L (4-34); AST 50 U/L (14-36); African American GFR (CKD) >90 (>60 ml/min/1.73 sqM); Albumin 4.6 g/dL (3.5-5.0); Alkaline Phosphatase 118 U/L (38-126); Anion Gap 8 mmol/L; Blood Urea Nitrogen 15 mg/dL (7-17); Carbon Dioxide 22 mmol/L (22-30); Chloride 109 mmol/L (98-107); Glucose 94 mg/dL (74-99); Non-African American GFR(CKD) 78 (>60 ml/min/1.73 sqM); Potassium 3.4 mmol/L (3.5-5.1); Sodium 139 mmol/L (137-145); Total Protein 7.6 g/dL (6.3-8.2)
[2024-05-11 11:45] LABS: Calcium 9.6 mg/dL (8.4-10.2)
[2024-05-11] MEDS ORDERED: LIDOCAINE 1% INJ 10MG/ML (20 ML MDV) ONE (11:46)
[2024-05-11] MEDS ORDERED: PROPOFOL 10 MG/ML 20 ML VIAL IV ONE (11:46)
--- NOTE | 2024-05-11 12:47 | P.PCN ---
Date of Procedure: 05/11/24 Description of Procedure: PREOPERATIVE DIAGNOSIS: Sigmoid diverticulitis partial obstruction POSTOPERATIVE DIAGNOSIS: Sigmoid diverticulitis partial obstruction OPERATION: Colonoscopy to the ascending colon SURGEON: Aye Hernandez MD. ANESTHESIA: MAC. INDICATIONS: The patient is a 58-year-old female who presents for colonoscopy screening. Benefits and risks were described and informed consent was obtained. DESCRIPTION OF PROCEDURE: The patient had undergone Sutab prep. The patient had been brought into the operating room and laid in the left lateral decubitus position. After adequate intravenous sedation, the rectum was examined with 2% lidocaine jelly. No external hemorrhoids were encountered. The rectal tone was within normal limits. No lesions were palpated in the rectal vault. An Olympus colonoscope was advanced ascending colon. The prep was excellent. Scattered diverticulosis was encountered with partial obstruction. No colonic polyps were found. No evidence of focal colitis was found. Retroflexion of the scope demonstrated grade 3 internal hemorrhoids without active bleeding or inflammation. The colon was desufflated. The patient had tolerated the procedure well. Withdrawal time was over 6 minutes. FINDINGS: Aronchick preparation quality scale 1 (1-5) Internal hemorrhoids, grade 3 External prolapsed hemorrhoids, grade 3 No arteriovenous malformations. No adenomatous polyps. No focal colitis. Sigmoid diverticulosis with partial obstruction RECOMMENDATIONS: Inpatient admission for colectomy sigmoid colon described IV fluid hydration Bonds prep for colectomy while inpatient Plan - Discharge Summary Discharge Rx Participant: No New Discharge Prescriptions: No Action Furosemide [Lasix] 20 mg PO DAILY Vit C/E/Zn/Coppr/Lutein/Zeaxan [Preservision Areds 2 Softgel] 1 cap PO DAILY Atorvastatin [Lipitor] 40 mg PO HS Apixaban [Eliquis] 5 mg PO BID #60 tab Metoprolol Tartrate [Lopressor] 50 mg PO DAILY Ezetimibe [Zetia] 10 mg PO DAILY Discharge Medication List Atorvastatin [Lipitor] 40 mg PO HS 10/28/22 [History] Vit C/E/Zn/Coppr/Lutein/Zeaxan [Preservision Areds 2 Softgel] 1 cap PO DAILY 10/28/22 [History] Apixaban [Eliquis] 5 mg PO BID #60 tab 11/02/22 [Rx] Ezetimibe [Zetia] 10 mg PO DAILY 05/09/24 [History] Furosemide [Lasix] 20 mg PO DAILY 05/09/24 [History] Metoprolol Tartrate [Lopressor] 50 mg PO DAILY 05/09/24 [History]
[2024-05-11] MEDS: SODIUM CHLORIDE 0.9% 1,000 ML IV ONE (13:30)
[2024-05-11] MEDS: PATIENT'S OWN--metroNIDAZOLE 500 MG TAB PO SCH (13:53)
[2024-05-11] MEDS: PATIENT'S OWN--NEOMYCIN 500 MG TAB PO SCH (13:54)
[2024-05-11] MEDS: LACTATED RINGERS 1,000 ML IV SCH (14:41)
[2024-05-11] MEDS: HEPARIN SODIUM,PORCINE 5,000 UNIT/ML 1 ML VIAL SQ STA (14:41)
[2024-05-11] MEDS: POTASSIUM CHLORIDE ER 20 MEQ TAB.ER PO SCH (15:00)
[2024-05-11] MEDS: PEG 3350 (236 GM/BTL) + LYTES 4,000 ML BOTTLE PO ONE (15:02)
[2024-05-11] MEDS: 0.9% NACL WITH KCL 20 MEQ/L 1,000 ML IV SCH (16:11)
[2024-05-12 05:51] LABS: Basophils % (A) 0 %; Eosinophils # (A) 0.1 k/uL (0-0.7); Eosinophils % (A) 2 %; HCT 31.7 % (34.0-46.0); HGB 10.3 gm/dL (11.4-16.0); Hypochromasia Moderate; Lymphocytes # (A) 1.3 k/uL (1.0-4.8); Lymphocytes % (A) 26 %; MCH 29.7 pg (25.0-35.0); MCHC 32.4 g/dL (31.0-37.0); MCV 91.6 fL (80.0-100.0); Mean Platelet Volume 7.1; Monocytes # (A) 0.3 k/uL (0-1.0); Monocytes % (A) 6 %; Neutrophils # (A) 3.1 k/uL (1.3-7.7); Neutrophils % (A) 64 %; Platelet Count 209 k/uL (150-450); RBC 3.46 m/uL (3.80-5.40); RDW 14.2 % (11.5-15.5); WBC 4.9 k/uL (3.8-10.6)
[2024-05-12 06:01] LABS: ALT 29 U/L (4-34); AST 43 U/L (14-36); African American GFR (CKD) >90 (>60 ml/min/1.73 sqM); Albumin 3.4 g/dL (3.5-5.0); Albumin/Globulin Ratio 1.4; Alkaline Phosphatase 81 U/L (38-126); Anion Gap 7 mmol/L; Blood Urea Nitrogen 8 mg/dL (7-17); Calcium 8.7 mg/dL (8.4-10.2); Carbon Dioxide 18 mmol/L (22-30); Chloride 115 mmol/L (98-107); Globulin 2.5 g/dL; Glucose 81 mg/dL (74-99); Non-African American GFR(CKD) 82 (>60 ml/min/1.73 sqM); Potassium 4.3 mmol/L (3.5-5.1); Sodium 140 mmol/L (137-145); Total Bilirubin 0.4 mg/dL (0.2-1.3); Total Protein 5.9 g/dL (6.3-8.2)
[2024-05-12] MEDS: EZETIMIBE 10 MG TAB PO SCH (08:06)
[2024-05-12] MEDS: METOPROLOL TARTRATE 50 MG TAB PO SCH (08:09)
[2024-05-12] MEDS: IV FLUID CONTINUATION 1,000 ML IV ONE (08:35)
[2024-05-12] MEDS: ALVIMOPAN 12 MG CAPSULE PO PRN (09:02)
[2024-05-12] MEDS: ACETAMINOPHEN TAB 500 MG TAB PO PRN (09:02)
[2024-05-12] MEDS: MELOXICAM 7.5 MG TAB PO PRN (09:02)
[2024-05-12] MEDS: ONDANSETRON 4 MG/2 ML VIAL IVP STA (09:03)
[2024-05-12] MEDS: DEXAMETHASONE SOD PHOSPHATE 4 MG/ML 1 ML VIAL IVP STA (09:03)
[2024-05-12] MEDS: MIDAZOLAM 2 MG/2 ML VIAL IV ONE (09:09)
--- NOTE | 2024-05-12 09:24 | P.ANPRN ---
Procedure Note - Anesthesia - Nerve Block Performed Bilateral Erector Spinae Single Time Out Performed: Yes Date of Procedure: 05/12/24 Procedure Start Time: Procedure Stop Time: Location of Patient: PreOp Indication: Acute Post-Operative Pain, Analgesia, Requested by Surgeon Sedation Type: Sedate with meaningful contact maintained Preparation: Sterile Prep Position: Prone Needle Types: Pajunk Needle Gauge: 21 Ultrasound used to visualize needle placement: Yes Ultrasound used to observe medication spread: Yes Injectate: 0.5% Ropivacaine (see comment for volume) (Ropiv 20ml+[id number]--Vcyh side. Needle at T11 level.) Blood Aspirated: No Pain Paresthesia on Injection Noted: No Resistance on Injection: Normal Image Stored and Saved: Yes Events: Uneventful and Well Tolerated
[2024-05-12] MEDS ORDERED: ePHEDrine 50 MG/ML 1 ML VIAL ONE (09:42)
[2024-05-12] MEDS ORDERED: fentaNYL (PF) 50 MCG/ML 2 ML AMP ONE (09:42)
[2024-05-12] MEDS ORDERED: ROCURONIUM 10 MG/ML (5 ML VIAL) IV ONE (09:42)
[2024-05-12] MEDS ORDERED: PHENYLEPHRINE 10 MG/ML VIAL ONE (09:42)
[2024-05-12] MEDS ORDERED: NEOSTIGMINE 1 MG/ML 10 ML VIAL ONE (09:42)
[2024-05-12] MEDS ORDERED: ROPIVACAINE 5 MG/ML 30 ML VIAL ONE (09:42)
[2024-05-12] MEDS ORDERED: WATER FOR INJECTION, STERILE 10 ML VIAL IV ONE (09:42)
[2024-05-12] MEDS ORDERED: GLYCOPYRROLATE 0.2 MG/ML 2 ML VIAL ONE (09:42)
[2024-05-12] MEDS ORDERED: SUCCINYLCHOLINE CHLORIDE 200 MG/10 ML VIAL IV ONE (09:42)
[2024-05-12] MEDS ORDERED: PROPOFOL 10 MG/ML 20 ML VIAL IV ONE (09:42)
[2024-05-12] MEDS ORDERED: DEXAMETHASONE SOD PHOSPHATE 4 MG/ML 1 ML VIAL ONE (09:42)
[2024-05-12] MEDS ORDERED: LIDOCAINE 1% INJ 10MG/ML (20 ML MDV) ONE (09:42)
[2024-05-12] MEDS: metroNIDAZOLE-NS PMX 500 MG in SALINE 1 100ML.BAG IVPB PRN (09:47)
--- NOTE | 2024-05-12 10:09 | P.PN ---
Subjective Progress Note Date: 05/12/24 CHIEF COMPLAINT: Diverticulitis HISTORY OF PRESENT ILLNESS: The patient is a 88-year-old female admitted for partial bowel obstruction due to diverticulitis. Patient reports no increased abdominal pain today. She feels better after IV fluid hydration last night for dehydration. Additionally, her tachycardia had resolved. ROS: No reports of nausea and vomiting. No fevers or chills. No new chest pain. No productive sputum PHYSICAL EXAM: VITAL SIGNS: Reviewed CONSTITUTIONAL: Well developed and in no acute distress. EYES: Conjuctivae without sclera icterus. Extraocular movements grossly intact. HEAD, EARS, NOSE, THROAT: Moist buccal mucosa. Head is atraumatic, normocephalic. Hears conversational speech. No nasal drainage. RESPIRATORY: Non-labored respirations and equal bilateral excursions. CARDIOVASCULAR: Palpable 2+ radial pulses. ABDOMEN: Abdomen soft nontender. MUSCULOSKELETAL: No gross deformity of the lower extremities noted. No clubbing. No cyanosis. SKIN: Good skin turgor. Well perfused. NEUROLOGIC: Cranial nerves II through XII grossly intact. No focal or late ralizing signs. PSYCH: Appropriate affect. Alert and oriented to person, place and time. SKIN: Hyperpigmentation along the gluteal folds, pre-existing skin breakdown of stage 1 to stage 2 sacral ulcer. CLINICAL LABS: Reviewed. Hemoglobin down 12.1-10.1 consistent when hemoconcentration/dehydration. Potassium increased from 3.4-4.3 after supplementation. LFTs elevated ASSESSMENT: 1. Diverticulitis with partial bowel obstruction 2. Atrial fibrillation, chronic 3. Dehydration 4. Pre-existing anemia 5. Hypertensive heart disease with congestive heart failure 6. Hypokalemia present on admission resolved 7. Stage II sacral decubitus ulcer 8. Elevated LFTs PLAN: 1. Patient is elevated risk for complications due to pre-existing comorbidities 2. Robotic colectomy described for low anterior resection/sigmoid colectomy due to partial bowel obstruction from chronic diverticulitis 3. Inpatient admission anticipated for more than 2 nights 4. Perioperative recovery including soft food diet, no seeds, no nuts, no broccoli reviewed with high-protein diet 5. All questions were addressed 6. Shared decision making performed regarding overall global care Objective - Vital Signs Vital signs: Vital Signs Temp 98.2 F 05/12/24 08:38 Pulse 68 05/12/24 09:40 Resp 16 05/12/24 09:40 BP 124/65 05/12/24 09:40 Pulse Ox 100 05/12/24 09:40 FiO2 Intake & Output 05/11/24 05/12/24 05/12/24 18:59 06:59 18:59 Intake Total 900 300 Balance 900 300 Weight 62.5 kg Intake: IV 900 300 Other: Voiding Method Toilet Toilet # Voids 1 1 1 # Bowel Movements 1 - Labs CBC & Chem 7: 05/12/24 05:20 05/12/24 05:20 Labs: Abnormal Lab Results - Last 24 Hours (Table) 05/11/24 05/12/24 05/12/24 Range/Units 11:02 05:20 05:20 RBC 3.46 L (3.80-5.40) m/uL Hgb 10.3 L (11.4-16.0) gm/dL Hct 31.7 L (34.0-46.0) % Potassium 3.4 L (3.5-5.1) mmol/L Chloride 109 H 115 H (98-107) mmol/L Carbon Dioxide 18 L (22-30) mmol/L AST 50 H 43 H (14-36) U/L Total Protein 5.9 L (6.3-8.2) g/dL Albumin 3.4 L (3.5-5.0) g/dL
[2024-05-12] MEDS: LACTATED RINGERS 1,000 ML IV ONE ×2 (10:34→10:40)
[2024-05-12] MEDS: LIDOCAINE 1%-EPI 1:100,000 20 ML VIAL SQ ONE (10:40)
[2024-05-12] MEDS ORDERED: NALOXONE 0.4 MG/ML 1 ML VIAL IV PRN (14:24)
[2024-05-12] MEDS ORDERED: HYDROmorphone 2 MG/ML 1 ML SYRINGE IVP PRN (14:24)
--- NOTE | 2024-05-12 14:41 | P.OP ---
Date of Procedure: 05/12/24 Description of Procedure: SURGEON: ROMELIA BIRD MD PREOPERATIVE DIAGNOSES: 1. Sigmoid diverticulitis with large bowel obstruction 2. Diastolic congestive heart failure due to hypertensive heart disease 3. Chronic anticoagulation for atrial fibrillation 4. Chronic atrial fibrillation 5. Hypokalemia, pre-existing on admission 6. Hyperlipidemia POSTOPERATIVE DIAGNOSES: 1. Large bowel obstruction due to incarcerated left inguinal hernia involving sigmoid colon 2. Diastolic congestive heart failure due to hypertensive heart disease 3. Chronic anticoagulation for atrial fibrillation 4. Chronic atrial fibrillation 5. Hypokalemia, pre-existing on admission 6. Hyperlipidemia 7. Pelvic adhesions OPERATION: 1. Robotic-assisted da Shine Xi laparoscopic sigmoid colectomy/low anterior resection aborted for robotic-assisted da Shine Xi laparoscopic repair of initial indirect left inguinal hernia with mesh, 10 x [address] 2. Robotic-assisted da Shine Xi laparoscopic lysis of adhesions, pelvis 4. Robotic-assisted da Shine Xi laparoscopic left pelvic reconstruction ANESTHESIA: General with local anesthetic, regional block ESTIMATED BLOOD LOSS: 20 mL. SPECIMENS: 1. Left inguinal lipoma and hernia sac COMPLICATIONS: None. FINDINGS: 1. Intraoperative findings with incarcerated sigmoid colon as a cause of her large bowel obstruction required updated consent obtained by her daughter Petra De Jesus for inguinal hernia repair with mesh placement. 2. Left inguinal hernia defect incorporating over 80% of the sigmoid colon with large bowel obstruction, colon viable 3. Pelvic lesions along the left pelvis lysed with hook cautery and vessel sealer requiring pelvic wall reconstruction including of the inguinal area 4. Midline and pelvic adhesions from prior hysterectomy identified. INDICATIONS: The patient is a 88-year-old female who presents with change in bowel habits, large bowel obstruction found during colonoscopy from diverticulitis. Diagnostic studies including imaging barium enema demonstrated moderate sigmoid diverticulosis including redundant sigmoid colon with partial bowel obstruction. Robotic colectomy was described. Benefits and risk including bleeding, infection, injury to the ureter, need for further surgery was described. Informed consent was obtained. DESCRIPTION: In the preoperative area, the patient was marked with indelible marker along the inguinal hernia. The patient was brought to the operating room and initially laid in supine position. The abdomen had been prepped and draped in standard sterile fashion. Ioban draping was also placed. Prior to incision, a timeout protocol was confirmed with surgical team regarding patient's name including procedures to be performed and location along the bilateral groin. Initial positioning for the robotic assisted ports were selected whereby 15 cm superior to the target anatomy, 0 degree 5 mm laparoscopic trocar entry was performed at the left upper quadrant. The abdomen was insufflated to 15 mmHg which he had tolerated well. Diagnostic laparoscopy demonstrated no injury to bowel, viscera or mesentery. Moderate midline adhesions include of the pelvic incisions were identified from prior open hysterectomy. Next, along the epigastrium, 8 mm robot trocar was placed. An 8-mm robotic trocar was placed under direct visualization at the right upper quadrant. An 8 mm port was placed at the left upper quadrant. All trocars were positioned between 10-cm apart from each other. A robotic trocar 12 mm placed along the right upper abdominal wall, lateral. The [employer] XI robot was primed, draped, prepared for docking along upper abdomen of the patient. The patient was positioned 21 steep Trendelenburg position I then went to the [employer] Xi console. The farm assistant was at bedside for exchange of the robot arms and equipment. Along the midline, moderate omental adhesions were identified from prior open hysterectomy. Adhesions were addressed using vessel sealer for lysis of adhesions. After the adhesions were cleared, along the left pelvis the sigmoid colon was found densely incarcerated in a left inguinal hernia. Upon this finding, the sigmoid colon was carefully reduced without colotomy using blunt dissection, vessel sealer including hook artery to release the hernia sac as the colon was caught in a sliding hernia of the hernia sac. Once released, the sigmoid colon incarcerated was over 80% involvement of the left inguinal hernia. The colon was viable without colotomy. The size of the hernia defect was 3 cm with intraoperative films obtained of the left indirect inguinal hernia. Using a nonabsorbable 2-0 VLOC, the ligament of the left inguinal hernia including conjoined tendon was oversewn until the defect was completely closed. The peritoneum which was released from the pelvis was reapproximated using 2-0 V-Loc absorbable. The hernia sac incorporated the peritoneum of the iliacs including laterally towards the femoral medially. (Prior to proceeding with the left pelvic floor reconstruction, I scrubbed out the case to obtain consent from the patient's daughter for mesh placement with intraoperative images reviewed alongside with her. After obtaining consent, I proceeded with repair and pelvic floor reconstruction.) The defect was found to be completely closed. As an onlay only a 11.[address] mesh by Bard was available and used for her reconstruction. The mesh was introduced into the abdominal cavity via the 12 mm trocar. The mesh was tacked to the pelvis using absorbable 2-0 VLOC sutures. Intraoperative images were obtained with additional pelvic adhesions released which was causing functional partial obstruction of the colon. The robot was undocked from the patient's bedside. I then rescrubbed into the case. The 12 mm trocar site was closed using 0 Vicryl and Darren Moore. Insufflation was released from the abdominal cavity and all instruments were removed from the abdominal cavity. The rest of incisions were reapproximated using 4-0 Monocryl in a running subcuticular fashion. Incisions were cleansed using dilute hydrogen peroxide. Liquid glue was applied to the skin. Romero catheter was removed at the end of the case. At the end of the procedure, the needle, sponge and instrument counts had been verified correct by the ear mold laboratory technician. The patient had tolerated the procedure well and was taken to the postanesthesia care unit in stable condition. Due to the extensive nature of bowel involvement including obstruction from left inguinal hernia and pelvic floor reconstruction, and patient's comorbidities, continued inpatient admission advised.
[2024-05-12] MEDS: ONDANSETRON 4 MG/2 ML VIAL IVP PRN (15:26)
[2024-05-12] MEDS: HYDROmorphone 0.5 MG/0.5 ML SYRINGE IVP PRN (17:28)
[2024-05-13] MEDS: PANTOPRAZOLE 40 MG/10 ML VIAL IV SCH (08:00)
[2024-05-13 09:59] LABS: BUN/Creat Ratio 14.57 Ratio (12.00-20.00); Blood Urea Nitrogen 10.2 mg/dL (9.0-27.0); Calcium 8.6 mg/dL (8.7-10.3); Carbon Dioxide 17.2 mmol/L (21.6-31.8); Chloride 108 mmol/L (96-109); Glucose 85 mg/dL (70-110); Sodium 137 mmol/L (135-145)
--- NOTE | 2024-05-13 15:10 | P.PN ---
Subjective Progress Note Date: 05/13/24 CHIEF COMPLAINT: Large bowel obstruction HISTORY OF PRESENT ILLNESS: The patient is a 88-year-old female admitted for partial bowel obstruction. Intraoperative findings demonstrated large bowel obstruction was due to a large left inguinal hernia incorporating more than 80% of the sigmoid colon. Patient reports today that she feels great. She is passing flatus and had bowel movements. She is tolerating diet. She is voiding spontaneously. Her daughter is at bedside. ROS: No reports of nausea and vomiting. No fevers or chills. No new chest pain. No productive sputum PHYSICAL EXAM: VITAL SIGNS: Reviewed CONSTITUTIONAL: Well developed and in no acute distress. EYES: Conjuctivae without sclera icterus. Extraocular movements grossly intact. HEAD, EARS, NOSE, THROAT: Moist buccal mucosa. Head is atraumatic, normocephalic. Hears conversational speech. No nasal drainage. RESPIRATORY: Non-labored respirations and equal bilateral excursions. CARDIOVASCULAR: Palpable 2+ radial pulses. ABDOMEN: Incision clean dry intact. MUSCULOSKELETAL: No gross deformity of the lower extremities noted. No clubbing. No cyanosis. SKIN: Good skin turgor. Well perfused. NEUROLOGIC: Cranial nerves II through XII grossly intact. No focal or lateralizing signs. PSYCH: Appropriate affect. Alert and oriented to person, place and time. CLINICAL LABS: Reviewed. Potassium within normal limits including creatinine and BUN. ASSESSMENT: 1. Large bowel obstruction due to incarcerated left inguinal hernia 2. Atrial fibrillation, chronic 3. Dehydration 4. Pre-existing anemia 5. Hypertensive heart disease with congestive heart failure 6. Hypokalemia present on admission resolved 7. Stage II sacral decubitus ulcer 8. Elevated LFTs PLAN: 1. Clinically, patient is having large bowel movements after reduction of incarcerated sigmoid colon to left inguinal hernia. 2. Her pain is well-controlled and she reports no nausea and vomiting, she is voiding spontaneously, and she is tolerating diet. 3. Patient started at bedside and patient will not resume blood thinner for now until 05/16/2024. 4. Close follow-up as outpatient including using telehealth. 5. All questions addressed. Objective - Vital Signs Vital signs: Vital Signs Temp 98.2 F 05/13/24 07:29 Pulse 94 05/13/24 07:29 Resp 17 05/13/24 07:29 BP 120/69 05/13/24 07:29 Pulse Ox 96 05/13/24 07:29 FiO2 Intake & Output 05/12/24 05/13/24 05/13/24 18:59 06:59 18:59 Intake Total 2250 Output Total 1570 3000 Balance 680 -3000 Intake: IV 2250 Output: Urine 1550 3000 Uretheral (Romero) 1500 Estimated Blood Loss 20 Other: Voiding Method Toilet Indwelling Catheter # Voids 1 1 2 # Bowel Movements 1 1 - Labs CBC & Chem 7: 05/12/24 05:20 05/13/24 05:30 Labs: Abnormal Lab Results - Last 24 Hours (Table) 05/13/24 Range/Units 05:30 Carbon Dioxide 17.2 L (21.6-31.8) mmol/L Calcium 8.6 L (8.7-10.3) mg/dL
--- NOTE | 2024-05-13 15:15 | P.DS ---
Providers Date of admission: 05/11/24 10:52 Expected date of discharge: 05/13/24 Attending physician: Aye Hernandez Consults: 05/12/24 04:38 Consult Physician Routine Consulting Provider: [facility] Consult Reason/Comments: Regional block Do you want consulting provider notified?: Yes Primary care physician: [facility] Course: POSTOPERATIVE DIAGNOSES: 1. Large bowel obstruction due to incarcerated left inguinal hernia involving sigmoid colon 2. Diastolic congestive heart failure due to hypertensive heart disease 3. Chronic anticoagulation for atrial fibrillation 4. Chronic atrial fibrillation 5. Hypokalemia, pre-existing on admission 6. Hyperlipidemia 7. Pelvic adhesions COURSE: The patient is a 88-year-old female admitted for large bowel obstruction due to diverticulitis. She underwent colonoscopy for tattooing where persistent obstruction was identified proximal to the sigmoid colon. Patient also presented with tachyarrhythmia and on and was fluid resuscitated with correction of her electrolytes prior to surgery. During surgery, patient had intraoperative finding of the sigmoid colon over 80% incarcerated within a large left inguinal hernia as a cause of her bowel obstruction. Reduction repair including reconstruction of the left pelvic wall was performed. Postoperatively, patient was tolerating diet, passing flatus, pain well- controlled, voiding spontaneously and feeling great for discharge. Large bowel obstruction was resolved and patient was in good condition and stable for discharge. All questions were addressed. Close outpatient follow-up was described including no blood thinners until cleared by surgeon. Procedures: OPERATION: 1. Robotic-assisted da Shine Xi laparoscopic sigmoid colectomy/low anterior resection aborted for robotic-assisted da Shine Xi laparoscopic repair of initial indirect left inguinal hernia with mesh, 10 x [address] 2. Robotic-assisted da Shine Xi laparoscopic lysis of adhesions, pelvis 4. Robotic-assisted da Shine Xi laparoscopic left pelvic reconstruction ANESTHESIA: General with local anesthetic, regional block ESTIMATED BLOOD LOSS: 20 mL. SPECIMENS: 1. Left inguinal lipoma and hernia sac COMPLICATIONS: None. FINDINGS: 1. Indirect left inguinal hernia defect, 3 cm by 7 cm 2. Multiport, 4 trocar technique performed. 3. Intraoperative findings with incarcerated sigmoid colon as a cause of her large bowel obstruction required updated consent obtained by her daughter Petra De Jesus for inguinal hernia repair with mesh placement. Patient Condition at Discharge: Good Plan - Discharge Summary Discharge Rx Participant: No New Discharge Prescriptions: New Simethicone [Gas-X] 125 mg PO AC-TID PRN #20 capsule PRN Reason: Pain Acetaminophen Tab [Tylenol Tab] 1,000 mg PO Q6HR PRN #30 tablet PRN Reason: Pain Continue Furosemide [Lasix] 20 mg PO DAILY Vit C/E/Zn/Coppr/Lutein/Zeaxan [Preservision Areds 2 Softgel] 1 cap PO DAILY Atorvastatin [Lipitor] 40 mg PO HS Apixaban [Eliquis] 5 mg PO BID #60 tab Metoprolol Tartrate [Lopressor] 50 mg PO DAILY Ezetimibe [Zetia] 10 mg PO DAILY Discharge Medication List Atorvastatin [Lipitor] 40 mg PO HS 10/28/22 [History] Vit C/E/Zn/Coppr/Lutein/Zeaxan [Preservision Areds 2 Softgel] 1 cap PO DAILY 10/28/22 [History] Apixaban [Eliquis] 5 mg PO BID #60 tab 11/02/22 [Rx] Ezetimibe [Zetia] 10 mg PO DAILY 05/09/24 [History] Furosemide [Lasix] 20 mg PO DAILY 05/09/24 [History] Metoprolol Tartrate [Lopressor] 50 mg PO DAILY 05/09/24 [History] Acetaminophen Tab [Tylenol Tab] 1,000 mg PO Q6HR PRN #30 tablet 05/13/24 [Rx] Simethicone [Gas-X] 125 mg PO AC-TID PRN #20 capsule 05/13/24 [Rx] Follow up Appointment(s)/Referral(s): Aye Hernandez MD [STAFF PHYSICIAN] - 05/16/24 6:45 pm (TELEHEALTH) Patient Instructions/Handouts: Bowel Obstruction (DC) Activity/Diet/Wound Care/Special Instructions: DO NOT RESUME BLOOD THINNER UNTIL 05/16/24 No lifting for 4 pounds in 4 weeks, June 11, 2024 NO LONG DRIVES OR AIRPLANE RIDES OVER 60 MINUTES FOR THE NEXT 2 WEEKS, 05/26/2024 DUE TO HIGH RISK OF PULMONARY EMBOLISM/DVTs Using antibacterial soap. May shower. No bathtub soaks for 2 weeks, 05/26/2024 Wear abdominal binder daily for comfort except for showering. Use Tylenol, simethicone scheduled for the next 24-48 hours for best pain relief. Discharge Disposition: HOME SELF-CARE
[2024-05-13 15:58] VITALS: BP 145/84; PULSE 65; RESP 18; TEMP 97.8
== END 2024-05-13 16:09 | disposition home or self-care (01) | DRG 336 ==
LOC: ORWHC2ENDO 10:01 → 4SSUR 10:52 → ORWHC2ENDO 10:52 → 4SSUR 12:01
PROVIDERS: ADMIT Surgery Plastic and Reconstructive Surgery; ATTEND Surgery Plastic and Reconstructive Surgery
PROC: 0DJD8ZZ Inspection of Lower Intestinal Tract, Via Natural or Artificial Opening Endoscopic (ICD-10-PCS; 2024-05-11)
PROC: 0YU64JZ Supplement Left Inguinal Region with Synthetic Substitute, Percutaneous Endoscopic Approach (ICD-10-PCS; 2024-05-12)
PROC: 8E0W4CZ Robotic Assisted Procedure of Trunk Region, Percutaneous Endoscopic Approach (ICD-10-PCS; 2024-05-12)
PROC: 0DNW4ZZ Release Peritoneum, Percutaneous Endoscopic Approach (ICD-10-PCS; principal; 2024-05-12 09:50)
DX: K40.30 Unilateral inguinal hernia, with obstruction, without gangrene, not specified as recurrent (principal); I48.20 Chronic atrial fibrillation, unspecified; I50.32 Chronic diastolic (congestive) heart failure; N73.6 Female pelvic peritoneal adhesions (postinfective); K57.30 Diverticulosis of large intestine without perforation or abscess without bleeding; Z12.11 Encounter for screening for malignant neoplasm of colon; K64.2 Third degree hemorrhoids; I11.0 Hypertensive heart disease with heart failure; D64.9 Anemia, unspecified; L89.152 Pressure ulcer of sacral region, stage 2; E87.6 Hypokalemia; E86.0 Dehydration; E78.5 Hyperlipidemia, unspecified; D17.79 Benign lipomatous neoplasm of other sites; Z79.899 Other long term (current) drug therapy; Z79.01 Long term (current) use of anticoagulants
CPT/HCPCS: 45378; 64999; 80048; 80053; 85025

== ENCOUNTER → 2024-06-20 | Outpatient (CLI) | payer MEDICARE ==
--- NOTE | 2024-06-20 22:41 | CT ---
EXAMINATION TYPE: CT abdomen pelvis wo con DATE OF EXAM: 06/20/2024 3:53 PM COMPARISON: 10/30/2022 CLINICAL INDICATION: Female, 88 years old with history of K40.30 INGUINALH ERNIA WITH OBSTRUCTION WO GANGREN; inguinal hernia repair 1 month ago still having abdominal pain TECHNIQUE: Axial CT abdomen pelvis wo con;Sagittal and coronal reformats were created on a separate workstation. Contrast used: mL of , (none if empty) Oral contrast used: with Oral Contrast (none if empty) CT DLP: 958 mGycm, Automated exposure control for dose reduction was used. FINDINGS: LOWER CHEST: Heart is mildly enlarged for size. Coronary artery atherosclerosis. ABDOMEN LIVER: Simple appearing cysts in the liver. GALLBLADDER AND BILE DUCTS: Unremarkable. PANCREAS: Unremarkable. SPLEEN: Similar appearing hypodense area aspect measuring 20 x 17 mm. ADRENAL GLANDS: Unremarkable. KIDNEYS AND URETERS: No evidence of hydronephrosis or renal calculus. The ureters are unremarkable. Bilateral renal cysts are present with hyperdense left renal cyst measuring 6 mm. In the right measur ing 6 cm. PELVIS BLADDER: No evidence for wall thickening or mass given limitations of exam. REPRODUCTIVE: Unremarkable. ABDOMEN & PELVIS STOMACH AND BOWEL: No evidence of bowel obstruction. Large hiatal hernia containing majority of the a nd stomach. Scattered colonic diverticula. PERITONEUM/RETROPERITONEUM: No evidence of pneumoperitoneum or free fluid. Surgical repair changes of left lower abdominal wall mesh in place. No remaining spigelian hernia. VASCULATURE: No evidence of aortic aneurysm. MUSCULOSKELETAL: No acute osseous abnormalities, similar focus of gas in the left iliac bone. LYMPH NODES: No gross evidence for lymphadenopathy. Left inguinal nodule measuring 11 mm unchanged fr om prior. SOFT TISSUE/ABDOMINAL WALL: Fat-containing bilateral inguinal hernias. IMPRESSION: 1. Surgical repair changes of left lower abdominal wall worse mesh in place. No remaining spigelian hernia. 2. Large hiatal hernia containing majority of the and stomach. 3. Bilateral renal cysts some of which are hyperdense. Consider renal mass MRI for complete evaluati on of the kidney lesions. 4. Similar hypoattenuating area within the spleen which is indeterminate. This can be assessed on re nal mass protocol MRI. [facility], , 06/20/2024 10:38 PM
== END | disposition home or self-care (01) ==
LOC: RADCTMAIN 13:55
PROVIDERS: ATTEND Surgery Plastic and Reconstructive Surgery
DX: K40.30 Unilateral inguinal hernia, with obstruction, without gangrene, not specified as recurrent (principal); K44.9 Diaphragmatic hernia without obstruction or gangrene; N28.1 Cyst of kidney, acquired
CPT/HCPCS: 74176

== ENCOUNTER → 2024-08-15 | Outpatient (CLI) | payer MEDICARE ==
[2024-08-15 19:03] LABS: Basophils # (A) 0.06 X 10*3/uL (0.00-0.10); Basophils % (A) 0.8 %; Eosinophils # (A) 0.12 X 10*3/uL (0.04-0.35); Eosinophils % (A) 1.6 %; HCT 40.9 % (37.2-46.3); HGB 12.5 g/dL (12.0-15.0); Lymphocytes % (A) 19.6 %; MCH 26.8 pg (27.0-32.0); MCHC 30.6 g/dL (32.0-37.0); MCV 87.8 FL (80.0-97.0); Mean Platelet Volume 9.5 FL (9.5-12.2); Monocytes % (A) 6.5 %; NRBC Per 100 WBC 0 X 10*3/uL (0.00-0.01); Neutrophils # (A) 5.45 X 10*3/uL (1.80-7.70); Neutrophils % (A) 71.2 %; Platelet Count 255 X 10*3/uL (140-440); RBC 4.66 X 10*6/uL (4.10-5.20); RDW 16.5 % (11.5-14.5); WBC 7.65 X 10*3/uL (4.50-10.00)
[2024-08-15 19:38] LABS: Blood Urea Nitrogen 17.2 mg/dL (9.0-27.0); Chloride 105 mmol/L (96-109); Chol/HDL Ratio 2.98 Ratio; Glucose 97 mg/dL (70-110); LDL Cholesterol,Calculated 93.5 mg/dL (0.0-131.0); Potassium 3.7 mmol/L (3.5-5.5); Sodium 141 mmol/L (135-145)
[2024-08-15 19:39] LABS: ALT 23 U/L (8-44); AST 29 U/L (13-35); Albumin 4.4 g/dL (3.8-4.9); Albumin/Globulin Ratio 1.42 Ratio (1.60-3.17); Alkaline Phosphatase 122 U/L (41-126); Calcium 9.5 mg/dL (8.7-10.3); Globulin 3.1 g/dL (1.6-3.3); Total Bilirubin 0.6 mg/dL (0.3-1.2); Total Protein 7.5 g/dL (6.2-8.2)
== END | disposition home or self-care (01) ==
LOC: LABWHC1 09:24
PROVIDERS: ATTEND Internal Medicine Interventional Cardiology
DX: I10 Essential (primary) hypertension (principal); E78.5 Hyperlipidemia, unspecified; N18.9 Chronic kidney disease, unspecified
CPT/HCPCS: 36415; 80053; 80061; 85025